=== PATIENT | female | born 1980 | race Caucasian/White ===

== ENCOUNTER 2018-05-22 13:13 | Emergency (ER) | payer SELFPAY ==
[~2018-05-22] VITALS: Ht 152.4 cm; Wt 142.9 kg
[~2018-05-22 13:13] MED LIST: ALBU8.5H2 IH; BENZ200C25 PO; CIPR-225 PO; DOXY100C42 PO; METH4TAB PO; METR500T PO; NAPR550T PO; ONDA4TAB8 PO; PRCD5U PO; PRED10TA PO; TRAM-42 PO; [UNRECOGNIZED DRUG - OTHER]
--- OUTSIDE RECORDS SUMMARY | 2018-05-22 13:21 | XMS REPORT | Continuity of Care Document ---
Author Author [facility] Address Unknown Phone Unavailable Allergies Active Description Code Type Severity Reaction Onset Reported/Identified Relationship to Patient Clinical Status Yes NKANo Known Allergies NKA Miscellaneous Allergy Unknown N/A 04/14/2007 Yes Bactrim Drug Allergy 06/05/2011 Yes Bactrim Drug Allergy N/A N/A 06/05/2011 Medications There is no data. Problems Date Dx Coded Attending Type Code Diagnosis Diagnosed By 04/07/2008 COREY VUONG APRN R 110.5 TINEA CORPORIS 04/07/2008 COREY VUONG APRN R 477.9 RHINITIS ALLERGIC 04/07/2008 110.5 TINEA CORPORIS 04/07/2008 477.9 RHINITIS ALLERGIC 04/07/2008 110.5 TINEA CORPORIS 04/07/2008 477.9 RHINITIS ALLERGIC 04/07/2008 HENNESSY DO, REG K 110.5 TINEA CORPORIS 04/07/2008 HENNESSY DO REG K 477.9 RHINITIS ALLERGIC 04/07/2008 FARSHAD TIRADO SARA R 110.5 TINEA CORPORIS 04/07/2008 FARSHAD TIRADO SARA R 477.9 RHINITIS ALLERGIC 04/07/2008 HENNESSY DO REG K 110.5 TINEA CORPORIS 04/07/2008 HENNESSY DO REG K 477.9 RHINITIS ALLERGIC 04/07/2008 JORGE SAAB PSYD L 110.5 TINEA CORPORIS 04/07/2008 JORGE SAAB PSYD L 477.9 RHINITIS ALLERGIC 04/07/2008 RODRI HINDS APRN L 110.5 TINEA CORPORIS 04/07/2008 RODRI HINDS APRN L 477.9 RHINITIS ALLERGIC 06/20/2008 COREY VUONG APRN 041.19 STAPHYLOCOCCUS INFECTION IN CONDITIONS CLASSIFIED ELSEWHERE AND OF UNSPECIFIED SITE OTHER STAPHYLOCOCCUS 06/20/2008 COREY VUONG APRN 696.1 PSORIASIS 06/20/2008 COREY VUONG APRN R 724.3 SCIATICA 06/20/2008 041.19 STAPHYLOCOCCUS INFECTION IN CONDITIONS CLASSIFIED ELSEWHERE AND OF UNSPECIFIED SITE OTHER STAPHYLOCOCCUS 06/20/2008 696.1 PSORIASIS 06/20/2008 724.3 SCIATICA 06/20/2008 041.19 STAPHYLOCOCCUS INFECTION IN CONDITIONS CLASSIFIED ELSEWHERE AND OF UNSPECIFIED SITE OTHER STAPHYLOCOCCUS 06/20/2008 696.1 PSORIASIS 06/20/2008 724.3 SCIATICA 06/20/2008 HENNESSY DO REG K 041.19 STAPHYLOCOCCUS INFECTION IN CONDITIONS CLASSIFIED ELSEWHERE AND OF UNSPECIFIED SITE OTHER STAPHYLOCOCCUS 06/20/2008 HENNESSY DO REG K 696.1 PSORIASIS 06/20/2008 HENNESSY DO, REG K 724.3 SCIATICA 06/20/2008 FARSHAD TIRADO SARA R 041.19 STAPHYLOCOCCUS INFECTION IN CONDITIONS CLASSIFIED ELSEWHERE AND OF UNSPECIFIED SITE OTHER STAPHYLOCOCCUS 06/20/2008 FARSHAD TIRADO SARA R 696.1 PSORIASIS 06/20/2008 FARSHAD TIRADO SARA R 724.3 SCIATICA 06/20/2008 GERHARD STERLING REG K 041.19 STAPHYLOCOCCUS INFECTION IN CONDITIONS CLASSIFIED ELSEWHERE AND OF UNSPECIFIED SITE OTHER STAPHYLOCOCCUS 06/20/2008 HENNESSY DO REG K 696.1 PSORIASIS 06/20/2008 HENNESSY TRINITY STERLINGA K 724.3 SCIATICA 06/20/2008 JORGE SAAB PSYD ANN L 041.19 STAPHYLOCOCCUS INFECTION IN CONDITIONS CLASSIFIED ELSEWHERE AND OF UNSPECIFIED SITE OTHER STAPHYLOCOCCUS 06/20/2008 JORGE SAAB PSYD ANN L 696.1 PSORIASIS 06/20/2008 JORGE SAAB PSYD ANN L 724.3 SCIATICA 06/20/2008 GUZMAN TIRADO RODRI L 041.19 STAPHYLOCOCCUS INFECTION IN CONDITIONS CLASSIFIED ELSEWHERE AND OF UNSPECIFIED SITE OTHER STAPHYLOCOCCUS 06/20/2008 MADL INDUSTRIAL TECHNOLOGY TEACHER, RODRI L 696.1 PSORIASIS 06/20/2008 MADL CELESTINO, RODRI L 724.3 SCIATICA 01/24/2009 COREY VUONG APRN R 626.6 nonmenstrual bleeding 01/24/2009 626.6 nonmenstrual bleeding 01/24/2009 626.6 nonmenstrual bleeding 01/24/2009 TRINITY HENNESSY DOA K 626.6 nonmenstrual bleeding 01/24/2009 RANDOLPH YEN APRNINA R 626.6 nonmenstrual bleeding 01/24/2009 HENNESSY DO, REG K 626.6 nonmenstrual bleeding 01/24/2009 JORGE SAAB PSYD L 626.6 nonmenstrual bleeding 01/24/2009 RODRI HINDS APRN L 626.6 nonmenstrual bleeding 03/08/2010 COREY VUONG APRN R 599.0 URINARY TRACT INFECTION, SITE NOT SPECIFIED 03/08/2010 599.0 URINARY TRACT INFECTION, SITE NOT SPECIFIED 03/08/2010 599.0 URINARY TRACT INFECTION, SITE NOT SPECIFIED 03/08/2010 HENNESSY DO, REG K 599.0 URINARY TRACT INFECTION, SITE NOT SPECIFIED 03/08/2010 SARA YEN APRN R 599.0 URINARY TRACT INFECTION, SITE NOT SPECIFIED 03/08/2010 HENNESSY DO, REG K 599.0 URINARY TRACT INFECTION, SITE NOT SPECIFIED 03/08/2010 JORGE SAAB PSYD L 599.0 URINARY TRACT INFECTION, SITE NOT SPECIFIED 03/08/2010 RODRI HINDS APRN L 599.0 URINARY TRACT INFECTION, SITE NOT SPECIFIED 01/10/2011 Ot 599.0 URIN TRACT INFECTION NOS 01/10/2011 Ot 789.00 ABDOMINAL PAIN, UNSPECIFIED SITE 03/17/2011 Ot 285.9 ANEMIA NOS 03/17/2011 Ot 695.9 ERYTHEMATOUS COND NOS 03/17/2011 Ot 782.3 EDEMA 03/18/2011 ALDO VUONG APRNIA R 285.9 ANEMIA 03/18/2011 COREY VUONG APRN R 782.3 EDEMA 03/18/2011 285.9 ANEMIA 03/18/2011 782.3 EDEMA 03/18/2011 285.9 ANEMIA 03/18/2011 782.3 EDEMA 03/18/2011 HENNESSY DO, REG K 285.9 ANEMIA 03/18/2011 HENNESSY DO, REG K 782.3 EDEMA 03/18/2011 RANDOLPH YEN APRNINA R 285.9 ANEMIA 03/18/2011 FARSHAD TIRADO SARA R 782.3 EDEMA 03/18/2011 HENNESSY DO, REG K 285.9 ANEMIA 03/18/2011 HENNESSY DO, REG K 782.3 EDEMA 03/18/2011 JORGE SAAB PSYD ANN L 285.9 ANEMIA 03/18/2011 JORGE SAAB PSYD ANN L 782.3 EDEMA 03/18/2011 NATE HINDS APRNA L 285.9 ANEMIA 03/18/2011 GUZMAN TIRADO, RODRI L 782.3 EDEMA 03/22/2011 COREY VUONG APRN R 462 PHARYNGITIS ACUTE 03/22/2011 462 PHARYNGITIS ACUTE 03/22/2011 462 PHARYNGITIS ACUTE 03/22/2011 HENNESSY DO REG K 462 PHARYNGITIS ACUTE 03/22/2011 RANDOLPH YEN APRNINA R 462 PHARYNGITIS ACUTE 03/22/2011 HENNESSY DO, REG K 462 PHARYNGITIS ACUTE 03/22/2011 JORGE SAAB PSYD L 462 PHARYNGITIS ACUTE 03/22/2011 NATE HINDS APRNA L 462 PHARYNGITIS ACUTE 06/05/2011 COREY VUONG APRN R 041.86 H. PYLORI INFECTION 06/05/2011 COREY VUONG APRN R 724.2 BACK PAIN, LOWER 06/05/2011 COREY VUONG APRN R 787.03 VOMITING ALONE 06/05/2011 COREY VUONG APRN R V18.0 FAM HX DIABETES MELLITUS 06/05/2011 041.86 H. PYLORI INFECTION 06/05/2011 724.2 BACK PAIN, LOWER 06/05/2011 787.03 VOMITING ALONE 06/05/2011 V18.0 FAM HX DIABETES MELLITUS 06/05/2011 041.86 H. PYLORI INFECTION 06/05/2011 724.2 BACK PAIN, LOWER 06/05/2011 787.03 VOMITING ALONE 06/05/2011 V18.0 FAM HX DIABETES MELLITUS 06/05/2011 HENNESSY DO, REG K 041.86 H. PYLORI INFECTION 06/05/2011 HENNESSY DO, REG K 724.2 BACK PAIN, LOWER 06/05/2011 HENNESSY DO, REG K 787.03 VOMITING ALONE 06/05/2011 HENNESSY DO, REG K V18.0 FAM HX DIABETES MELLITUS 06/05/2011 SARA YEN APRN R 041.86 H. PYLORI INFECTION 06/05/2011 FARSHAD INDUSTRIAL TECHNOLOGY TEACHER, SARA R 724.2 BACK PAIN, LOWER 06/05/2011 FARSHAD LOYOLAN, SARA R 787.03 VOMITING ALONE 06/05/2011 FARSHAD INDUSTRIAL TECHNOLOGY TEACHER, SARA R V18.0 FAM HX DIABETES MELLITUS 06/05/2011 HENNESSY , REG K 041.86 H. PYLORI INFECTION 06/05/2011 HENNESSY DO, REG K 724.2 BACK PAIN, LOWER 06/05/2011 HENNESSY DO, REG K 787.03 VOMITING ALONE 06/05/2011 HENNESSY DO, REG K V18.0 FAM HX DIABETES MELLITUS 06/05/2011 JORGE SAAB PSYD ANN L 041.86 H. PYLORI INFECTION 06/05/2011 JORGE SAAB PSYD ANN L 724.2 BACK PAIN, LOWER 06/05/2011 JORGE SAAB PSYD ANN L 787.03 VOMITING ALONE 06/05/2011 JORGE SAAB PSYD ANN L V18.0 FAM HX DIABETES MELLITUS 06/05/2011 GUZMAN LOYOLACHUCKIE WeathersNYA L 041.86 H. PYLORI INFECTION 06/05/2011 GUZMAN LOYOLAN, RODRI L 724.2 BACK PAIN, LOWER 06/05/2011 GUZMAN LOYOLAN, RODRI L 787.03 VOMITING ALONE 06/05/2011 GUZMAN LOYOLAN, RODRI L V18.0 FAM HX DIABETES MELLITUS 03/26/2012 ALDO VUONG APRNIA R 271.3 GLUCOSE INTOLERANCE 03/26/2012 271.3 GLUCOSE INTOLERANCE 03/26/2012 271.3 GLUCOSE INTOLERANCE 03/26/2012 HENNESSY TRINITY STERLINGA K 271.3 GLUCOSE INTOLERANCE 03/26/2012 RANDOLPH YEN APRNINA R 271.3 GLUCOSE INTOLERANCE 03/26/2012 GERHARD STERLINGTRINITYA K 271.3 GLUCOSE INTOLERANCE 03/26/2012 JORGE SAAB PSYD ANN L 271.3 GLUCOSE INTOLERANCE 03/26/2012 NATE HINDS APRNA L 271.3 GLUCOSE INTOLERANCE 08/23/2012 COREY VUONG APRN R 487.1 INFLUENZA 08/23/2012 COREY VUONG APRN R 796.2 Blood Pressure Isolated Elevated 08/23/2012 487.1 INFLUENZA 08/23/2012 796.2 Blood Pressure Isolated Elevated 08/23/2012 487.1 INFLUENZA 08/23/2012 796.2 Blood Pressure Isolated Elevated 08/23/2012 HENNESSY DO, REG K 487.1 INFLUENZA 08/23/2012 HENNESSY DO, REG K 796.2 Blood Pressure Isolated Elevated 08/23/2012 FARSHAD TIRADO, SARA R 487.1 INFLUENZA 08/23/2012 FARSHAD INDUSTRIAL TECHNOLOGY TEACHER, SARA R 796.2 Blood Pressure Isolated Elevated 08/23/2012 HENNESSY DO, REG K 487.1 INFLUENZA 08/23/2012 HENNESSY DO, REG K 796.2 Blood Pressure Isolated Elevated 08/23/2012 JORGE SAAB PSYD L 487.1 INFLUENZA 08/23/2012 JORGE SAAB PSYD L 796.2 Blood Pressure Isolated Elevated 08/23/2012 MADL INDUSTRIAL TECHNOLOGY TEACHER, RODRI L 487.1 INFLUENZA 08/23/2012 MADL INDUSTRIAL TECHNOLOGY TEACHER, RODRI L 796.2 Blood Pressure Isolated Elevated 12/07/2012 787.91 DIARRHEA 12/07/2012 TRINITY HENNESSY DOA K 787.91 DIARRHEA 12/07/2012 FARSHAD TIRADO SARA R 787.91 DIARRHEA 12/07/2012 TRINITY HENNESSY DOA K 787.91 DIARRHEA 12/07/2012 JORGE SAAB PSYD L 787.91 DIARRHEA 12/07/2012 GUZMAN TIRADO, RODRI L 787.91 DIARRHEA 09/18/2013 RAIN KOO MD Ot 844.9 SPRAIN OF KNEE LEG NOS 09/18/2013 RAIN KOO MD Ot 959.7 LOWER LEG INJURY NOS 09/18/2013 RAIN KOO MD Ot E000.8 OTHER EXTERNAL CAUSE STATUS 09/18/2013 RAIN KOO MD Ot E029.9 OTHER ACTIVITY 09/18/2013 RAIN KOO MD Ot E849.[address] NEC 09/18/2013 RAIN KOO MD Ot E927.0 OVEREXERTION FROM SUDDEN STRENUOUS MOVEM 10/29/2013 TRINITY HENNESSY DOA K 276.51 DEHYDRATION 10/29/2013 FARSHAD TIRADO SARA R 276.51 DEHYDRATION 10/29/2013 TRINITY HENNESSY DOA K 276.51 DEHYDRATION 10/29/2013 JORGE SAAB PSYD L 276.51 DEHYDRATION 10/29/2013 GUZMAN TIRADO RODRI L 276.51 DEHYDRATION 02/01/2014 FARSHAD INDUSTRIAL TECHNOLOGY TEACHERRANDOLPHSARA R 787.01 NAUSEA WITH VOMITING 02/01/2014 GERHARD REG 787.01 NAUSEA WITH VOMITING 02/01/2014 JORGE SAAB PSYD L 787.01 NAUSEA WITH VOMITING 02/01/2014 GUZMAN LOYOLANNATEA L 787.01 NAUSEA WITH VOMITING 05/20/2014 REG HENNESSY DO K 466.0 BRONCHITIS, ACUTE 05/20/2014 JORGE SAAB PSYD L 466.0 BRONCHITIS, ACUTE 05/20/2014 GUZMAN INDUSTRIAL TECHNOLOGY TEACHER, RODRI L 466.0 BRONCHITIS, ACUTE 05/21/2014 HAYES PRADO, RAIN A Ot 466.0 ACUTE BRONCHITIS 05/21/2014 HAYES PRADO, RAIN A Ot 786.09 RESPIRATORY ABNORM NEC 05/21/2014 HAYES PRADO, RAIN A Ot V15.82 HISTORY OF TOBACCO USE 2014 JORGE SAAB PSYD L 296.32 MO DEPRESSIVE RECURRENT MODERATE 2014 GUZMAN TIRADO RODRI L 296.32 MO DEPRESSIVE RECURRENT MODERATE 08/14/2014 JORGE SAAB PSYD L 278.00 OBESITY 08/14/2014 JORGE SAAB PSYD L 373.11 STYE (HORDEOLUM EXTERNUM) 08/14/2014 JORGE SAAB PSYD L 401.1 HYPERTENSION, BENIGN ESSENTIAL 08/14/2014 NYMichael INDUSTRIAL TECHNOLOGY TEACHER, RODRI L 278.00 OBESITY 08/14/2014 GUZMAN INDUSTRIAL TECHNOLOGY TEACHER, RODRI L 373.11 STYE (HORDEOLUM EXTERNUM) 08/14/2014 GUZMAN INDUSTRIAL TECHNOLOGY TEACHER, RODRI L 401.1 HYPERTENSION, BENIGN ESSENTIAL 09/29/2014 GUZMAN LOYOLAN, RODRI L 692.9 CONTACT DERMATITIS AND OTHER ECZEMA UNSPECIFIED CAUSE 09/29/2014 GUZMAN INDUSTRIAL TECHNOLOGY TEACHER, RODRI L 790.29 OTHER ABNORMAL GLUCOSE 12/19/2015 JULIA FRANK DO Ot E27.8 OTHER SPECIFIED DISORDERS OF ADRENAL GLA 12/19/2015 JULIA FRANK DO Ot E66.01 MORBID (SEVERE) OBESITY DUE TO EXCESS CA 12/19/2015 JULIA FRANK DO Ot F17.210 NICOTINE DEPENDENCE, CIGARETTES, UNCOMPL 12/19/2015 JULIA FRANK DO Kamila Ot 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 OF INTEST, PART UNSP, W/O PERF O 12/19/2015 MONIKA STERLING JULIA Treviño Ot N39.0 URINARY TRACT INFECTION, SITE NOT SPECIF Procedures Code Description [place] [address] INFLUENZA A & B (IN-HOUSE) 08/23/2012 53569 UA LONG DIP 11/12/2012 14679 CULTURE URINE 10/29/2013 62163 UA LONG DIP 10/29/2013 06692 PSYTX PT&/FAMILY 45 MINUTES 09/13/2014 16263 ROUTINE VENIPUNCTURE 09/29/2014 07018 A1C (IN-HOUSE) 09/29/2014 81490 CBC 09/29/2014 8925088 GFR CALC (RESULT ONLY) 09/29/2014 31892 CMP 09/29/2014 15309 TSH 09/29/2014 Results There is no data. Encounters ACCT No. Visit Date/Time Discharge Status Pt. Type Provider Facility Loc./Unit Complaint [id number] 09/29/2014 08:32:00 09/29/2014 23:59:59 CLS Outpatient RODRI HINDS APRN [id number] 09/13/2014 15:59:00 09/13/2014 23:59:59 CLS Outpatient JORGE SAAB PSYD [id number] 05/20/2014 12:29:00 05/20/2014 23:59:59 CLS Outpatient REG HENNESSY DO [id number] 02/01/2014 13:25:00 02/01/2014 23:59:59 CLS Outpatient SARA YEN APRN [id number] 10/29/2013 13:44:00 10/29/2013 23:59:59 CLS Outpatient REG HENNESSY DO [id number] 08/23/2012 12:45:00 08/23/2012 23:59:59 CLS Outpatient COREY VUONG APRN [id number] 12/08/2012 15:39:00 Document Registration [id number] 11/12/2012 14:44:00 Document Registration [id number] 12/14/2015 21:36:00 12/15/2015 01:15:00 DIS Outpatient JULIA FRANK DO [facility] [id number] 05/21/2014 19:01:00 05/21/2014 19:47:00 DIS Emergency RAIN KOO MD [facility] ER [id number] 09/17/2013 23:28:00 09/18/2013 00:40:00 DIS Emergency RAIN KOO MD [facility] ER [id number] 03/17/2011 21:25:00 Document Registration [id number] 01/10/2011 16:04:00 Document Registration
--- NOTE | 2018-05-22 13:25 | ED Chest Pain ---
General Stated Complaint: FALL/CP/BILAT ARM PAIN Source: patient Exam Limitations: no limitations History of Present Illness Date Seen by Provider: May 22, 2018 Time Seen by Provider: 13:22 Initial Comments ER per private vehicle with reports of right sided chest pain and bilateral arm pain. This began yesterday. She states that she did fall Thursday evening but had no pain at the time of the fall. The pain began Thursday, constant in nature, much worse with deep breathing and any movement of the arms. Timing/Duration: 1-2 days Severity/Quality: sharp Location: central Radiation: no radiation ASA po NEWSPAPER SUBSCRIPTION SOLICITOR: No NTG SL NEWSPAPER SUBSCRIPTION SOLICITOR: No Associated Symptoms: No shortness of breath Allergies and Home Medications Allergies Coded Allergies: NKANo Known Allergies (Verified Allergy, Unknown, 04/14/07) Home Medications Albuterol 8.5 Gm Hfa.aer.ad, 2 PUFF IH Q6H 2 PUFFS Prescribed by: RAIN KOO on 05/21/141938 Benzonatate 200 Mg Capsule, 1 EACH PO TID PRN Prescribed by: RAIN KOO on 05/21/141938 Ciprofloxacin HCl 500 Mg Tablet, 500 MG PO BID Prescribed by: JULIA FRANK on 12/15/1556 Doxycycline Monohydrate 100 Mg Capsule, 100 MG PO BID Prescribed by: RAIN KOO on 05/21/141938 Methylprednisolone 4 Mg/Dose-Pack Tab.ds.pk, 1 PKT PO UD Prescribed by: RAIN KOO on 05/21/141938 Metronidazole 500 Mg Tablet, 500 MG PO QID Prescribed by: JULIA FRANK on 12/15/1556 Ondansetron 4 Mg Tab.rapdis, 4 MG PO Q4H Prescribed by: JULIA FRANK on 12/15/1556 Prednisone 10 Mg Tablet, 10 MG PO BID, (Reported) Promethazine/Codeine 5 Ml Syrp, 5 ML PO Q4H PRN for COUGH, (Reported) Tramadol HCl 50 Mg Tablet, 50 MG PO Q4H Prescribed by: JULIA FRANK on 12/15/1556 Patient Home Medication List Home Medication List Reviewed: Yes Review of Systems Review of Systems Constitutional: see HPI EENTM: No Symptoms Reported Respiratory: Denies Cough, Denies Shortness of Air; Other (pain with deep breathing) Cardiovascular: Chest Pain Gastrointestinal: No Symptoms Reported; Denies Abdominal Pain, Denies Diarrhea , Denies Nausea Genitourinary: No Symptoms Reported Musculoskeletal: no symptoms reported Skin: no symptoms reported Psychiatric/Neurological: No Symptoms Reported Endocrine: No Symptoms Reported Past Owlehgf-Snafko-Gdzyzk Hx Patient Social History Recent Foreign Travel: No Contact w/Someone Who Travel: No Immunizations Up To Date Tetanus Booster (TDap): More than 5yrs Past Medical History Section, Gallbladder Hypertension Reproductive Disorders: Yes (HX PID--USES IUD) Female Reproductive Disorders: Pelvic Inflammatory Dis SPRAY GUNNER History: IUD Adverse Reaction/Blood Tranf: No Physical Exam Vital Signs Vital Signs - First Documented 05/22/18 13:18 Temp 98.0 Pulse 86 Resp 16 B/P (MAP) 189/102 (131) Pulse Ox 100 Capillary Refill : Height, Weight, BMI Height: 5'0" Weight: 330lbs. oz. 149.307587nr; BMI Method:Stated General Appearance: No Apparent Distress, WD/WN, Obese, Other (the right upper chest at the right sternal border is tender to palpation. No respiratory distress. Good air movement and clear lungs bilaterally.) HEENT: PERRL/EOMI, TMs Normal Neck: Full Range of Motion, Normal Inspection Respiratory: Lungs Clear, Normal Breath Sounds, No Accessory Muscle Use, No Respiratory Distress Cardiovascular: Regular Rate, Rhythm, Normal Peripheral Pulses Gastrointestinal: Normal Bowel Sounds, Non Tender, Soft, Hepatomegaly; No Rebound, No Tenderness Extremity: Normal Capillary Refill, Normal Inspection Neurologic/Psychiatric: Alert, Oriented x3 Skin: Normal Color, Warm/Dry Progress/Results/Core Measures Results/Orders Lab Results Laboratory Tests Test 05/22/18 13:27 Range/Units White Blood Count 7.3 4.3-11.0 10^3/uL Red Blood Count 4.60 4.35-5.85 10^6/uL Hemoglobin 13.8 11.5-16.0 G/DL Hematocrit 42 35-52 % Mean Corpuscular Volume 91 80-99 FL Mean Corpuscular Hemoglobin 30 25-34 PG Mean Corpuscular Hemoglobin Concent 33 32-36 G/DL Red Cell Distribution Width 13.8 10.0-14.5 % Platelet Count 318 130-400 10^3/uL Mean Platelet Volume 9.7 7.4-10.4 FL Neutrophils (%) (Auto) 60 42-75 % Lymphocytes (%) (Auto) 27 12-44 % Monocytes (%) (Auto) 9 0-12 % Eosinophils (%) (Auto) 3 0-10 % Basophils (%) (Auto) 0 0-10 % Neutrophils # (Auto) 4.4 1.8-7.8 X 10^3 Lymphocytes # (Auto) 2.0 1.0-4.0 X 10^3 Monocytes # (Auto) 0.7 0.0-1.0 X 10^3 Eosinophils # (Auto) 0.2 0.0-0.3 10^3/uL Basophils # (Auto) 0.0 0.0-0.1 10^3/uL Prothrombin Time 13.1 12.2-14.7 SEC INR Comment 1.0 0.8-1.4 Activated Partial Thromboplast Time 28 24-35 SEC Sodium Level 141 135-145 MMOL/L Potassium Level 4.2 3.6-5.0 MMOL/L Chloride Level 105 98-107 MMOL/L Carbon Dioxide Level 24 21-32 MMOL/L Anion Gap 12 5-14 MMOL/L Blood Urea Nitrogen 12 7-18 MG/DL Creatinine 0.72 0.60-1.30 MG/DL Estimat Glomerular Filtration Rate > 60 BUN/Creatinine Ratio 17 Glucose Level 104 70-105 MG/DL Calcium Level 9.6 8.5-10.1 MG/DL Corrected Calcium 9.4 8.5-10.1 MG/DL Magnesium Level 2.3 1.8-2.4 MG/DL Total Bilirubin 0.3 0.1-1.0 MG/DL Aspartate Amino Transf (AST/SGOT) 34 5-34 U/L Alanine Aminotransferase (ALT/SGPT) 54 0-55 U/L Alkaline Phosphatase 120 40-136 U/L Myoglobin 26.1 10.0-92.0 NG/ML Troponin I < 0.30 <0.30 NG/ML B-Type Natriuretic Peptide 16.5 <100.0 PG/ML Total Protein 7.8 6.4-8.2 GM/DL Albumin 4.2 3.2-4.5 GM/DL Amylase Level 51 25-125 U/L Lipase 15 8-78 U/L My Orders Orders - BILL MONTENEGRO GRAINING PRESS OPERATOR Cbc With Automated Diff (05/22/18 13:16) Magnesium (05/22/18 13:16) Chest 1 View, Ap/Pa Only (05/22/18 13:16) Ekg Tracing (05/22/18 13:16) Cardiac Profile 1 (05/22/18 13:16) Comprehensive Metabolic Panel (05/22/18 13:16) Myoglobin Serum (05/22/18 13:16) Protime With Inr (05/22/18 13:16) Partial Thromboplastin Time (05/22/18 13:16) O2 (05/22/18 13:16) Monitor-Rhythm Ecg Trace Only (05/22/18 13:16) Lipid Panel (05/23/18 06:00) Aspirin Chewable Tablet (Baby Aspirin Ch (05/22/18 13:30) Saline Lock/Iv-Start (05/22/18 13:16) Lipase (05/22/18 13:16) Amylase (05/22/18 13:16) BNP (05/22/18 13:16) Iv Heplock-Insert (Order) (05/22/18 13:21) Ketorolac Injection (Toradol Injection) (05/22/18 13:30) Hydrocodone/Apap 5/325 Tablet (Lortab 5 (05/22/18 13:30) Medications Given in ED Current Medications Medications Dose Ordered Sig/Conner Route Start Time Stop Time Status Last Admin Dose Admin Acetaminophen/ Hydrocodone Bitart 1 tab ONCE ONCE PO 05/22/18 13:30 05/22/18 13:31 DC 05/22/18 13:33 1 TAB Aspirin 324 mg ONCE ONCE PO 05/22/18 13:30 05/22/18 13:31 DC 05/22/18 13:33 324 MG Ketorolac Tromethamine 30 mg ONCE ONCE IVP 05/22/18 13:30 05/22/18 13:31 DC 05/22/18 13:33 30 MG Vital Signs/I&O 05/22/18 13:18 Temp 98.0 Pulse 86 Resp 16 B/P (MAP) 189/102 (131) Pulse Ox 100 Departure Communication (Admissions) [id number] discussed with her the possibility of this representing a pleurisy. She was very concerned this was her heart but insists that she is just fine until she moves or takes a deep breath. This pain is not cardiac. We will discharged home with a course of pain medication to follow up with primary care.- Impression Primary Impression: Pleuritic chest pain Additional Impression: Chest wall pain Disposition: HOME, SELF-CARE Condition: Stable Departure-Patient Inst. Decision time for Depature: 14:24 Referrals: [facility] (PCP/Family) Primary Care Physician Patient Instructions: Pleuritic Chest Pain (DC) Add. Discharge Instructions: 1. Return to ER for any shortness of breath fevers sweating or other concerns as severe pain. Take pain medication as directed. Follow-up with your regular doctor on Thursday. Scripts Naproxen (Naproxen) 500 Mg Tablet 500 MG PO BID PRN for PAIN-MILD TO MODERATE, #30 TAB Prov: BILL MONTENEGRO APRN 05/22/18 Hydrocodone/Acetaminophen (Hydrocodone-Acetamin 5-325 mg) 1 Each Tablet 1 EACH PO Q4-6HR PRN for PAIN-MODERATE, #10 TAB Prov: BILL MONTENEGRO APRN 05/22/18 BILL MONTENEGRO APRN May 22, 2018 13:25
[2018-05-22] MEDS ORDERED: ASPIRIN 81 MG CHEW (CHILDREN'S ASA) PO ONE (13:30)
[2018-05-22] MEDS ORDERED: HYDROcodone/APAP 5 MG/325 MG (LORTAB) TAB PO ONE (13:30)
[2018-05-22] MEDS ORDERED: KETOROLAC 30 MG/ML VIAL IVP ONE (13:30)
[2018-05-22 13:41] LABS: BASOPHILS % (AUTO) 0 % (0-10); EOSINOPHILS # (AUTO) 0.2 10^3/uL (0.0-0.3); EOSINOPHILS % (AUTO) 3 % (0-10); HEMATOCRIT 42 % (35-52); HEMOGLOBIN 13.8 G/DL (11.5-16.0); LYMPHOCYTES % (AUTO) 27 % (12-44); MEAN CORPUSCULAR HEMOGLOBIN 30 PG (25-34); MEAN CORPUSCULAR HGB CONC 33 G/DL (32-36); MEAN CORPUSCULAR VOLUME 91 FL (80-99); MEAN PLATELET VOLUME 9.7 FL (7.4-10.4); MONOCYTES # (AUTO) 0.7 X 10^3 (0.0-1.0); MONOCYTES % (AUTO) 9 % (0-12); NEUTROPHILS # (AUTO) 4.4 X 10^3 (1.8-7.8); NEUTROPHILS % (AUTO) 60 % (42-75); PLATELET COUNT 318 10^3/uL (130-400); RED CELL DISTRIBUTION WIDTH 13.8 % (10.0-14.5); WHITE BLOOD COUNT 7.3 10^3/uL (4.3-11.0)
--- NOTE | 2018-05-22 13:49 | Diagnostic Imaging Report ---
PATIENT HISTORY: Anterior right chest pain. TECHNIQUE: Single frontal view of the chest. COMPARISON: 12/14/2015. FINDINGS: The lung volumes are normal. No focal consolidation is seen. No large pleural effusion or pneumothorax is seen. The cardiomediastinal silhouette appears large, but likely related to technique. No acute osseous abnormality is seen. IMPRESSION: No acute pulmonary abnormality seen. Dictated by: Dictated on workstation # [id number]
[2018-05-22 13:52] LABS: PROTHROMBIN TIME PATIENT 13.1 SEC (12.2-14.7)
[2018-05-22 14:00] LABS: ALANINE AMINOTRANSFERASE 54 U/L (0-55); ALBUMIN 4.2 GM/DL (3.2-4.5); ALKALINE PHOSPHATASE 120 U/L (40-136); AMYLASE 51 U/L (25-125); BILIRUBIN,TOTAL 0.3 MG/DL (0.1-1.0); BUN/CREATININE RATIO 17; CALCIUM 9.6 MG/DL (8.5-10.1); CARBON DIOXIDE 24 MMOL/L (21-32); CHLORIDE 105 MMOL/L (98-107); CREATININE SERUM 0.72 MG/DL (0.60-1.30); GFR ESTIMATED > 60; GLUCOSE 104 MG/DL (70-105); LIPASE 15 U/L (8-78); MAGNESIUM 2.3 MG/DL (1.8-2.4); POTASSIUM 4.2 MMOL/L (3.6-5.0); SODIUM 141 MMOL/L (135-145); TOTAL PROTEIN 7.8 GM/DL (6.4-8.2)
[2018-05-22 14:06] LABS: MYOGLOBIN SERUM 26.1 NG/ML (10.0-92.0)
[2018-05-22] MEDS ORDERED: NAPR-915 PO (14:25)
[2018-05-22] MEDS ORDERED: HYDR-3812 PO (14:25)
[2018-05-22 14:38] VITALS: BP 147/82
== END 2018-05-22 14:38 | disposition home or self-care (01) ==
LOC: EDUNIT# 13:13 → ER 13:15
DX: R07.81 Pleurodynia (principal); I10 Essential (primary) hypertension; Z97.5 Presence of (intrauterine) contraceptive device; Z87.448 Personal history of other diseases of urinary system; Z79.51 Long term (current) use of inhaled steroids; Z79.52 Long term (current) use of systemic steroids; Z98.890 Other specified postprocedural states; W19.XXXA Unspecified fall, initial encounter
CPT/HCPCS: 36415; 71045; 80053; 82150; 83690; 83735; 83874; 83880; 84484; 85025; 85610; 85730; 93005; 93041

== ENCOUNTER 2018-09-07 21:45 | Emergency (ER) | payer SELFPAY ==
[~2018-09-07] VITALS: Ht 154.9 cm; Wt 147.4 kg
[~2018-09-07 21:45] MED LIST changes: +HYDR-3812 PO; +NAPR-915 PO
[2018-09-07] MEDS ORDERED: predniSONE 20 MG TAB PO ONE (22:00)
[2018-09-07] MEDS ORDERED: CYCLOBENZAPRINE 10 MG (FLEXERIL) TAB PO SCH (22:00)
[2018-09-07] MEDS ORDERED: KETOROLAC 60 MG/2 ML VIAL IM ONE (22:00)
--- NOTE | 2018-09-07 22:05 | ED General ---
General Chief Complaint: General Problems/Pain Stated Complaint: SIATIC NERVE PAIN Source of Information: Patient Exam Limitations: No Limitations History of Present Illness Date Seen by Provider: Sep 07, 2018 Time Seen by Provider: 21:55 Initial Comments 38-year-old female who presents to emergency room with complaints of right sciatic nerve pain. She reports she's tried her home remedies without improvement. She denies any trauma that could've resulted in an injury. Allergies and Home Medications Allergies Coded Allergies: Mari Known Allergies (Verified Allergy, Unknown, 04/14/07) Home Medications Albuterol 8.5 Gm Hfa.aer.ad, 2 PUFF IH Q6H 2 PUFFS Prescribed by: RAIN KOO on 05/21/141938 Benzonatate 200 Mg Capsule, 1 EACH PO TID PRN Prescribed by: RAIN KOO on 05/21/141938 Ciprofloxacin HCl 500 Mg Tablet, 500 MG PO BID Prescribed by: JULIA FRANK on 12/15/1556 Doxycycline Monohydrate 100 Mg Capsule, 100 MG PO BID Prescribed by: RAIN KOO on 05/21/141938 Hydrocodone/Acetaminophen 1 Each Tablet, 1 EACH PO Q4-6HR PRN for PAIN-MODERATE Prescribed by: BILL MONTENEGRO on 05/22/18 142 Methylprednisolone 4 Mg/Dose-Pack Tab.ds.pk, 1 PKT PO UD Prescribed by: RAIN KOO on 05/21/141938 Metronidazole 500 Mg Tablet, 500 MG PO QID Prescribed by: JULIA FRANK on 12/15/1556 Naproxen 500 Mg Tablet, 500 MG PO BID PRN for PAIN-MILD TO MODERATE Prescribed by: BILL MONTENEGRO on 05/22/18 142 Ondansetron 4 Mg Tab.rapdis, 4 MG PO Q4H Prescribed by: JULIA FRANK on 12/15/1556 Prednisone 10 Mg Tablet, 10 MG PO BID, (Reported) Promethazine/Codeine 5 Ml Syrp, 5 ML PO Q4H PRN for COUGH, (Reported) Tramadol HCl 50 Mg Tablet, 50 MG PO Q4H Prescribed by: JULIA FRANK on 12/15/1556 Past Thzjywy-Gqidei-Lyewiw Hx Patient Social History Recent Foreign Travel: No Contact w/Someone Who Travel: No Recent Hopitalizations: Yes Immunizations Up To Date Tetanus Booster (TDap): More than 5yrs Past Medical History Surgeries: Yes Section, Gallbladder Respiratory: No Cardiac: Yes Hypertension Neurological: No Reproductive Disorders: Yes (HX PID--USES IUD) Female Reproductive Disorders: Pelvic Inflammatory Dis 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 oz. 142.500761lg; BMI Method:Stated Progress/Results/Core Measures Suspected Sepsis SIRS Temperature: Pulse: Respiratory Rate: Blood Pressure / Mean: Results/Orders My Orders Orders - KAUSHIK CAMPBELL Ketorolac Injection (Toradol Injection) (09/07/18 22:00) Prednisone Tablet (Deltasone Tablet) (09/07/18 22:00) Cyclobenzaprine Tablet (Flexeril Tablet) (09/07/18 22:00) Vital Signs/I&O Capillary Refill : Departure Impression Primary Impression: Sciatic nerve pain Disposition: 01 HOME, SELF-CARE Condition: Stable/Unchanged Departure-Patient Inst. Decision time for Depature: 22:11 Referrals: [facility] (PCP/Family) Primary Care Physician Patient Instructions: Sciatica (DC) Add. Discharge Instructions: Take medications as directed. You may use Tylenol and ibuprofen as directed by the bottle for pain relief. Follow-up with her primary care provider as needed. Return back to the emergency room for worsening symptoms or concerns as needed. All discharge instructions reviewed with patient and/or family. Voiced understanding. Scripts Cyclobenzaprine HCl (Cyclobenzaprine HCl) 10 Mg Tablet 10 MG PO Q8H PRN for SPASMS, #10 TAB Prov: KASUHIK CAMPBELL 09/07/18 Prednisone (Prednisone) 20 Mg Tab 40 MG PO DAILY for 4 Days, #8 TAB Prov: KAUSHIK CAMPBELL 09/07/18 KAUSHIK CAMPBELL Sep 07, 2018 22:05
[2018-09-07] MEDS ORDERED: PRD20T PO (22:14)
[2018-09-07] MEDS ORDERED: CYCL10TA9 PO (22:14)
[2018-09-07 22:55] VITALS: BP 146/101
== END 2018-09-07 22:55 | disposition home or self-care (01) ==
LOC: EDUNIT# 21:45 → ER 21:48
DX: M54.31 Sciatica, right side (principal); I10 Essential (primary) hypertension; E66.01 Morbid (severe) obesity due to excess calories; Z87.448 Personal history of other diseases of urinary system; Z97.5 Presence of (intrauterine) contraceptive device; Z79.51 Long term (current) use of inhaled steroids; Z79.52 Long term (current) use of systemic steroids; Z98.890 Other specified postprocedural states; Z68.44 Body mass index [BMI] 60.0-69.9, adult
CPT/HCPCS: 99284

== ENCOUNTER 2018-10-30 23:37 | Emergency (ER) | payer SELFPAY ==
[~2018-10-30] VITALS: Ht 152.4 cm; Wt 145.1 kg
[~2018-10-30 23:37] MED LIST changes: +CYCL10TA9 PO; +PRD20T PO
--- NOTE | 2018-10-31 01:36 | ED General ---
General Chief Complaint: Chest Wall Stated Complaint: BACK PAIN Nursing Triage Note: PT HAD A PULLING INJURY TO LEFT ARM YESTERDAY. PT STATES PAIN WORSENS WITH COUGHING AND DEEP BREATHING. PT STATES CHEST DISCOMFORT RADIATES TO THE BACK. Nursing Sepsis Screen: No Definite Risk Source of Information: Patient Exam Limitations: No Limitations History of Present Illness Date Seen by Provider: October 30, 2018 Time Seen by Provider: 23:42 Initial Comments This 38-year-old woman presents to the emergency room with complaints of pain in the right upper chest since having a pulling and twisting injury getting into a car yesterday. She has taken some ibuprofen which did not resolve the pain. She had a similar injury after a fall in May. She was seen in the ER and diagnosed with pleuritic chest pain and treated accordingly. She states pain is worse when taking a deep breath, laughing, or exerting herself. It also hurts w orse with palpation and with raising the right arm toward her head. She also has a complaint about spreading ecchymosis over her right lower leg after bumping her knee a couple days ago. She has no pain, tenderness, or swelling of the right lower extremity. Allergies and Home Medications Allergies Coded Allergies: NKANo Known Allergies (Verified Allergy, Unknown, 04/14/07) Home Medications Albuterol 8.5 Gm Hfa.aer.ad, 2 PUFF IH Q6H 2 PUFFS Prescribed by: RAIN KOO on 05/21/141938 Benzonatate 200 Mg Capsule, 1 EACH PO TID PRN Prescribed by: RAIN KOO on 05/21/141938 Ciprofloxacin HCl 500 Mg Tablet, 500 MG PO BID Prescribed by: JULIA FRANK on 12/15/15 0057 Cyclobenzaprine HCl 10 Mg Tablet, 10 MG PO Q8H PRN for SPASMS Prescribed by: KAUSHIK CAMPBELL on 09/07/18 2214 Doxycycline Monohydrate 100 Mg Capsule, 100 MG PO BID Prescribed by: RAIN KOO on 05/21/141938 Hydrocodone/Acetaminophen 1 Each Tablet, 1 EACH PO Q4-6HR PRN for PAIN-MODERATE Prescribed by: BILL MONTENEGRO on 05/22/18 1425 Methylprednisolone 4 Mg/Dose-Pack Tab.ds.pk, 1 PKT PO UD Prescribed by: RAIN KOO on 05/21/141938 Metronidazole 500 Mg Tablet, 500 MG PO QID Prescribed by: JULIA FRANK on 12/15/1556 Naproxen 500 Mg Tablet, 500 MG PO BID PRN for PAIN-MILD TO MODERATE Prescribed by: BILL MONTENEGRO on 05/22/18 1425 Ondansetron 4 Mg Tab.rapdis, 4 MG PO Q4H Prescribed by: JULIA FRANK on 12/15/1556 Prednisone 10 Mg Tablet, 10 MG PO BID, (Reported) Prednisone 20 Mg Tab, 40 MG PO DAILY Prescribed by: KAUSHIK CAMPBELL on 09/07/18 221 Promethazine/Codeine 5 Ml Syrp, 5 ML PO Q4H PRN for COUGH, (Reported) Tramadol HCl 50 Mg Tablet, 50 MG PO Q4H Prescribed by: JULIA FRANK on 12/15/1556 Patient Home Medication List Home Medication List Reviewed: Yes Review of Systems Review of Systems Constitutional: no symptoms reported EENTM: no symptoms reported Respiratory: see HPI Cardiovascular: no symptoms reported Gastrointestinal: no symptoms reported Genitourinary: no symptoms reported : No Musculoskeletal: see HPI Skin: see HPI Psychiatric/Neurological: No Symptoms Reported Hematologic/Lymphatic: No Symptoms Reported Past Roghbwm-Nuewwh-Vuwhtr Hx Past Med/Social Hx: Reviewed Nursing Past Med/Soc Hx Patient Social History Alcohol Use: Occasionally Uses Recreational Drug Use: No Smoking Status: Former Smoker Type Used: Cigarettes 2nd Hand Smoke Exposure: Yes Recent Foreign Travel: No Contact w/Someone Who Travel: No Recent Infectious Disease Expo: No Recent Hopitalizations: Yes Physical Abuse: No Sexual Abuse: No Mistreated: No Fear: No Immunizations Up To Date Tetanus Booster (TDap): More than 5yrs Past Medical History Surgeries: Yes Section, Gallbladder Respiratory: No Cardiac: Yes Hypertension Neurological: No Reproductive Disorders: Yes (HX PID--USES IUD) Female Reproductive Disorders: Pelvic Inflammatory Dis 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 oz. 145.231111zo; BMI Method:Stated General Appearance: No Apparent Distress, WD/WN, Obese HEENT: PERRL/EOMI, Normal ENT Inspection Neck: Normal Inspection Respiratory: Lungs Clear, Normal Breath Sounds, No Accessory Muscle Use, No Respiratory Distress, Other (There is tenderness over the right chest lateral to the sternum) Cardiovascular: Regular Rate, Rhythm, No Edema, No Murmur Extremity: Normal Range of Motion, Non Tender, No Calf Tenderness, No Pedal Edema, Other (There is scattered ecchymosis over the right lower extremity between the knee and ankle. The calf is nontender and not swollen. Homans sign negative) Neurologic/Psychiatric: Alert, Oriented x3, No Motor/Sensory Deficits, Normal Mood/Affect, soap tender II-XII Norm as Tested Skin: Normal Color, Warm/Dry Progress/Results/Core Measures Suspected Sepsis Recent Fever Within 48 Hours: No Infection Criteria Present: None New/Unexplained Altered Menta: No Sepsis Screen: No Definite Risk SIRS Temperature:97.6 Pulse: 82 Respiratory Rate: 18 Blood Pressure / Mean: Results/Orders My Orders Orders - DILLON VICTOR MD Chest Pa/Lat (2 View) (10/31/18 00:44) Vital Signs/I&O Capillary Refill : Less Than 3 Seconds Progress Note : Progress Note Although patient's symptoms are similar to the pleuritic chest pain she had in t he past, this appears to be musculoskeletal in nature. It is reproducible with palpation and with abduction of the right arm in addition to the pain associated with deep breathing, coughing, etc. This suggests a musculoskeletal etiology. Chest x-ray was obtained and was unremarkable. Patient was provided reassurance and was given return precautions. Return precautions were discussed. I believe patient's right lower extremity ecchymosis must have been related to a small vessel rupture when she bumped her knee. There was no swelling or tenderness in the calf and Homans sign was negative. Departure Impression Primary Impression: Chest wall pain Disposition: HOME, SELF-CARE Condition: Improved Departure-Patient Inst. Decision time for Depature: 01:30 Referrals: [facility] (PCP/Family) Primary Care Physician Patient Instructions: Chest Pain That Is Not Caused by the Heart (DC) Add. Discharge Instructions: You may take ibuprofen up to 600 mg every 6 hours as needed and Tylenol (acetaminophen) up to 1000 mg every 6 hours as needed for pain. Return to care if you have worsening symptoms including shortness of breath, leg pain or swelling, worsening chest pain, etc. All discharge instructions reviewed with patient and/or family. Voiced understanding. Copy Copies To 1: REG HENNESSY JOSHUA T MD October 31, 2018 01:36
[2018-10-31 01:45] VITALS: BP 132/77
--- NOTE | 2018-10-31 06:51 | Diagnostic Imaging Report ---
INDICATION: Chest pain. Comparison made with prior examination from 05/22/18. FINDINGS: The heart size, mediastinal configuration, and pulmonary vascularity are within normal limits. There is no pleural effusion, pneumothorax, or pneumonia. The osseous structures are unremarkable. IMPRESSION: No acute cardiopulmonary abnormality. Dictated by: Dictated on workstation # [id number]
== END 2018-10-31 01:45 | disposition home or self-care (01) ==
LOC: EDUNIT# 23:37 → ER 23:38
DX: R07.89 Other chest pain (principal); I10 Essential (primary) hypertension; E66.01 Morbid (severe) obesity due to excess calories; Z87.891 Personal history of nicotine dependence
CPT/HCPCS: 71046

== ENCOUNTER 2019-12-15 05:52 | Outpatient (RCR) | payer OTHER ==
[~2019-12-15] VITALS: Ht 152.4 cm; Wt 156.8 kg
[~2019-12-15 05:52] MED LIST changes: +ACHD5005 PO; -HYDR-3812 PO; +LISI-552 PO; +PANT20TA3 PO
== END 2019-12-15 15:10 | disposition home or self-care (01) ==
LOC: PREOP 05:52
PROVIDERS: ATTEND Surgery
DX: Z01.812 Encounter for preprocedural laboratory examination (principal); K92.1 Melena; K21.9 Gastro-esophageal reflux disease without esophagitis; Z20.828 Contact with and (suspected) exposure to other viral communicable diseases
CPT/HCPCS: 87635

== ENCOUNTER 2019-12-20 09:24 | Day surgery (SDC) | payer OTHER ==
[2019-12-20] VITALS (8 sets, daily range): BP systolic 115–141; BP diastolic 63–87
[~2019-12-20] VITALS: Ht 152.4 cm; Wt 156.8 kg
[2019-12-20] MEDS ORDERED: LACTATED RINGERS 1,000 ML IV STA (09:27)
[2019-12-20] MEDS ORDERED: MIDAZOLAM 2 MG/2 ML (VERSED) VIAL ONE (09:29)
[2019-12-20] MEDS ORDERED: PROPOFOL INJECTION 50 ML IV ONE ×2 (09:29→10:10)
[2019-12-20] MEDS ORDERED: HURRICAINE EXT TUBE (BENZOCAINE) XX PRN (09:30)
[2019-12-20] MEDS ORDERED: LACTATED RINGERS 1,000 ML IV ONE (09:32)
--- NOTE | 2019-12-20 09:33 | Progress Note-Pre Operative ---
Pre-Operative Progress Note H&P Reviewed The H&P was reviewed, patient examined and no changes noted. Date Seen by Provider: Dec 20, 2019 Time Seen by Provider: :33 Date H&P Reviewed: Dec 20, 2019 Time H&P Reviewed: 09:33 Pre-Operative Diagnosis: blood in stool, gerd MILI CHOUDHURY DO Dec 20, 2019 09:33
--- NOTE | 2019-12-20 10:41 | Progress Note-Post Operative ---
Post-Operative Progess Note Surgeon (s)/Manager Wound (s) Surgeon MILI CHOUDHURY DO Manager Wound: na Pre-Operative Diagnosis blood in stool, gerd Post-Operative Diagnosis hiatal hernia, diverticulosis Procedure & Operative Findings Date of Procedure 12/20/19 Procedure Performed/Findings egd c biopsies, colonoscopy Anesthesia Type per dress draper Estimated Blood Loss Estimated blood loss (mL): none Specimens/Packing Specimens Removed antrum, ge MILI CHOUDHURY DO Dec 20, 2019 10:40
--- NOTE | 2019-12-20 10:42 | Anesthesia-General Post-Op ---
MAC Patient Condition Mental Status/LOC: Same as Preop Cardiovascular: Satisfactory Nausea/Vomiting: Absent Respiratory: Satisfactory Pain: Controlled Complications: Absent Post Op Complications Complications None Follow Up Care/Instructions Patient Instructions None needed. Anesthesiology Discharge Order Discharge Order Patient is doing well, no complaints, stable vital signs, no apparent adverse anesthesia problems. No complications reported per nursing. FELIPA MCMAHON CRNA Dec 20, 2019 10:41
--- NOTE | 2019-12-20 10:42 | Discharge Inst-Simple/Standard ---
Discharge Inst-Standard Patient Instructions/Follow Up Plan of Care/Instructions/FU: 2 weeks Mukesh Activity as Tolerated: Yes Discharge Diet: Regular Diet (high fiber) MILI CHOUDHURY DO Dec 20, 2019 10:42
--- OUTSIDE RECORDS SUMMARY | 2019-12-20 10:49 | XMS REPORT ---
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 Name Role Phone DELIO SPICER Unavailable Unavailable [facility] Unavailable [facility] Unavailable JESUS MENCHACA Unavailable DARYL TAYLOR Unavailable JORGE CURTIS Unavailable [facility] SARMIENTO Unavailable COCO CHAU Unavailable [facility] SARMIENTO Unavailable MARGUERITE DOWLING Unavailable JULIA CALDERON Unavailable [facility] Unavailable DELIO SPICER Unavailable [facility], Doctor Unavailable Unavailable [facility] PCP [facility], Doctor Unavailable Unavailable [facility], Doctor Unavailable Unavailable DELIO SPICER S Unavailable Unavailable [facility], Doctor Unavailable Unavailable [facility], Doctor Unavailable Unavailable VALENTE PRADO, DILLON Nix Unavailable Unavailable YARA Negrete Unavailable JORGE SAAB Unavailable [facility], Doctor Unavailable Unavailable DELIO SPICER Unavailable JORGE A DAVIES Unavailable Unavailable Unavailable Unavailable Unavailable Unavailable Unavailable Allergies Normalized Allergy Reported Date of Reaction(s) Care Provider Facility Allergy Type classification allergen Allergy Onset MA (9 Unclassified NKANo Known 04-14-2007 - no information TR BRAULIO KOO , Not Available sources.) Allergies (43133) Food Allergy Shellfish Shrimp product 09-04-2018 - Unknown KASSANDRA [facility] (1 source.) [id number] (Other Health Center Phone: of [facility] ) [place] ([address]) Medications Current Medications Medication Ingredient Drug Dose Dates Status Sig Sig Care Class(es) (Normalized) (Original) Provid er acetaminoph acetaminoph no 500 mg Active take 1 Acetaminophe no en 500 mg en information capsule by n 500 MG name oral tablet mouth every Orally every (4 six hours as 6 hrs 1 sources.) needed capsule as needed 6h Active 500 mg Active no Acetamin no name inform ophen ation 500 MG Orally every 6 hrs 1 capsule as needed 6h Active amoxicillin amoxicillin Penicillin- 875 mg 05-11-20 Active no Amoxicillin no 875 mg oral Translation class 18 information 875 MG name tablet (3 s: [ Antibacteri Orally every sources.) Amoxicillin al 12 hrs 1 875 MG] tablet 12h Apr, 10 day(s) Active 875 mg 04-12-2018 Active no Amoxicil no name inform jessica 875 ation MG Orally every 12 hrs 1 tablet 12h Mar, 10 day(s) Active hydroCHLORO hydroCHLORO Thiazide 25 mg 10-30-19 Active take 1 Hydrochlorot no thiazide 25 thiazide Diuretic 14 tablet by hiazide 25 na me mg oral Translation mouth once mg 1 tablet tablet (1 s: [ daily by Oral source.) Hydrochloro route 1 time thiazide 25 per day 17 mg] Oct, 2013 Active hydrocortis hydrocortis Corticoster 25 04-12-20 Active no Hydrocortiso no one 25 one oid mg/mL 18 information ne 2.5 % name mg/ml Translation Externally topical s: [ Twice a day cream (3 Hydrocortis 1 sources.) one 2.5 %] application to affected area 12h Mar, 10 days Active ibuprofen ibuprofen Nonsteroida 200 mg Active take 1 Ibuprofen no 200 mg oral Translation l tablet by 200 MG name tablet (4 s: [ Anti-inflam mouth three Orally Thre e sources.) Ibuprofen matory Drug times daily times a day 200 MG] at mealtime 1 tablet as needed with food or milk as needed 8h Active nitrofurant Nitrofurant Nitrofuran 100 mg 11-13-19 Active take 1 Nitrofuranto no oin, oin Antibacteri 13 capsule by in nam e macrocrysta Translation al mouth twice Macrocrystal ls 100 mg s: [ daily 100 mg 1 oral Nitrofurant capsule by capsule (1 oin Oral route 2 source.) Macrocrysta times per l 100 mg] day for 7 day(s) October, Active no Tobramycin Aminoglycos 2 08-15-19 Active take 2 Tobr amycin no information harris drop(s 15 drop(s) into 0.3 % n chaka (1 source.) Antibacteri ) the eye(s) instill 2 al every four drops into hours affected eye(s) by ophthalmic route every 4 hours Aug, Active Completed/Discontinued Medications Medication Ingredient Drug Dose Dates Status Sig Sig Care Class(es) (Normalized) (Original) Provid er acetaminoph Acetaminoph Opioid 05-22-20 Complete take 1 Hydrocod one/ Peter en 325 mg / en / Agonist 18 d tablet by Demarcus Flynn Wheat Shi[employer] HYDROcodone HYDROcodone mouth every n [place] bitartrate four to six (Hydrocodone (no 5 mg oral hours as -Acetamin phone) tablet (3 needed for 5-325 Mg) 1 sources.) pain, then Each Tablet take 5-325 1 Each ORAL mg by mouth Q4-6HR as as needed needed for for pain Pain-Moderat e 10 Tab 05/22/18 no Albuterol no 1 05-21-20 Complete take 1 Albutero l Rain information (Proair information puff(s 14 d puff(s) by (Proair Hfa) A (3 Hfa) 8.5 Gm ) inhalation 8.5 Gm Neelam sources.) Hfa.aer.ad every six Hfa.aer.ad 2 (no hours Puff phone) RESPIRATORY (INHALATION) Every 6 Hours 1 Gram 2 PUFFS 05/21/14 no Calcium no 05-21-20 Complete no Calcium (no information Bioflex , information 14 d information Biof marlene , phone) (3 Not Not sources.) Applicable Applicable Discontinued cyclobenzap cyclobenzap Muscle 10 mg 09-08-19 Complete take 1 Cyclobenzapr Kaushik rine rine Relaxant 19 d tablet by ine Hcl 10 Berno t hydrochlori mouth every Mg Tablet 10 (no de 10 mg eight hours Mg ORAL phone) oral tablet as needed Every 8HRS (2 for muscle as needed sources.) spasms for Spasms 10 Tab 09/07/18 Problems Active Problems Problem Normalized Date Last Normalized Normalized Provider Fa cility Classification Problem(s) Recorded Problem Problem Sta tus Duration Osteoarthritis Arthritis Chronic Active DELIO SPICER Co mmunity (4 sources.) Translations: 36301 (Other Health Center [ Arthritis, - Phone: of [facility] Arthritis ) [place] ([address]) M19.90] Other Body mass Chronic Active NATALEEOn license of [facility] nutritional; index (BMI) SARMIENTO [address] Health Center endocrine; and 60.0-69.9, of [facility] metabolic adult [place] ([address]) disorders (20 Translations: sources.) [ - BMI 60.0-69.9, adult Z68.44] Nonspecific Chest wall Episodic Active BILL MONTENEGRO Not Marlen ilable chest pain (8 pain (86517) sources.) Translations: [ OTHER CHEST PAIN] Other injuries Knee, leg, Episodic Active RAIN KOO N ot Available and conditions ankle, and MD (38901) due to foot injury external causes (1 source.) 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 Active BILL MONTENEGRO Not Availa ble aftercare (3 (current) use (71890) sources.) of inhaled steroids Other [facility] Episodic Active BILL MONTENEGRO Not Availa ble aftercare (3 (current) use (18493) sources.) of systemic steroids Gastrointestin Melena Episodic Active DELIO SPICER Com munity al hemorrhage Translations: 93588 ([facility] (2 sources.) [ - Bloody Phone: of [facility] stools K92.1] ) [place] ([address]) Other injuries Other injury Episodic Active Doctor Comm unity and conditions of unspecified [facility] due to body region, of [facility] external initial [place] ([address]) causes (3 encounter sources.) Translations: [ - Hematoma T14.8XXA] Genitourinary Personal Episodic Active BILL MONTENEGRO Not Marlen ilable symptoms and history of (48287) ill-defined other diseases conditions (3 of urinary sources.) system Screening and Personal Episodic Active RAIN KOO , Not Available history of history of MD (16600) mental health tobacco use and substance Translations: abuse codes (2 [ PERSONAL sources.) HISTORY OF NICOTINE DEPENDENCE] Other lower Pleurodynia Episodic Active BILL MONTENEGRO Not Av ailable respiratory (39977) disease (2 sources.) Contraceptive Presence of Episodic Active BILL MONTENEGRO Not Available and (intrauterine) (34518) procreative contraceptive management (3 device sources.) Sprains and Sprains and Episodic Active Doctor Communit y strains (7 strains of [facility] sources.) unspecified of [facility] site of knee [place] ([address]) and leg Translations: [ - Acute thoracic myofascial strain, initial encounter S29.019A] Past or Other Problems Problem Normalized Date Last Normalized Normalized Provider Fa cility Classification Problem(s) Recorded Problem Problem Sta tus Duration External cause Accidents no information no information RAIN VILLEGAS , Not Available codes: Place occurring in (70757) of occurrence other (1 source.) specified places External cause Other activity no information no information Dinah KOO Not Available codes: Translations: (30161) Unspecified (1 [ OTHER source.) EXTERNAL CAUSE STATUS] Other injuries Other injury no information no information Docto r Community and conditions of unspecified [facility] due to body region, of [facility] external initial [place] ([address]) causes (3 encounter sources.) Translations: [ - Hematoma T14.8XXA] Other lower Other Episodic Completed RAIN KOO , Not Rafy ailable respiratory respiratory (47232) disease (1 abnormalities source.) Residual Other no information no information BILL MONTENEGRO N ot Available codes; specified (34198) unclassified postprocedural (3 sources.) states External cause Overexertion no information no information RAIN KOO Not Available codes: from sudden (85725) Overexertion strenuous (1 source.) movement External cause Unspecified no information no information BILL MONTENEGRO Not Available codes: Fall (2 fall, initial (41836) sources.) encounter Procedures Procedure Normalized Procedure Procedure Result Performer Facility Date 05-11-2018 Billing Notes on claim no information no name [facility] ([id number]) 10-29-2013 Culture bacterial no information no name [facility] (00804) 10-31-2018 Diagnostic radiography no information DILLON KENNEDYEMANN [facility] of chest, [facility] (19956) and lateral 05-22-2018 Electrocardiographic no information BILL GOMEZ [facility] (79348) 09-04-2018 Iaadiadoo no information no name [facility] ealth streptococcus group a [facility] (68724) 05-22-2018 Plain chest X-ray no information BILL MONTENEGRO [facility] (12213) 2014 Psychiatric diagnostic no information no name [facility] evaluation [facility] (95935) 05-11-2018 Screening of a patient no information no name [facility] (68936) 10-29-2013 Urnls dip stick/tablet no information no name [facility] rgnt auto w/o [facility] (95300) Immunizations Normalized Immunization Date Notes Care Provider Facili ty Immunization influenza, 03-26-2017 no information no name Not Availab le injectable, (96094) quadrivalent, preservative free influenza, seasonal, 03-25-2018 no information no name Co [facility] injectable [facility] (97081) vaccine no information [facility] Translations: [ 13794 [facility] vaccine] (89178) Results Test Name Value Interpretation Reference Range Date Time Fa cility (Normalized) (Normalized) (Medline Reference) strep a (in house) on null STREP A (IN (no code) [facility]) [facility] (08153) STREP A (IN 2019-01-12 (no code) [facility]) [facility] (05325) not yet categorized on null Control Negative (no code) [facility] (56056) Exp date 2021-03-02 (no code) [facility] (48869) Lot # [id number] (no code) [facility] (09693) other on 2018-09-04 Exp date Negative (no code) [facility] (17574) venous blood hemoglobin measurement (mass/volume) on 2018-05-22 Hemoglobin mass 13.8 g/dL (no code) 12.1 - 17.2 g/dL [facility] conc (Bld) [facility] (54533) serum or plasma urea nitrogen/creatin ine mass ratio on 2018-05-22 Urea 17 mg/mg (no code) 6 - 22 mg/mg [facility] a nitrogen/Creatin [facility] ine mass ratio (78434) serum or plasma urea nitrogen measurement (mass/volume) on 2018-05-22 Urea nitrogen 12 mg/dL (no code) 7 - 20 mg/dL [facility] mass [facility] (47122) serum or plasma troponin i.cardiac measurement (mass/volume) on 2018-05-22 Troponin no information (no code) [facility] I.cardiac mass [facility] (12220) serum or plasma total bilirubin measurement (mass/volume) on 2018-05-22 Bilirubin mass 0.3 mg/dL (no code) 0.1 - 1.2 mg/dL [facility] (51888) serum or plasma sodium measurement (moles/volume) on 2018-05-22 Sodium molar 141 mmol/L (no code) 135 - 145 mmol/L [facility] (85310) serum or plasma protein measurement (mass/volume) on 2018-05-22 Protein mass 7.8 g/dL (no code) 6.4 - 8.3 g/dL [facility] (08893) serum or plasma potassium measurement (moles/volume) on 2018-05-22 Potassium molar 4.2 mmol/L (no code) 3.7 - 5.2 mmol/L [facility] (61311) serum or plasma glucose measurement (mass/volume) on 2018-05-22 Glucose mass 104 mg/dL (no code) 60 - 125 mg/dL [facility] (27218) serum or plasma creatinine measurement with calculation of estimated glomerular filtration rate on 2018-05-22 GFR/1.73 sq M no information (no code) [facility] predicted among [facility] non-blacks MDRD (80788) vol rate/area (S/P/Bld) serum or plasma creatinine measurement (mass/volume) on 2018-05-22 Creatinine mass 0.72 mg/dL (no code) [facility] (42358) serum or plasma chloride measurement (moles/volume) on 2018-05-22 Chloride molar 105 mmol/L (no code) 95 - 106 mmol/L [facility] (69180) serum or plasma calcium measurement (mass/volume) on 2018-05-22 Calcium mass 9.6 mg/dL (no code) 8.5 - 10.2 mg/dL [facility] (11023) serum or plasma aspartate aminotransferase measurement (enzymatic activity/volume) on 2018-05-22 AST enzyme 34 U/L (no code) 10 - 34 U/L [facility] (41038) serum or plasma anion gap determination (moles/volume) on 2018-05-22 Anion gap 3 12 mmol/L (no code) 3 - 11 mmol/L [facility] molar [facility] (03934) serum or plasma amylase measurement (enzymatic activity/volume) on 2018-05-22 Amylase enzyme 51 U/L (no code) 40 - 140 U/L [facility] (39825) serum or plasma alkaline phosphatase measurement (enzymatic activity/volume) on 2018-05-22 ALP enzyme 120 U/L (no code) 44 - 147 U/L [facility] (36469) serum or plasma albumin measurement (mass/volume) on 2018-05-22 Albumin mass 4.2 g/dL (no code) 3.4 - 5.4 g/dL [facility] (12044) serum or plasma alanine aminotransferase measurement (enzymatic activity/volume) on 2018-05-22 ALT enzyme 54 U/L (no code) 4 - 40 U/L [facility] (07639) prothrombin time (pt) in platelet poor plasma by coagulation assay on 2018-05-22 Prothrombin time 13.1 s (no code) 9.4 - 12.5 s [facility] (PT) Coag time [facility] (PPP) (76274) myoglobin, serum on 2018-05-22 Myoglobin mass 26.1 ng/mL (no code) [facility] (73447) magnesium on 2018-05-22 Magnesium mass 2.3 mg/dL (no code) 1.7 - 2.2 mg/dL [facility] (15595) lipase on 2018-05-22 Lipase enzyme 15 U/L (no code) 10 - 73 U/L [facility] act/vol [facility] (36290) inr in platelet poor plasma or blood by coagulation assay on 2018-05-22 INR Coag RelTime 1.0 (no code) [facility] (Platelet poor [facility] plasma or blood) (53653) carbon dioxide on 2018-05-22 CO2 molar conc 24 mmol/L (no code) 23 - 29 mmol/L [facility] (35455) calcium measurement corrected for albumin on 2018-05-22 Albumin mass 9.4 g/dL (no code) 3.4 - 5.4 g/dL [facility] conc [facility] (69960) bnp level on 2018-05-22 Natriuretic 16.5 pg/mL (no code) 0 - 100 pg/mL [facility] peptide B mass [facility] conc (Bld) (41711) blood neutrophils automated count (number/volume) on 2018-05-22 Neutrophils Auto 4.4 10*3/uL (no code) 1.7 - 7 10*3/uL [facility] Via #/vol (Bld) [facility] (96746) blood monocytes/100 leukocytes on 2018-05-22 Monocytes/100 9 % (no code) 2 - 8 % [facility] a WBC Auto (Bld) [facility] (34048) blood monocytes automated count (number/volume) on 2018-05-22 Monocytes Auto 0.7 10*3/uL (no code) 0.3 - 0.9 [facility] #/vol (Bld) 10*3/uL [facility] (46851) blood lymphocytes automated count (number/volume) on 2018-05-22 Lymphocytes Auto 2.0 10*3/uL (no code) 0.9 - 2.9 [facility] #/vol (Bld) 10*3/uL [facility] (33497) blood leukocytes automated count (number/volume) on 2018-05-22 WBC Auto #/vol 7.3 10*3/uL (no code) 3.5 - 10.5 [facility] (Bld) 10*3/uL [facility] (80245) blood hematocrit (volume fraction) on 2018-05-22 Hematocrit Auto 42 % (no code) 36.1 - 50.3 % [facility] Volume Fraction [facility] (Bld) (81902) blood erythrocytes automated count (number/volume) on 2018-05-22 RBC Auto #/vol 4.60 10*6/uL (no code) 4.2 - 6.1 [facility] (Bld) 10*6/uL [facility] (73488) automated erythrocyte mean corpuscular volume on 2018-05-22 MCV Auto Entitic 91 fL (no code) 80 - 100 fL [facility] volume (RBC) [facility] (03684) automated erythrocyte mean corpuscular hemoglobin concentration measurement (mass/volume) on 2018-05-22 MCHC Auto mass 33 g/dL (no code) 32 - 36 g/dL [facility] conc (RBC) [facility] (89209) automated erythrocyte mean corpuscular hemoglobin (mass per erythrocyte) on 2018-05-22 MCH Auto Entitic 30 pg (no code) 27 - 31 pg [facility] mass (RBC) [facility] (32611) automated erythrocyte distribution width ratio on 2018-05-22 Erythrocyte 13.8 % (no code) 11.6 - 14.6 % [facility] distribution [facility] width Auto Ratio (77521) (RBC) automated eosinophil count on 2018-05-22 Eosinophils Auto 0.2 10*3/uL (no code) 0.05 - 0.5 [facility] #/vol (Bld) 10*3/uL [facility] (00092) automated blood platelet mean volume measurement on 2018-05-22 Platelet mean 9.7 fL (no code) 7.2 - 11.7 fL [facility] volume Auto [facility] Entitic volume (53663) (Bld) automated blood platelet count (count/volume) on 2018-05-22 Platelets Auto 318 10*3/uL (no code) 150 - 450 [facility] #/vol (Bld) 10*3/uL [facility] (75899) automated blood neutrophils/100 leukocytes on 2018-05-22 Neutrophils/100 60 % (no code) 40 - 60 % [facility] WBC Auto (Bld) [facility] (50693) automated blood lymphocytes/100 leukocytes on 2018-05-22 Lymphocytes/100 27 % (no code) 20 - 40 % [facility] WBC Auto (Bld) [facility] (18162) automated blood eosinophils/100 leukocytes on 2018-05-22 Eosinophils/100 3 % (no code) 1 - 4 % [facility] WBC Auto (Bld) [facility] (32556) automated blood basophils/100 leukocytes on 2018-05-22 Basophils/100 0 % (no code) 0.5 - 1 % [facility] WBC Auto (d) [facility] (79362) automated blood basophil count (count/volume) on 2018-05-22 Basophils Auto 0.0 10*3/uL (no code) 0 - 0.3 10*3/uL [facility] #/vol (d) [facility] (37133) activated partial thromboplastin time (aptt) in platelet poor plasma bycoagulation assay on 2018-05-22 aPTT Coag time 28 s (no code) 25 - 35 s [facility] (d) [facility] (12560) Vital Signs Vital Sign Value Interpretation Reference Date Time Care Prov ider Facility (Normalized) (Normalized) Range BMI (Body Mass 64.26 kg/m2 (no code) 15 - 25 kg/m2 05-12-2018 Miguel SPICER Community Index) 17:00-0500 9[address]54 [facility] (34871) BMI (Body Mass 63.9 kg/m2 (no code) 15 - 25 kg/m2 05-11-2018 MATT DOWLING Community Index) 09:30-0500 62332 [facility] (32767) BMI (Body Mass 64.34 kg/m2 (no code) 15 - 25 kg/m2 04-12-2018 MERA PATEL Community Index) 11:50-0400 TORSTEN [address]3708 [facility] (50042) Body height 149.86 cm (no code) cm 09-04-2018 [facility] 10:20-0400 36318 (Other Health Center Phone: of [facility] (48027) Body height 149.86 cm (no code) cm 10-29-2013 Doctor Co mmunity 15:44-0400 Migration [facility] (27567) Body height 149.86 cm (no code) cm 12-07-2012 DELIO JAFFE Community 19:31-0400 78009 (Other Health Center Phone: of [facility] ) [place] (58676) Body mass 66.32 kg/m2 (no code) 15 - 25 kg/m2 09-04-2018 [facility] Community index (BMI) 10:20-0400 28544 (Other Health Center [Ratio] Phone: of [facility] ) [place] (41820) Body 97.8 [degF] (no code) 97.8 - 99.0 09-04-2018 [facility] Community temperature [degF] 10:200400 41421 (Other Health Cent er Phone: of [facility] ) [place] (36083) Body 98.3 [degF] (no code) 97.8 - 99.0 05-12-2018 DELIO MAZARIEGOS [facility] Community Temperature [degF] 17:00-0500 10155 Health Cent[facility] of [facility] (26718) Body 97.5 [degF] (no code) 97.8 - 99.0 05-11-2018 [facility] Community Temperature [degF] 09:30-0500 74485 Health Cente r [facility] (29728) Body 98.2 [degF] (no code) 97.8 - 99.0 04-12-2018 [facility] Community Temperature [degF] 11:50-0400 OSAGE 32[address] [facility]ter of [facility] (39721) Body 98 [degF] (no code) 97.8 - 99.0 08-14-2014 YARA Co mmunity Temperature [degF] 11:13-0500 [facility] Cent[facility] r [address] [facility] (22616) Body 97.9 [degF] (no code) 97.8 - 99.0 10-29-2013 Doctor Community temperature [degF] 15:44-0400 [facility] [place] [facility] of [facility] (97399) Body 99.8 [degF] (no code) 97.8 - 99.0 12-07-2012 DELIO TRENT Community temperature [degF] 19:31-0400 00947 (Other Health Cent er Phone: of [facility] ) [place] (72284) Body weight 148.96 kg (no code) kg 09-04-2018 [facility] 10:79-5620 10388 (Other Health Center Phone: of [facility] ) [place] (07110) Body weight 141.07 kg (no code) kg 08-14-2014 YARA Co mmunity 11:130500 [address] ([address]363) Body weight 135.94 kg (no code) kg 10-29-2013 Doctor Co mmunity 15:440400 [facility] (76852) Body weight 128.54 kg (no code) kg 12-07-2012 DELIO LD [facility] 19:27-7079 80160 (Other Health Center Phone: of [facility] ) [place] (14591) Height 149.86 cm (no code) cm 05-12-2018 DELIO SPICER [facility] 17:000500 [address] [place] [address] (99302) Height 149.86 cm (no code) cm 05-11-2018 JAIMA DOWLING C ommunity 09:300500 [address] [place] [address] (61464) Height 149.86 cm (no code) cm 04-12-2018 NATALEE Comm unity 11:50-[address] (79215) Height 149.86 cm (no code) cm 08-14-2014 YARA Commu nity 11:130500 [address] (50889) Weight 144.34 kg (no code) kg 05-12-2018 DELIO [facility] 17:00-[address] [place] [address] (90245) Weight 143.52 kg (no code) kg 05-11-2018 JAIMA DOWLING C ommunity 09:30-[address] [place] [address] (42889) Weight 144.52 kg (no code) kg 04-12-2018 NATALEE Comm unity 11:50-0400 SARMIENTO [address] [facility] (88919) Interventions No Information Plan of Treatment Normalized Care Care Detail Care Activity Date Care Provider F acility Activity (CHM) Chronic Health [facility] [facility] 05-12-2018 [place] [facility] [id number] [facility] ([id number]) (D-PAIN/JESU) [facility] 05-19-2018 [place] D[place] [id number] [facility] ([id number]) Goals No Information Social History No Information Functional Status The data below is from unstructured sourcesNo functional status results.No functional status results.No functional status results.No functional status information available.No functional status information available.No functional status information available.No functional status inf ormation available.No functional status information available.No functional stat us information available. Mental Status No Information Encounters Encounter Normalized Encounter Encounter Diagnosis Care Provi mayte Organization Date Type 11-02-2018 (ACUTE) Acute Visit Strain of muscle and TEO MARIAM DEGROOT (no [facility] - tendon of unspecified phone) (no phon e) 11-02-2018 wall of thorax, - initial encounter 11-02-2018 10-20-2018 (D-PAIN/JESU) Pain/JESU Encounter for dental SHALONDA GAYLE (no [facility] - examination and phone) DENTAL (no azra ne) 10-20-2018 cleaning without - abnormal findings 10-20-2018 03-26-2019 [facility] Sciatica, unspecified KAUSHIK ANTONIO RNOT (no [facility]ARE side phone) CARE (no phone) 08-25-2019 [facility] Eden CHAU (no [facility] phone) (no phone) 10-31-2018 Emergency department no information DILLON HOANG no organization name - patient visit Work Phone: 10-31-2018 09-07-2018 Emergency department no information KAUSHIK CAMPBELL ( no no organization name - patient visit phone) 09-07-2018 05-22-2018 Emergency department no information BILL Flynn APRN BA JASON no organization name - patient visit Work Phone: 05-22-2018 05-21-2014 Emergency department no information no name no organization name - patient visit 05-21-2014 09-18-2013 Emergency department no information no name no organization name - patient visit 09-18-2013 09-17-2017 Patient encounter no information no name no or ganization name 08-31-2017 Patient encounter no information no name no or ganization name NEGATED Patient encounter no information no name no or ganization name 08-25-2019 Patient encounter no information DELIO SPICER ( no [facility] procedure phone) [facility] (no phone) 03-26-2019 Patient encounter no information no name no or ganization name procedure 03-26-2019 Patient encounter no information no name no or ganization name procedure 11-02-2018 Patient encounter no information no name no or ganization name procedure 10-31-2018 Patient encounter no information no name no or ganization name procedure 10-20-2018 Patient encounter no information no name no or ganization name procedure 09-07-2018 Patient encounter no information no name no or ganization name procedure 09-04-2018 Patient encounter no information no name no or ganization name procedure 08-17-2018 Patient encounter no information no name no or ganization name procedure 05-22-2018 Patient encounter no information no name no or ganization name procedure 05-19-2018 Patient encounter no information no name no or ganization name procedure 05-11-2018 Patient encounter no information no name no or ganization name procedure Medical Equipment No Information Payers No Information History general Narrative - Reported Note Type Note Facility History general Narrative - Reported Type Medical hypertension History Surgical cholecystectomy 2000 History Surgical section 2003 History Hospitaliz Surgery only ation History Hospitaliz MRSA ation History [facility] ([id number]) Summary Purpose eClinicalWorks Submission Advance Directives Directive Response Recor ded Date/Time Advance Directives No 9:40pm Resuscitation Status Full Code 12/14/15 9:40pm Directive Response Recor ded Date/Time Advance Directives No 7:04pm Resuscitation Status Full Code 05/21/14 7:04pm Directive Response Recor ded Date/Time Advance Directives No 9:40pm Directive Response Recor ded Date/Time Advance Directives No 9:53pm Resuscitation Status Full Code 09/07/18 9:53pm Directive Response Recor ded Date/Time Advance Directives Yes 0 10/30/18 11:47pm Resuscitation Status Full Code 10/30/18 11:47pm Discharge Instructions No hospital discharge instructions.No hospital discharge instructions.No hospital discharge instruction information available.No hospital discharge instruction information available.No hospital discharge instruction information available. Chief Complaint and Reason for Visit Chief Complaint Chest Pain Reason for Visit [id number] Chest wall pain Chief Complaint General Problems/Zenaida n Reason for Visit Sciatic nerve pain Chief Complaint Chest Wall Reason for Visit Chest wall pain Additional Source Comments This clinical document has been generated using [employer] software that has been certified by the Office of the National Coordinator for Health Information Technology (ONC 15.99.04.3023.Diam.31.00.0.124692) and the National Committee for Animal Cruelty Investigation Supervisor (NCQA, as an eMeasure certified technology). FOR RECORDS PERTAINING TO PATIENTS WHO ARE OR HAVE BEEN ENROLLED IN A CHEMICAL D EPENDENCY/SUBSTANCE ABUSE PROGRAM, SOME INFORMATION MAY BE OMITTED. This clinica l summary was aggregated from multiple sources. Caution should be exercised in using it in the provision of clinical care. This summary normalizes information from multiple sources, and as a consequence, information in this document may ma terially change the coding, format and clinical context of patient data. In joe tion, data may be omitted in some cases. CLINICAL DECISIONS SHOULD BE BASED ON T HE PRIMARY CLINICAL RECORDS. [employer] provides no warranty or guara ntee of the accuracy or completeness of information in this document.The followi ng information is based on time limited clinical information UNRECOGNIZED CONTENT PROVIDED BELOW FOR UNRECOGNIZED SECTION MEDICAL (GENERAL) HISTORY Type Description Date Surgical History cholecystectomy 1999 Surgical History section 2002 Hospitalization History Surgery only Hospitalization History MRSA Type Description Date Medical History hypertension Surgical History cholecystectomy 1999 Surgical History section 2002 Hospitalization History Surgery only Hospitalization History MRSA UNRECOGNIZED CONTENT PROVIDED BELOW FOR UNRECOGNIZED SECTION REASON FOR VISIT dental pain all over for the past 3 weeks. ezra, reports she [facility]no one will give her an appt. just keep telling her to call back tomorrow for a possible cancellation. this is all according to the pt.tooth pain right upper started Wed JStrasserRNDental AssessmentHigh blood pre ssure check up CK HsiehRCEVW-DuyCLI-[id number]-[id number]-UzlDzjm throat started Yuval Phamore throat started Yuval Arrieta
--- OUTSIDE RECORDS SUMMARY | 2019-12-20 10:50 | XMS REPORT | Continuity of Care Document ---
Author Organization Unknown Address Unknown Phone Unavailable Allergies Active Description Code Type Severity Reaction Onset Reported/Identified Relationship to Patient Clinical Status Yes NKANo Known Allergies NKA Miscellaneous Allergy Unknown N/A 04/14/2007 Yes Bactrim Drug Allergy 06/05/2011 Yes Bactrim Drug Allergy N/A N/A 06/05/2011 Medications There is no data. Problems Date Dx Coded Attending Type Code Diagnosis Diagnosed By 05/14/1509 MILI CHOUDHURY DO Ot K21. 9 GASTRO-ESOPHAGEAL REFLUX DISEASE WITHOUT 05/14/1509 MILI CHOUDHURY DO Ot K92. 1 MELENA 05/14/1509 MILI CHOUDHURY DO Ot Z01.812 ENCOUNTER FOR PREPROCEDURAL LABORATORY E 05/14/1509 MILI CHOUDHURY DO Ot Z20.828 CONTACT W AND EXPOSURE TO OTH VIRAL COMM 04/07/2008 COREY VUONG APRN R 110.5 TINEA CORPORIS 04/07/2008 COREY VUONG APRN R 477.9 RHINITIS ALLERGIC 04/07/2008 110.5 MARILYN A CORPORIS 04/07/2008 477.9 RHIN ITIS ALLERGIC 04/07/2008 110.5 MARILYN A CORPORIS 04/07/2008 477.9 RHIN ITIS ALLERGIC 04/07/2008 TRINITY HENNESSY DOA K 110.5 TINEA CORPORIS 04/07/2008 TRINITY HENNESSY DOA K 477.9 RHINITIS ALLERGIC 04/07/2008 SARA YEN APRN R 110.5 TINEA CORPORIS 04/07/2008 SARA YEN APRN R 477.9 RHINITIS ALLERGIC 04/07/2008 TRINITY HENNESSY DOA K 110.5 TINEA CORPORIS 04/07/2008 GERHARD STERLING REG K 477.9 RHINITIS ALLERGIC 04/07/2008 JORGE SAAB PSYD 110.5 TINEA CORPORIS 04/07/2008 JORGE SAAB PSYD 477.9 RHINITIS ALLERGIC 04/07/2008 MADL DESIGN PRINTING MACHINE SET UP OPERATOR, RODRI L 110 .5 TINEA CORPORIS 04/07/2008 MADL DESIGN PRINTING MACHINE SET UP OPERATOR, RODRI L 477 .9 RHINITIS ALLERGIC 06/20/2008 ARPAN VUONG APRNRICIA R 041.19 STAPHYLOCOCCUS INFECTION IN CONDITIONS C LASSIFIED ELSEWHERE AND OF UNSPECIFIED SITE OTHER STAPHYLOCOCCUS 06/20/2008 YEVGENIY TIRADO COREY R 696.1 PSORIASIS 06/20/2008 YEVGENIY DESIGN PRINTING MACHINE SET UP OPERATOR, COREY R 724.3 SCIATICA 06/20/2008 041.19 STA PHYLOCOCCUS INFECTION IN CONDITIONS CLASSIFIED ELSEWHERE AND OF UNSPECIFIED SITE OTHER STAPHYLOCOCCUS 06/20/2008 696.1 PSOR IASIS 06/20/2008 724.3 SCIATICA 06/20/2008 041.19 STA PHYLOCOCCUS INFECTION IN CONDITIONS CLASSIFIED ELSEWHERE AND OF UNSPECIFIED SITE OTHER STAPHYLOCOCCUS 06/20/2008 696.1 PSOR IASIS 06/20/2008 724.3 SCIATICA 06/20/2008 HENNESSY DO REG K 041.19 STAPHYLOCOCCUS INFECTION IN CONDITIONS CLASSIFIED ELSEWHERE AND OF UNSPECIFIED SITE OTHER STAPHYLOCOCCUS 06/20/2008 GERHARD STERLING, REG K 696.1 PSORIASIS 06/20/2008 HENNESSY DO, REG K 724.3 SCIATICA 06/20/2008 FARSHAD DESIGN PRINTING MACHINE SET UP OPERATOR, SARA R 041.19 STAPHYLOCOCCUS INFECTION IN CONDITIONS C LASSIFIED ELSEWHERE AND OF UNSPECIFIED SITE OTHER STAPHYLOCOCCUS 06/20/2008 FARSHAD DESIGN PRINTING MACHINE SET UP OPERATOR, SARA R 696.1 PSORIASIS 06/20/2008 FARSHAD DESIGN PRINTING MACHINE SET UP OPERATOR, SARA R 724.3 SCIATICA 06/20/2008 HENNESSY , REG K 041.19 STAPHYLOCOCCUS INFECTION IN CONDITIONS CLASSIFIED ELSEWHERE AND OF UNSPECIFIED SITE OTHER STAPHYLOCOCCUS 06/20/2008 HENNESSY DO REG K 696.1 PSORIASIS 06/20/2008 HENNESSY DO, REG K 724.3 SCIATICA 06/20/2008 JORGE SAAB PSYD ANN L 041.19 STAPHYLOCOCCUS INFECTION IN CONDITIONS C LASSIFIED ELSEWHERE AND OF UNSPECIFIED SITE OTHER STAPHYLOCOCCUS 06/20/2008 JORGE SAAB PSYD ANN L 696.1 PSORIASIS 06/20/2008 JORGE SAAB PSYD ANN L 724.3 SCIATICA 06/20/2008 NATE HINDS APRNA L 041 .19 STAPHYLOCOCCUS INFECTION IN CONDITIONS CLASSIFIED ELSEWHERE AND OF UNSPECIFIED SITE OTHER STAPHYLOCOCCUS 06/20/2008 DAHLIA HINDS APRNWNYA L 696 .1 PSORIASIS 06/20/2008 GUZMAN TIRADO, RODRI L 724 .3 SCIATICA 01/24/2009 ALDO VUONG APRNIA R 626.6 nonmenstrual bleeding 01/24/2009 626.6 nonm enstrual bleeding 01/24/2009 626.6 nonm enstrual bleeding 01/24/2009 HENNESSY DO REG K 626.6 nonmenstrual bleeding 01/24/2009 FARSHAD TIRADO, SARA R 626.6 nonmenstrual bleeding 01/24/2009 HENNESSY DO, REG K 626.6 nonmenstrual bleeding 01/24/2009 JORGE SAAB PSYD L 626.6 nonmenstrual bleeding 01/24/2009 NYMichael DESIGN PRINTING MACHINE SET UP OPERATOR, RODRI L 626 .6 nonmenstrual bleeding 03/08/2010 ALDO VUONG APRNIA R 599.0 URINARY TRACT INFECTION, SITE NOT SPECIFIED 03/08/2010 599.0 URIN TABBY TRACT INFECTION, SITE NOT SPECIFIED 03/08/2010 599.0 URIN TABBY TRACT INFECTION, SITE NOT SPECIFIED 03/08/2010 HENNESSY DO, REG K 599.0 URINARY TRACT INFECTION, SITE NOT SPECIFIED 03/08/2010 FARSHAD TIRADO, SARA R 599.0 URINARY TRACT INFECTION, SITE NOT SPECIFIED 03/08/2010 HENNESSY DO, REG K 599.0 URINARY TRACT INFECTION, SITE NOT SPECIFIED 03/08/2010 JORGE SAAB PSYD L 599.0 URINARY TRACT INFECTION, SITE NOT SPECIFIED 03/08/2010 GUZMAN LOYOLANDAHLIARODRI L 599 .0 URINARY TRACT INFECTION, SITE NOT SPECIFIED 01/10/2011 Ot 599.0 URIN TRACT INFECTION NOS 01/10/2011 Ot 789.00 ABD OMINAL PAIN, UNSPECIFIED SITE 03/17/2011 Ot 285.9 ANEM IA NOS 03/17/2011 Ot 695.9 ERYT HEMATOUS COND NOS 03/17/2011 Ot 782.3 EDEMA 03/18/2011 ALDO VUONG APRNIA R 285.9 ANEMIA 03/18/2011 ALDO VUONG APRNIA R 782.3 EDEMA 03/18/2011 285.9 ANEMIA 03/18/2011 782.3 EDEMA 03/18/2011 285.9 ANEMIA 03/18/2011 782.3 EDEMA 03/18/2011 HENNESSY DO, REG K 285.9 ANEMIA 03/18/2011 HENNESSY DO, REG K 782.3 EDEMA 03/18/2011 FARSHAD DESIGN PRINTING MACHINE SET UP OPERATOR, SARA R 285.9 ANEMIA 03/18/2011 FARSHAD DESIGN PRINTING MACHINE SET UP OPERATOR, SARA R 782.3 EDEMA 03/18/2011 HENNESSY DO, REG K 285.9 ANEMIA 03/18/2011 HENNESSY DO, REG K 782.3 EDEMA 03/18/2011 JORGE SAAB PSYD ANN L 285.9 ANEMIA 03/18/2011 JORGE SAAB PSYD L 782.3 EDEMA 03/18/2011 MADL DESIGN PRINTING MACHINE SET UP OPERATOR, RODRI L 285 .9 ANEMIA 03/18/2011 MADL DESIGN PRINTING MACHINE SET UP OPERATOR, RODRI L 782 .3 EDEMA 03/22/2011 COREY VUONG APRN R 462 PHARYNGITIS ACUTE 03/22/2011 462 PHARYN GITIS ACUTE 03/22/2011 462 PHARYN GITIS ACUTE 03/22/2011 HENNESSY DO, REG K 462 PHARYNGITIS ACUTE 03/22/2011 FARSHAD DESIGN PRINTING MACHINE SET UP OPERATOR, SARA R 4 62 PHARYNGITIS ACUTE 03/22/2011 HENNESSY DO, REG K 462 PHARYNGITIS ACUTE 03/22/2011 JORGE SAAB PSYD L 462 PHARYNGITIS ACUTE 03/22/2011 MADL DESIGN PRINTING MACHINE SET UP OPERATOR, RODRI L 462 PHARYNGITIS ACUTE 06/05/2011 ALDO VUONG APRNIA R 041.86 H. PYLORI INFECTION 06/05/2011 ALDO VUONG APRNIA R 724.2 BACK PAIN, LOWER 06/05/2011 ALDO VUONG APRNIA R 787.03 VOMITING ALONE 06/05/2011 ALDO VUONG APRNIA R V18.0 FAM HX DIABETES MELLITUS 06/05/2011 041.86 H. PYLORI INFECTION 06/05/2011 724.2 BACK PAIN, LOWER 06/05/2011 787.03 VOM ITING ALONE 06/05/2011 V18.0 FAM HX DIABETES MELLITUS 06/05/2011 041.86 H. PYLORI INFECTION 06/05/2011 724.2 BACK PAIN, LOWER 06/05/2011 787.03 VOM ITING ALONE 06/05/2011 V18.0 FAM HX DIABETES MELLITUS 06/05/2011 GERHARD STERLING REG K 041.86 H. PYLORI INFECTION 06/05/2011 GERHARD STERLING, REG K 724.2 BACK PAIN, LOWER 06/05/2011 GERHARD STERLING, REG K 787.03 VOMITING ALONE 06/05/2011 GERHARD STERLING, REG K V18.0 FAM HX DIABETES MELLITUS 06/05/2011 FARSHAD TIRADO SARA R 041.86 H. PYLORI INFECTION 06/05/2011 FARSHAD DESIGN PRINTING MACHINE SET UP OPERATOR, SARA R 724.2 BACK PAIN, LOWER 06/05/2011 RANDOLPH YEN APRNINA R 787.03 VOMITING ALONE 06/05/2011 RANDOLPH YEN APRNINA R V18.0 FAM HX DIABETES MELLITUS 06/05/2011 GERHARD STERLING REG K 041.86 H. PYLORI INFECTION 06/05/2011 GERHARD STERLING, REG K 724.2 BACK PAIN, LOWER 06/05/2011 GERHARD STERLING, REG K 787.03 VOMITING ALONE 06/05/2011 GERHARD STERLING REG K V18.0 FAM HX DIABETES MELLITUS 06/05/2011 JORGE SAAB PSYD ANN L 041.86 H. PYLORI INFECTION 06/05/2011 JORGE SAAB PSYD ANN L 724.2 BACK PAIN, LOWER 06/05/2011 JORGE SAAB PSYD ANN L 787.03 VOMITING ALONE 06/05/2011 JORGE SAAB PSYD ANN L V18.0 FAM HX DIABETES MELLITUS 06/05/2011 NATE HINDS APRNA L 041 .86 H. PYLORI INFECTION 06/05/2011 CHUCKIE HINDS APRNNYA L 724 .2 BACK PAIN, LOWER 06/05/2011 GUZMAN TIRADO RODRI L 787 .03 VOMITING ALONE 06/05/2011 NATE HINDS APRNA L V18 .0 FAM HX DIABETES MELLITUS 03/26/2012 COREY VUONG APRN 271.3 GLUCOSE INTOLERANCE 03/26/2012 271.3 GLUC OSE INTOLERANCE 03/26/2012 271.3 GLUC OSE INTOLERANCE 03/26/2012 REG HENNESSY DO K 271.3 GLUCOSE INTOLERANCE 03/26/2012 SARA YEN APRN 271.3 GLUCOSE INTOLERANCE 03/26/2012 REG HENNESSY DO K 271.3 GLUCOSE INTOLERANCE 03/26/2012 JORGE SAAB PSYD L 271.3 GLUCOSE INTOLERANCE 03/26/2012 NYMichael LOYOLARODRI Weathers L 271 .3 GLUCOSE INTOLERANCE 08/23/2012 ARPAN VUONG APRNRICIA R 487.1 INFLUENZA 08/23/2012 VUONG DESIGN PRINTING MACHINE SET UP OPERATOR, COREY R 796.2 Blood Pressure Isolated Elevated 08/23/2012 487.1 INFL UENZA 08/23/2012 796.2 Bloo d Pressure Isolated Elevated 08/23/2012 487.1 INFL UENZA 08/23/2012 796.2 Bloo d Pressure Isolated Elevated 08/23/2012 REG HENNESSY DO K 487.1 INFLUENZA 08/23/2012 REG HENNESSY DO K 796.2 Blood Pressure Isolated Elevated 08/23/2012 FARSHAD TIRADO SARA R 487.1 INFLUENZA 08/23/2012 FARSHAD TIRADO SARA R 796.2 Blood Pressure Isolated Elevated 08/23/2012 REG HENNESSY DO K 487.1 INFLUENZA 08/23/2012 REG HENNESSY DO K 796.2 Blood Pressure Isolated Elevated 08/23/2012 JORGE SAAB PSYD L 487.1 INFLUENZA 08/23/2012 JORGE SAAB PSYD L 796.2 Blood Pressure Isolated Elevated 08/23/2012 GUZMAN DESIGN PRINTING MACHINE SET UP OPERATORRODRI Weathers L 487 .1 INFLUENZA 08/23/2012 RODRI HINDS APRN L 796 .2 Blood Pressure Isolated Elevated 12/07/2012 787.91 LINNEA RRHEA 12/07/2012 REG HENNESSY DO K 787.91 DIARRHEA 12/07/2012 FARSHAD TIRADO, SARA R 787.91 DIARRHEA 12/07/2012 TRINITY HENNESSY DOA K 787.91 DIARRHEA 12/07/2012 JORGE SAAB PSYD L 787.91 DIARRHEA 12/07/2012 RODRI HINDS APRN L 787 .91 DIARRHEA 09/18/2013 RAIN KOO MD Ot 844. 9 SPRAIN OF KNEE LEG NOS 09/18/2013 RAIN KOO MD Ot 959. 7 LOWER LEG INJURY NOS 09/18/2013 HAYES MD, RAIN A Ot E000 .8 OTHER EXTERNAL CAUSE STATUS 09/18/2013 RAIN KOO MD Ot E029 .9 OTHER ACTIVITY 09/18/2013 RAIN KOO MD Ot E849 .[address] NEC 09/18/2013 RAIN KOO MD Ot E927 .0 OVEREXERTION FROM SUDDEN STRENUOUS MOVEM 10/29/2013 HENNESSY DO, REG K 276.51 DEHYDRATION 10/29/2013 FARSHAD TIRADO, SARA R 276.51 DEHYDRATION 10/29/2013 HENNESSY DO, REG K 276.51 DEHYDRATION 10/29/2013 JORGE SAAB PSYD L 276.51 DEHYDRATION 10/29/2013 NATE HINDS APRNA L 276 .51 DEHYDRATION 02/01/2014 FARSHAD TIRADO SARA R 787.01 NAUSEA WITH VOMITING 02/01/2014 HENNESSY DO, REG K 787.01 NAUSEA WITH VOMITING 02/01/2014 JORGE SAAB PSYD L 787.01 NAUSEA WITH VOMITING 02/01/2014 RODRI HINDS APRN L 787 .01 NAUSEA WITH VOMITING 05/20/2014 HENNESSY DO, REG K 466.0 BRONCHITIS, ACUTE 05/20/2014 JORGE SAAB PSYD L 466.0 BRONCHITIS, ACUTE 05/20/2014 RODRI HINDS APRN L 466 .0 BRONCHITIS, ACUTE 05/21/2014 HAYES PRADO, RAIN Stout Ot 466. 0 ACUTE BRONCHITIS 05/21/2014 HAYES PRADO, RAIN Stout Ot 786. 09 RESPIRATORY ABNORM NEC 05/21/2014 RAIN KOO MD Ot V15. 82 HISTORY OF TOBACCO USE 2014 JORGE SAAB PSYD L 296.32 MO DEPRESSIVE RECURRENT MODERATE 2014 RODRI HINDS APRN L 296 .32 MO DEPRESSIVE RECURRENT MODERATE 08/14/2014 JORGE SAAB PSYD L 278.00 OBESITY 08/14/2014 JORGE SAAB PSYD L 373.11 STYE (HORDEOLUM EXTERNUM) 08/14/2014 JORGE SAAB PSYD L 401.1 HYPERTENSION, BENIGN ESSENTIAL 08/14/2014 NATE HINDS APRNA L 278 .00 OBESITY 08/14/2014 NATE HINDS APRNA L 373 .11 STYE (HORDEOLUM EXTERNUM) 08/14/2014 RODRI HINDS APRN L 401 .1 HYPERTENSION, BENIGN ESSENTIAL 09/29/2014 RODRI HINDS APRN L 692 .9 CONTACT DERMATITIS AND OTHER ECZEMA UNSPECIFIED CAUSE 09/29/2014 RODRI HINDS APRN L 790 .29 OTHER ABNORMAL GLUCOSE 12/15/2015 MONIKA DO JULIA K Ot E27.8 OTHER SPECIFIED DISORDERS OF ADRENAL GLA 12/15/2015 MONIKA DO, JULIA K Ot E66.01 MORBID (SEVERE) OBESITY DUE TO EXCESS CA 12/15/2015 MONIKA DO, JULIA K Ot F17.210 NICOTINE DEPENDENCE, CIGARETTES, UNCOMPL 12/15/2015 MONIKA DO, JULIA K Ot 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 OF INTEST, PART UNSP, W/O PERF O 12/15/2015 MONIKA DO, JULIA K Ot N39.0 URINARY TRACT INFECTION, SITE NOT SPECIF 12/19/2015 MONIKA DO, JULIA K Ot E27.8 OTHER SPECIFIED DISORDERS OF ADRENAL GLA 12/19/2015 MONIKA DO, JULIA K Ot E66.01 MORBID (SEVERE) OBESITY DUE TO EXCESS CA 12/19/2015 MONIKA DO, JULIA K Ot F17.210 NICOTINE DEPENDENCE, CIGARETTES, UNCOMPL 12/19/2015 MONIKA DO, JULIA K Ot 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 OF INTEST, PART UNSP, W/O PERF O 12/19/2015 MONIKA DO, JULIA K Ot N39.0 URINARY TRACT INFECTION, SITE NOT SPECIF 05/22/2018 BILL MONTENEGRO APRN Ot I10 ESSENTIAL (PRIMARY) HYPERTENSION 05/22/2018 BILL MONTENEGRO APRN Ot R07.81 PLEURODYNIA 05/22/2018 BILL MONTENEGRO APRN Ot R07.89 OTHER CHEST PAIN 05/22/2018 BILL MONTENEGRO APRN Ot W19.XXXA UNSPECIFIED FALL, INITIAL ENCOUNTER 05/22/2018 BILL MONTENEGRO APRN Ot Z79.51 ACCREDITATION COORDINATOR (CURRENT) USE OF INHALED STERO 05/22/2018 BILL MONTENEGRO APRN Ot Z79.52 SKILLED NURSING (CURRENT) USE OF SYSTEMIC STER 05/22/2018 BILL MONTENEGRO APRN Ot Z87.448 PERSONAL HISTORY OF OTHER DISEASES OF UR 05/22/2018 BILL MONTENEGRO APRN Ot Z97 .5 PRESENCE OF (INTRAUTERINE) CONTRACEPTIVE 05/22/2018 BILL MONTENEGRO APRN Ot Z98.890 OTHER SPECIFIED POSTPROCEDURAL STATES 05/25/2018 BILL MOTNENEGRO APRN Ot I10 ESSENTIAL (PRIMARY) HYPERTENSION 05/25/2018 BILL MONTENEGRO APRN Ot R07.81 PLEURODYNIA 05/25/2018 BILL MONTENEGRO APRN Ot R07.89 OTHER CHEST PAIN 05/25/2018 BILL MONTENEGRO APRN Ot W19.XXXA UNSPECIFIED FALL, INITIAL ENCOUNTER 05/25/2018 BILL MONTENEGRO APRN Ot Z79.51 SKILLED NURSING (CURRENT) USE OF INHALED STERO 05/25/2018 BILL MONTENEGRO APRN Ot Z79.52 ACCREDITATION COORDINATOR (CURRENT) USE OF SYSTEMIC STER 05/25/2018 BILL MONTENEGRO APRN Ot Z87.448 PERSONAL HISTORY OF OTHER DISEASES OF UR 05/25/2018 BILL MONTENEGRO APRN Ot Z97 .5 PRESENCE OF (INTRAUTERINE) CONTRACEPTIVE 05/25/2018 BILL MONTENEGRO APRN Ot Z98.890 OTHER SPECIFIED POSTPROCEDURAL STATES 09/09/2018 KAUSHIK CAMPBELL Ot E66.01 MORBID (SEVERE) OBESITY DUE TO EXCESS CA 09/09/2018 KAUSHIK CAMPBELL Ot I10 ESSENTIAL (PRIMARY) HYPERTENSION 09/09/2018 KAUSHIK CAMPBELL Ot M54.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, RIGHT SIDE 09/09/2018 KAUSHIK CAMPBELL Ot Z68.44 BODY MASS INDEX (BMI) 60.0-69.9, ADULT 09/09/2018 KAUSHIK CAMPBELL Ot Z79.51 SKILLED NURSING (CURRENT) USE OF INHALED STERO 09/09/2018 KAUSHIK CAMPBELL Ot Z79.52 SKILLED NURSING (CURRENT) USE OF SYSTEMIC STER 09/09/2018 KAUSHIK CAMPBELL Ot Z87.448 PERSONAL HISTORY OF OTHER DISEASES OF UR 09/09/2018 KAUSHIK CAMPBELL Ot Z97.5 PRESENCE OF (INTRAUTERINE) CONTRACEPTIVE 09/09/2018 KAUSHIK CAMPBELL Ot Z98.890 OTHER SPECIFIED POSTPROCEDURAL STATES 10/31/2018 VALENTE PRADO, DILLON Nix Ot E66.01 MORBID (SEVERE) OBESITY DUE TO EXCESS CA 10/31/2018 DILLON VICTOR MD, Ot I10 ESSENTIAL (PRIMARY) HYPERTENSION 10/31/2018 DILLON VICTOR MD Ot R07.89 OTHER CHEST PAIN 10/31/2018 DILLON VICTOR MD, Ot Z87.891 PERSONAL HISTORY OF NICOTINE DEPENDENCE 11/01/2018 DILLON VICTOR MD, Ot E66.01 MORBID (SEVERE) OBESITY DUE TO EXCESS CA 11/01/2018 DILLON VICTOR MD, Ot I10 ESSENTIAL (PRIMARY) HYPERTENSION 11/01/2018 DILLON VICTOR MD, Ot R07.89 OTHER CHEST PAIN 11/01/2018 DILLON VICTOR MD, Ot Z87.891 PERSONAL HISTORY OF NICOTINE DEPENDENCE Procedures Code Description [place] [address] INFL UENZA A & B (IN-HOUSE) 08/23/2012 19383 UA L SEBASTIAN DIP 11/12/2012 31601 CULT URE URINE 10/29/2013 45358 UA L SEBASTIAN DIP 10/29/2013 51598 PSYT X PT&/FAMILY 45 MINUTES 09/13/2014 09785 ROUT INE VENIPUNCTURE 09/29/2014 18093 A1C (IN-HOUSE) 09/29/2014 93397 CBC 09/29/2014 7074409 GF R CALC (RESULT ONLY) 09/29/2014 32812 CMP 09/29/2014 90340 TSH 09/29/2014 Results Test Result Range Complete blood count (CBC) with automate d white blood cell (WBC) differential - 05/22/18 13:27 Blood leukocytes automated count (number/volume) 7.3 10*3/uL 4.3-11.0 Blood erythrocytes automated count (number/volume) 4.60 10*6/uL 4.35-5.85 Venous blood hemoglobin measurement (mass/volume) 13.8 g/dL 11.5-16.0 Blood hematocrit (volume fraction) 42 % 35-52 Automated erythrocyte mean corpuscular volume 91 [ foz_us] 80-99 Automated erythrocyte mean corpuscular h emoglobin (mass per erythrocyte) 30 pg 25-34 Automated erythrocyte mean corpuscular h emoglobin concentration measurement (mass/volume) 33 g/dL 32-36 Automated erythrocyte distribution width ratio 13. 8 % 10.0- 14.5 Automated blood platelet count (count/volume) 318 10*3/uL 130-400 Automated blood platelet mean volume measurement 9.7 [foz_us] 7.4-10.4 Automated blood neutrophils/100 leukocytes 60 % 42-75 Automated blood lymphocytes/100 leukocytes 27 % 12-44 Blood monocytes/100 leukocytes 9 % 0-12 Automated blood eosinophils/100 leukocytes 3 % 0-10 Automated blood basophils/100 leukocytes 0 % 0-10 Blood neutrophils automated count (number/volume) 4.4 10*3 1.8-7.8 Blood lymphocytes automated count (number/volume) 2.0 10*3 1.0-4.0 Blood monocytes automated count (number/volume) 0. 7 10*3 0.0-1.0 Automated eosinophil count 0.2 10*3/uL 0 .0-0.3 Automated blood basophil count (count/volume) 0.0 10*3/uL 0.0-0.1 PT panel in platelet poor plasma by coag ulation assay - 05/22/18 13:27 Prothrombin time (PT) in platelet poor plasma by coagu lation assay 13.1 s 12.2-14.7 INR in platelet poor plasma or blood by coagulation as say 1.0 0.8-1.4 Activated partial thromboplastin time (a PTT) in platelet poor plasma bycoagulation assay - 05/22/18 13:27 Activated partial thromboplastin time (a PTT) in platelet poor plasma bycoagulation assay 28 s 24-35 Comprehensive metabolic panel - 05/22/18 13:27 Serum or plasma sodium measurement (moles/volume) 141 mmol/L 135-145 Serum or plasma potassium measurement (moles/volume) 4.2 mmol/L 3.6-5.0 Serum or plasma chloride measurement (moles/volume) 105 mmol/L 98-107 Carbon dioxide 24 mmol/L 21-32 Serum or plasma anion gap determination (moles/volume) 12 mmol/L 5-14 Serum or plasma urea nitrogen measurement (mass/volume ) 12 mg/dL 7-18 Serum or plasma creatinine measurement (mass/volume) 0.72 mg/dL 0.60-1.30 Serum or plasma urea nitrogen/creatinine mass ratio 17 NRG Serum or plasma creatinine measurement w ith calculation of estimated glomerular filtration rate > NRG Serum or plasma glucose measurement (mass/volume) 104 mg/dL 70-105 Serum or plasma calcium measurement (mass/volume) 9.6 mg/dL 8.5-10.1 Serum or plasma total bilirubin measurement (mass/volu me) 0.3 mg/dL 0.1-1.0 Serum or plasma alkaline phosphatase favian surement (enzymatic activity/volume) 120 U/L 40-136 Serum or plasma aspartate aminotransfera se measurement (enzymatic activity/volume) 34 U/L 5-34 Serum or plasma alanine aminotransferase measurement (enzymatic activity/volume) 54 U/L 0-55 Serum or plasma protein measurement (mass/volume) 7.8 g/dL 6.4-8.2 Serum or plasma albumin measurement (mass/volume) 4.2 g/dL 3.2-4.5 CALCIUM CORRECTED 9.4 mg/dL 8.5-10.1 Magnesium - 05/22/18 13:27 Magnesium 2.3 mg/dL 1.8-2.4 Serum or plasma troponin i.cardiac measu rement (mass/volume) - 05/22/18 13:27 Serum or plasma troponin i.cardiac measurement (mass/v olume) < ng/mL <0.30 Myoglobin, serum - 05/22/18 13:27 Myoglobin, serum 26.1 ng/mL 10.0-92.0 Serum or plasma amylase measurement (enz ymatic activity/volume) - 05/22/18 13:27 Serum or plasma amylase measurement (enzymatic activit y/volume) 51 U/L 25-125 Serum or plasma lithium measurement (mol es/volume) - 05/22/18 13:27 BNP level 16.5 pg/mL <100.0 Lipase - 05/22/18 13:27 Lipase 15 U/L 8-78 Coronavirus SARS-CoV-2 SO 2018 - 0 08:00 Coronavirus Ab [Units/volume] in Serum Negative Negative Encounters ACCT No. Visit Date/Time Discharge Status Pt. Type Provider Facility Loc./Unit Complaint [id number] 09/29/2014 08:32:00 09/29/2014 23:59: 59 CLS Outpatient RODRI HINDS APRN [id number] 09/13/2014 15:59:00 09/13/2014 23:59: 59 CLS Outpatient JORGE SAAB PSYD [id number] 05/20/2014 12:29:00 05/20/2014 23:59: 59 CLS Outpatient GERHARD STERLING REG [place] [id number] 02/01/2014 13:25:00 02/01/2014 23:59: 59 CLS Outpatient FARSHAD TIRADOSARA [id number] 10/29/2013 13:44:00 10/29/2013 23:59: 59 CLS Outpatient GERHARD STERLING REG [place] [id number] 08/23/2012 12:45:00 08/23/2012 23:59: 59 CLS Outpatient YEVGENIY TIRADOCOREY Darling [id number] 12/08/2012 15:39:00 Document Registration [id number] 11/12/2012 14:44:00 Document Registration [id number] 12/15/2019 05:52:00 020 15:10:00 DIS Outpatient MILI CHOUDHURY DO Via [facility] PREOP COLONOSCOPY/EGD [id number] 10/30/2018 23:38:00 019 01:45:00 DIS Emergency DILLON VICTOR MD [facility] ER BACK PAIN [id number] 09/07/2018 21:48:00 019 22:55:00 DIS Outpatient KAUSHIK CAMPBELL [facility] ER SIATIC NERVE PAIN [id number] 05/22/2018 13:15:00 018 14:38:00 DIS Emergency BILL MONTENEGRO APRN [facility] ER FALL/CP/BILAT ARM PAIN [id number] 12/14/2015 21:36:00 016 01:15:00 DIS Emergency JULIA FRANK DO [facility] ER ABDOMINAL PAIN;VOMITING [id number] 05/21/2014 19:01:00 014 19:47:00 DIS Emergency RAIN KOO MD [facility] ER DIFFICULTY BREATHING [id number] 09/17/2013 23:28:00 014 00:40:00 DIS Emergency RAIN KOO MD [facility] ER R KNEE INJ [id number] 12/20/2019 13:00:00 P CELIA Wileymit MILI CHOUDHURY DO [facility] ENDO BLOOD IN STOOL/GERD [id number] 03/17/2011 21:25:00 Document Registration [id number] 01/10/2011 16:04:00 Document Registration
--- NOTE | 2019-12-20 14:45 | OPERATIVE REPORT ---
DATE OF SERVICE: 12/20/2019 PREOPERATIVE DIAGNOSIS: Blood in stool and gastroesophageal reflux disease. POSTOPERATIVE DIAGNOSES: Hiatal hernia and diverticulosis. PROCEDURES PERFORMED: EGD with biopsies and colonoscopy. 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 ESTIMATED BLOOD LOSS: None. COMPLICATIONS: None. INDICATIONS FOR PROCEDURE: The patient is a 39-year-old female with blood in stool and GERD symptoms. She understands the risks and benefits of procedure and wished to proceed with the procedure. Consent was signed in the chart. DESCRIPTION OF PROCEDURE: The patient was taken to the endoscopy suite and placed in the left lateral recumbent position. Timeout was performed. Scope was inserted in the mouth, down the esophagus, stomach and into the duodenum without difficulty. There were no polyps, masses or ulcerations within the duodenum. Scope was then slowly retracted back into the stomach where it was further insufflated. No polyps, masses or ulcerations or erythematous changes. Biopsy of the antrum was obtained. Scope was retroflexed noting the hiatal hernia and no other pathology. Scope was returned to its normal position, slowly withdrawn to the distal esophagus, which biopsy was obtained. There were no polyps, masses or ulcerations or erythematous changes. Scope was then slowly retracted back until completely remove noting no other pathology. Digital rectal exam was performed noting some internal hemorrhoids. No palpable polyps, masses or ulcerations. Scope was inserted in the rectum and advanced all the way to cecum with minimal difficulty. Prep was adequate. Scope was then slowly retracted back. There were no polyps, masses or ulcerations within the cecum, ascending, transverse, descending colon. In the sigmoid colon, a moderate amount of diverticulosis was present. No polyps, masses or ulcerations. Scope was continuously retracted back to the rectum, where it was also retroflexed noting internal hemorrhoids. No other pathology. Scope was returned to its normal position, slowly withdrawn until completely removed. The patient tolerated the procedure well without any complications. She was taken to the recovery room in a stable condition. RECOMMENDATIONS: The patient will need repeat colonoscopy in 10 years unless family history of colon cancer, which would then be 5 years. Any issues before that be seen at that time. The patient will be recommended high fiber diet due to diverticulosis. The patient with hiatal hernia. She is currently on Protonix. Continue on current medications. We will consider adding Carafate if symptoms worsen and await biopsy results. Job ID: [id number] DocumentID: [id number] Dictated Date: 12/20/2019 10:45:30 Graphics Production Specialist Date: 12/20/2019 14:43:56 Dictated By: MILI MAYORGA DO
== END 2019-12-20 11:25 | disposition home or self-care (01) ==
LOC: ENDO 09:24
PROVIDERS: ATTEND Surgery
DX: K29.50 Unspecified chronic gastritis without bleeding (principal); K21.0 Gastro-esophageal reflux disease with esophagitis; K44.9 Diaphragmatic hernia without obstruction or gangrene; K57.30 Diverticulosis of large intestine without perforation or abscess without bleeding; G47.30 Sleep apnea, unspecified; I10 Essential (primary) hypertension; F17.210 Nicotine dependence, cigarettes, uncomplicated; G62.9 Polyneuropathy, unspecified; M54.9 Dorsalgia, unspecified; E66.01 Morbid (severe) obesity due to excess calories; Z68.44 Body mass index [BMI] 60.0-69.9, adult; Z91.013 Allergy to seafood; Z79.899 Other long term (current) drug therapy
CPT/HCPCS: 84703

== ENCOUNTER 2020-02-02 17:42 | Emergency (ER) | payer OTHER ==
[~2020-02-02] VITALS: Ht 152.4 cm; Wt 157.7 kg
[2020-02-02] MEDS ORDERED: HYDROcodone/APAP 7.5 MG/325 MG (LORTAB, LORCET PLUS) TABLET PO ONE (18:15)
--- NOTE | 2020-02-02 18:33 | Diagnostic Imaging Report ---
INDICATION: Dull left hip pain for three weeks. No known trauma. FINDINGS: Two views of the left hip demonstrate normal ossification. No fracture or dislocation is present. IMPRESSION: Normal left hip. Dictated by: Dictated on workstation # [id number]
[2020-02-02] MEDS ORDERED: PRD50T PO (18:50)
[2020-02-02] MEDS ORDERED: HYDR-3812 PO (18:50)
--- NOTE | 2020-02-02 18:50 | ED General ---
General Chief Complaint: General Problems/Pain Stated Complaint: L GROIN/HIP PAIN Nursing Triage Note: AMB TO ROOM WITH C/O BURNING IN L HIP ONSET 3 WEEKS AGO OTC PAIN MEDS HELPING ON THURSDAY WAS AT WORK PAIN INCREASED. DESCRIBES A BURNING PAIN. Nursing Sepsis Screen: No Definite Risk Source of Information: Patient Exam Limitations: No Limitations History of Present Illness Date Seen by Provider: Feb 02, 2020 Time Seen by Provider: 18:00 Initial Comments 39-year-old female who presents to emergency room with complaints of left hip pain for the past 3 weeks. She reports [id number] pain meds not helping. She reports history of lateral sciatica from time to time. She reports that 5 days ago she was at work when she twisted and had a worsening shooting pain from the left hip. Describes the pain as burning. Allergies and Home Medications Allergies Coded Allergies: NKANo Known Allergies (Verified Allergy, Unknown, 04/14/07) Home Medications Lisinopril 20 Mg Tablet, 20 MG PO DAILY, (Reported) Pantoprazole Sodium 20 Mg Tablet.dr, 20 MG PO DAILY, (Reported) Past Ahrjrjj-Zeywmj-Gnevix Hx Patient Social History Alcohol Use: Occasionally Uses Recreational Drug Use: No Smoking Status: Current Everyday Smoker Type Used: Cigarettes Former Smoker, Quit: Dec 13, 2016 2nd Hand Smoke Exposure: Yes Recent Foreign Travel: No Contact w/Someone Who Travel: No Recent Infectious Disease Expo: No Recent Hopitalizations: No Immunizations Up To Date Tetanus Booster (TDap): More than 5yrs Seasonal Allergies Seasonal Allergies: Yes Past Medical History Surgeries: Yes Section, Gallbladder Respiratory: No Cardiac: Yes Hypertension Neurological: No Reproductive Disorders: Yes (HX PID--USES IUD) Female Reproductive Disorders: Pelvic Inflammatory Dis STEP DOWN NURSE History: IUD Genitourinary: No Gastrointestinal: Yes (blood in stool) Gastroesophageal Reflux, Chronic Diarrhea Musculoskeletal: No Endocrine: Yes (MORBIDLY OBESE) HEENT: No Cancer: No Psychosocial: No Integumentary: No Blood Disorders: No Adverse Reaction/Blood Tranf: No Physical Exam Vital Signs Vital Signs - First Documented 02/02/20 17:46 Temp 37.0 Pulse 110 Resp 18 B/P (MAP) 137/95 (109) Pulse Ox 98 Capillary Refill : Less Than 3 Seconds Height, Weight, BMI Height: 5'0" Weight: 320lbs. oz. 145.239608qc; 67.00 BMI Method:Stated Progress/Results/Core Measures Suspected Sepsis Recent Fever Within 48 Hours: No Infection Criteria Present: None New/Unexplained Altered Menta: No Sepsis Screen: No Definite Risk SIRS Temperature: Pulse: 110 Respiratory Rate: 18 Blood Pressure 137 /95 Mean: 109 Results/Orders My Orders Orders - KAUSHIK CAMPBELL Hydrocodone/Apap 7.5/325 Tab (Lortab 7. (02/02/20 18:15) Hip, Left, 2 Views (02/02/20 18:08) Medications Given in ED Current Medications Medications Dose Ordered Sig/Conner Route Start Time Stop Time Status Last Admin Dose Admin Acetaminophen/ Hydrocodone Bitart 1 ea ONCE ONCE PO 02/02/20 18:15 02/02/20 18:16 DC 02/02/20 18:15 1 EA Vital Signs/I&O 02/02/20 17:46 Temp 37.0 Pulse 110 Resp 18 B/P (MAP) 137/95 (109) Pulse Ox 98 Capillary Refill : Less Than 3 Seconds Blood Pressure Mean: 109 Departure Impression Primary Impression: Sciatica of left side Disposition: 01 HOME, SELF-CARE Condition: Stable/Unchanged Departure-Patient Inst. Decision time for Depature: 18:48 Referrals: [facility] (PCP/Family) Primary Care Physician Patient Instructions: Sciatica (DC), Sciatica Exercises Add. Discharge Instructions: Take medications as directed. Follow-up with your primary care provider within 1 week for recheck. Return back to the emergency room for worsening symptoms or concerns as needed. All discharge instructions reviewed with patient and/or family. Voiced understanding. Scripts Hydrocodone/Acetaminophen (Hydrocodone-Acetamin 5-325 mg) 1 Each Tablet 1 EACH PO Q6H for 3 Days, #15 TAB Prov: KAUSHIK CAMPBELL 02/02/20 Prednisone (Prednisone) 50 Mg Tab 50 MG PO DAILY for 5 Days, #5 TAB Prov: KAUSHIK CAMPBELL 02/02/20 KAUSHIK CAMPBELL Feb 02, 2020 18:50
[2020-02-02 18:58] VITALS: BP 132/89
== END 2020-02-02 18:58 | disposition home or self-care (01) ==
LOC: EDUNIT# 17:42 → ER 17:45
DX: M54.32 Sciatica, left side (principal); K21.9 Gastro-esophageal reflux disease without esophagitis; I10 Essential (primary) hypertension; E66.01 Morbid (severe) obesity due to excess calories; F17.210 Nicotine dependence, cigarettes, uncomplicated; Z68.44 Body mass index [BMI] 60.0-69.9, adult
CPT/HCPCS: 73502

== ENCOUNTER 2021-04-12 01:00 | Inpatient (IN) | payer SELFPAY ==
[~2021-04-12] VITALS: Ht 152.4 cm; Wt 159.0 kg
[2021-04-12] VITALS (7 sets, daily range): BP systolic 116–146; BP diastolic 69–84
[~2021-04-12 01:00] MED LIST changes: -LISI-552 PO; +LISI20TA26 PO; +PANT20TA18 PO; -PANT20TA3 PO; +PRD50T PO
[2021-04-12] MEDS ORDERED: ACETAMINOPHEN 500 MG TAB (TYLENOL) PO STA (01:31)
[2021-04-12] MEDS ORDERED: LACTATED RINGERS 1,000 ML IV STA (01:31)
[2021-04-12 01:52] LABS: BASOPHILS % (AUTO) 0 % (0-10); EOSINOPHILS % (AUTO) 0 % (0-10); HEMATOCRIT 42 % (35-52); LYMPHOCYTES # (AUTO) 0.6 10^3/uL (1.0-4.0); LYMPHOCYTES % (AUTO) 4 % (12-44); MEAN CORPUSCULAR HEMOGLOBIN 31 pg (25-34); MEAN CORPUSCULAR HGB CONC 34 g/dL (32-36); MEAN CORPUSCULAR VOLUME 91 fL (80-99); MONOCYTES # (AUTO) 0.6 10^3/uL (0.0-1.0); MONOCYTES % (AUTO) 4 % (0-12); NEUTROPHILS # (AUTO) 12.6 10^3/uL (1.8-7.8); NEUTROPHILS % (AUTO) 91 % (42-75); PLATELET COUNT 228 10^3/uL (130-400); WHITE BLOOD COUNT 13.9 10^3/uL (4.3-11.0)
[2021-04-12 02:02] LABS: ALBUMIN 3.5 GM/DL (3.2-4.5)
[2021-04-12 02:03] LABS: CALCIUM 9.1 MG/DL (8.5-10.1)
[2021-04-12 02:04] LABS: TOTAL PROTEIN 7.6 GM/DL (6.4-8.2)
[2021-04-12 02:08] LABS: CREATININE SERUM 1.19 MG/DL (0.60-1.30)
[2021-04-12 02:09] LABS: FIBRIN DEGRADATION PRODUCTS 1.27 UG/ML (0.00-0.49); INR 1.1 (0.8-1.4)
[2021-04-12 02:10] LABS: BILIRUBIN,URINE NEGATIVE (NEGATIVE); CLARITY,URINE CLEAR; COLOR,URINE YELLOW; GLUCOSE, URINE (UA) 3+ (NEGATIVE); KETONES,URINE NEGATIVE (NEGATIVE); LEUKOCYTE ESTERASE ,URINE NEGATIVE (NEGATIVE); NITRITE,URINE NEGATIVE (NEGATIVE); PH,URINE 6.5 (5-9); PROTEIN,URINE 2+ (NEGATIVE)
[2021-04-12 02:21] LABS: BAND NEUTROPHILS 8 %; LYMPHOCYTES % (MANUAL) 1 %; MONOCYTES % (MANUAL) 4 %; NEUTROPHILS % (MANUAL) 87 %; RBC MORPH NORMAL
[2021-04-12 02:21] LABS: BACTERIA,URINE NEGATIVE /HPF
--- NOTE | 2021-04-12 03:49 | ED General ---
General Chief Complaint: COVID19 Suspect/Confirmed Stated Complaint: COUGH,SOB,FEVER, LOW O2 COVID+ Nursing Triage Note: CHILLS, BODYACHE, DIARRHEA STARTING 04/03/21, DX WITH COVID 04/07/21 C/O INCREASED SOA TONIGHT. Source of Information: Patient Exam Limitations: No Limitations History of Present Illness Date Seen by Provider: Apr 12, 2021 Time Seen by Provider: 01:31 Initial Comments Here with report of increasing shortness of breath and body aches with moderate diarrhea. Symptoms started on 04/03/2021 with Covid diagnosis on 04/07/2021. She was diagnosed at [facility]. She has not had monoclonal antibody therapy. She has been taking sebq-wpy-kclqunu vitamin therapy. She does admit to hypertension and diet-controlled diabetes. Does complain of runny nose as well. Oxygen saturations noted to be decreasing today with O2 sats in the upper 80s at home. She presented for further evaluation. Timing/Duration: Getting Worse, Other (10 days) Severity: Moderate Associated Systoms: Cough, Fever/Chills, Shortness of Air, Weakness Allergies and Home Medications Allergies Coded Allergies: RAMANAANo Known Allergies (Verified Allergy, Unknown, 04/14/07) Patient Home Medication List Home Medication List Reviewed: Yes Discontinued Medications Hydrocodone/Acetaminophen (Hydrocodone-Acetamin 5-325 mg) 1 Each Tablet, 1 EACH PO Q6H Discontinued Reason: No Longer Taking Prescribed by: KAUSHIK CAMPBELL on 02/02/201849 Last Action: Discontinued Lisinopril (Lisinopril) 20 Mg Tablet, 20 MG PO DAILY, (Reported) Discontinued Reason: No Longer Taking Entered as Reported by: MOISES NIX on 12/14/191438 Last Action: Discontinued Pantoprazole Sodium (Pantoprazole Sodium) 20 Mg Tablet.dr, 20 MG PO DAILY, (Reported) Discontinued Reason: No Longer Taking Entered as Reported by: MOISES NIX on 12/14/191438 Last Action: Discontinued Prednisone (Prednisone) 50 Mg Tab, 50 MG PO DAILY Discontinued Reason: No Longer Taking Prescribed by: KAUSHIK CAMPBELL on 02/02/201849 Last Action: Discontinued Review of Systems Review of Systems Constitutional: see HPI, fever, weakness EENTM: nose congestion, throat pain Respiratory: cough, short of breath Cardiovascular: no symptoms reported Gastrointestinal: No abdominal pain; diarrhea, nausea Genitourinary: no symptoms reported Musculoskeletal: joint pain, muscle pain Skin: no symptoms reported Psychiatric/Neurological: No Symptoms Reported All Other Systems Reviewed Negative Unless Noted: Yes Past Uyatckx-Hlaaqq-Iknshq Hx Patient Social History Tobacco Use?: No Substance use?: No Alcohol Use?: No Pt feels they are or have been: No Immunizations Up To Date Tetanus Booster (TDap): More than 5yrs Seasonal Allergies Seasonal Allergies: Yes Past Medical History Surgery/Hospitalization HX: NIDDM Surgeries: Yes Section, Gallbladder Respiratory: No Cardiac: Yes Hypertension Neurological: No Last Menstrual Period: Apr 09, 2021 Reproductive Disorders: Yes (HX PID--USES IUD) Female Reproductive Disorders: Pelvic Inflammatory Dis 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 oz. 145.834311nr; 68.00 BMI Method:Stated General Appearance: WD/WN, Mild Distress, Obese HEENT: PERRL/EOMI, Pharynx Normal Neck: Non Tender, Supple Respiratory: No Accessory Muscle Use, Crackles (Bilateral throughout), Respiratory Distress (Hypoxic and requiring 3 L via nasal cannula to keep sats greater than 92%) Cardiovascular: No Murmur, Tachycardia Gastrointestinal: Non Tender, Soft Back: Normal Inspection, No CVA Tenderness, No Vertebral Tenderness Extremity: Normal Range of Motion, Non Tender Neurologic/Psychiatric: Alert, Oriented x3 Skin: normal color, warm/dry Focused Exam Lactate Level 04/12/21 01:28: Lactic Acid Level 3.71*H Lactic Acid Level Laboratory Tests Test 04/12/21 01:28 Lactic Acid Level 3.71 MMOL/L (0.50-2.00) *H Progress/Results/Core Measures Suspected Sepsis SIRS Temperature: Pulse: 134 Respiratory Rate: 30 Laboratory Tests 04/12/21 01:28: White Blood Count 13.9H Blood Pressure 146 /84 Mean: 104 04/12/21 01:28: Lactic Acid Level 3.71*H Laboratory Tests 04/12/21 01:28: Creatinine 1.19, INR Comment 1.1, Platelet Count 228, Total Bilirubin 1.0 Results/Orders Lab Results Laboratory Tests Test 04/12/21 01:28 04/12/21 01:45 Range/Units White Blood Count 13.9 H 4.3-11.0 10^3/uL Red Blood Count 4.58 3.80-5.11 10^6/uL Hemoglobin 14.0 11.5-16.0 g/dL Hematocrit 42 35-52 % Mean Corpuscular Volume 91 80-99 fL Mean Corpuscular Hemoglobin 31 25-34 pg Mean Corpuscular Hemoglobin Concent 34 32-36 g/dL Red Cell Distribution Width 12.6 10.0-14.5 % Platelet Count 228 130-400 10^3/uL Mean Platelet Volume 10.0 9.0-12.2 fL Immature Granulocyte % (Auto) 1 % Neutrophils (%) (Auto) 91 H 42-75 % Lymphocytes (%) (Auto) 4 L 12-44 % Monocytes (%) (Auto) 4 0-12 % Eosinophils (%) (Auto) 0 0-10 % Basophils (%) (Auto) 0 0-10 % Neutrophils # (Auto) 12.6 H 1.8-7.8 10^3/uL Lymphocytes # (Auto) 0.6 L 1.0-4.0 10^3/uL Monocytes # (Auto) 0.6 0.0-1.0 10^3/uL Eosinophils # (Auto) 0.0 0.0-0.3 10^3/uL Basophils # (Auto) 0.0 0.0-0.1 10^3/uL Immature Granulocyte # (Auto) 0.1 0.0-0.1 10^3/uL Neutrophils % (Manual) 87 % Lymphocytes % (Manual) 1 % Monocytes % (Manual) 4 % Band Neutrophils 8 % Blood Morphology Comment NORMAL Prothrombin Time 15.0 H 12.2-14.7 SEC INR Comment 1.1 0.8-1.4 Activated Partial Thromboplast Time 33 24-35 SEC D-Dimer 1.27 H 0.00-0.49 UG/ML Sodium Level 129 L 135-145 MMOL/L Potassium Level 3.0 L 3.6-5.0 MMOL/L Chloride Level 94 L 98-107 MMOL/L Carbon Dioxide Level 18 L 21-32 MMOL/L Anion Gap 17 H 5-14 MMOL/L Blood Urea Nitrogen 8 7-18 MG/DL Creatinine 1.19 0.60-1.30 MG/DL Estimat Glomerular Filtration Rate 50 BUN/Creatinine Ratio 7 Glucose Level 494 *H 70-105 MG/DL Lactic Acid Level 3.71 *H 0.50-2.00 MMOL/L Calcium Level 9.1 8.5-10.1 MG/DL Corrected Calcium 9.5 8.5-10.1 MG/DL Total Bilirubin 1.0 0.1-1.0 MG/DL Aspartate Amino Transf (AST/SGOT) 74 H 5-34 U/L Alanine Aminotransferase (ALT/SGPT) 99 H 0-55 U/L Alkaline Phosphatase 100 40-136 U/L C-Reactive Protein High Sensitivity 31.84 H 0.00-0.50 MG/DL Total Protein 7.6 6.4-8.2 GM/DL Albumin 3.5 3.2-4.5 GM/DL Procalcitonin 1.54 H <0.10 NG/ML Urine Color YELLOW Urine Clarity CLEAR Urine pH 6.5 5-9 Urine Specific [place] 1.020 1.016-1.022 Urine Protein 2+ H NEGATIVE Urine Glucose (UA) 3+ H NEGATIVE Urine Ketones NEGATIVE NEGATIVE Urine Nitrite NEGATIVE NEGATIVE Urine Bilirubin NEGATIVE NEGATIVE Urine Urobilinogen 0.2 < = 1.0 MG/DL Urine Leukocyte Esterase NEGATIVE NEGATIVE Urine RBC (Auto) 3+ H NEGATIVE Urine RBC 2-5 H /HPF Urine WBC NONE /HPF Urine Squamous Epithelial Cells 2-5 /HPF Urine Crystals NONE /LPF Urine Bacteria NEGATIVE /HPF Urine Casts NONE /LPF Urine Mucus SMALL H /LPF Urine Culture Indicated CULTURE PENDING My Orders Orders - HOMERO HUGGINS MD Chest 1 View, Ap/Pa Only (04/12/21:31) Lactated Ringers (Lr 1000 Ml Iv Solution (04/12/21:31) Ed Iv/Invasive Line Start (04/12/21:31) Acetaminophen Tablet (Tylenol Tablet) (04/12/21:31) Cbc With Automated Diff (04/12/21:31) Comprehensive Metabolic Panel (04/12/21:31) Blood Culture (04/12/21:31) Sputum Culture (04/12/21:31) Urinalysis (04/12/21:) Urine Culture (04/12/21:31) Protime With Inr (04/12/21:) Partial Thromboplastin Time (04/12/21:31) Vital Signs Adult Sepsis Patie Q15M (04/12/21:31) O2 (04/12/21:31) Remove Rings In Anticipation O (04/12/21:) Lactic Acid Analyzer (04/12/21:) Hs C Reactive Protein (04/12/21:) Fibrin Degradation Products (04/12/21:) Procalcitonin (Pct) (04/12/21:) Manual Differential (04/12/21 01:28) Dexamethasone Injection (Decadron Inje (04/12/21 02:30) Medications Given in ED Current Medications Medications Dose Ordered Sig/Conner Route Start Time Stop Time Status Last Admin Dose Admin Dexamethasone Sodium Phosphate 6 mg ONCE ONCE IV 04/12/21 02:30 04/12/21 02:31 DC 04/12/21 03:28 6 MG Vital Signs/I&O 04/12/21 04/12/21 04/12/21 04/12/21 01:10 01:10 01:10 01:56 Temp 38.9 38.9 Pulse 134 Resp 30 B/P (MAP) 146/84 (104) Pulse Ox 91 93 O2 Delivery Nasal Cannula Nasal Cannula Room Air O2 Flow Rate 3.00 3.00 Capillary Refill : Blood Pressure Mean: 104 Progress Note : Progress Note Seen and evaluated. Sepsis protocol initiated. Patient has known positive Covid status from testing at [facility] on 04[facility]07[facility]. LR 1 L bolus. Tylenol 1 g p.o. ordered. Monitor patient. 0340: Patient has multilobar pneumonia and hypoxia. Decadron 10 mg IV ordered. Lactic acid is elevated and I believe this is related to Covid pneumonia and does not require antibiotics at this point. Lactic acid also likely elevated secondary to hypoxia which has improved with oxygen. We will continue IV fluid gently and admit for therapy related to COVID-19 pneumonia. She is also diabetic with uncontrolled blood sugars. Insulin protocol initiated. I did discuss the case with Dr. Blandon and she accepts patient for admission, inpatient status. Patient agrees to plan. Diagnostic Imaging Diagonstic Imaging: Xray Plain Films/CT/US/NM/MRI: chest Comments Multi lobar pneumonia bilateral Departure Communication (Admissions) Time/Spoke to Admitting Phy: 03:39 Impression Primary Impression: Pneumonia due to COVID-19 virus Additional Impression: Hypoxia Disposition: ADMITTED INPATIENT Condition: Stable Admissions Decision to Admit Reason: Admit from ER (General) Decision to Admit/Date: Apr 12, 2021 Time/Decision to Admit Time: 03:39 Departure-Patient Inst. Referrals: [facility] (PCP/Family) Primary Care Physician OHMERO HUGGINS MD Apr 12, 2021 03:49
[2021-04-12] MEDS ORDERED: ONDANSETRON 4 MG/2 ML (SDV) Z0FRAN IV PRN (04:30)
[2021-04-12] MEDS ORDERED: ACETAMINOPHEN 650 MG SUPP (TYLENOL) PR PRN (04:30)
[2021-04-12] MEDS ORDERED: ONDANSETRON 4 MG/5 ML ORAL SOLN (ZOFRAN) 5 ML PO PRN (04:30)
[2021-04-12] MEDS ORDERED: RT-ALBUTEROL HFA 8.5 GM INHALER IH PRN (04:30)
[2021-04-12] MEDS: LACTATED RINGERS 1,000 ML IV SCH ×2 (04:42→23:45)
[2021-04-12] MEDS: inSUlin ASPART (NovoLOG) 1 UNIT/0.01 ML (CHARGE PER UNIT) SC SCH ×4 (06:21→20:44)
--- NOTE | 2021-04-12 08:11 | Diagnostic Imaging Report ---
INDICATION: COVID positive, hypoxia. Frontal chest dated 0218 a.m. is compared to 10/31/2018. Heart is borderline in size. There is some central vascular congestion. There are extensive perihilar infiltrates compatible with pneumonia. The right perihilar infiltrate has a somewhat rounded appearance, follow-up is recommended to exclude underlying mass. There is no pneumothorax or pleural fluid collection. IMPRESSION: Extensive bilateral perihilar infiltrates compatible with pneumonia. The right perihilar infiltrate has a somewhat rounded appearance. While this is most likely secondary to "round" pneumonia, follow-up is recommended to exclude underlying mass. Report was faxed to [facility] by ramona at 8:10AM. Dictated by: Dictated on workstation # [id number]
[2021-04-12] MEDS: dexAMETHasone 6 MG TAB (DECADRON) PO SCH (10:06)
[2021-04-12] MEDS: ENOXAPARIN 60 MG/0.6 ML (LOVENOX) SYR SC SCH ×2 (10:06→20:45)
[2021-04-12] MEDS: ACETAMINOPHEN 325 MG TABLET PO PRN ×2 (10:14→20:45)
[2021-04-12] MEDS: guaiFENesin SYRUP 100 MG/5 ML 10 ML (ROBITUSSIN SF) PO PRN ×2 (10:19→20:44)
[2021-04-12] MEDS: RT-ALBUTEROL HFA 8.5 GM INHALER IH SCH ×3 (10:31→18:50)
[2021-04-12] MEDS: UMECLIDINIUM BROMIDE (INCRUSE ELLIPTA) 7'S IH SCH (10:31)
[2021-04-12] MEDS ORDERED: MULT-1136 PO (10:34)
[2021-04-12] MEDS ORDERED: ZINC50TA58 PO (10:34)
[2021-04-12] MEDS ORDERED: CHOL20002 PO (10:34)
[2021-04-12] MEDS ORDERED: ASCO-262 PO (10:34)
--- NOTE | 2021-04-12 12:34 | History & Physical ---
HPI History of Present Illness: 40 yo F that presented to ER with increasing shortness of breath after testing + for Covid on Thursday. She states that she started to feel bad last but then started to have fevers and went to get tested for COVID. Patient's son also has covid at this time. Denies any previous lung dz or oxygen requirement. Karlie alfaro states that she is a former smoker. She has not received her vaccine. Source: patient Date seen by provider: Apr 12, 2021 Time Seen by Provider: 11:45 Attending Physician Edward Blandon MD [place] [place] Consult Date of Admission Apr 12, 2021 at 03:40 Home Medications Home Medications Reviewed patient Home Medication Reconciliation performed by pharmacy medication reconciliations cable television technician and/or nursing. Patients Allergies have been reviewed. Allergies Coded Allergies: NKANo Known Allergies (Verified Allergy, Unknown, 04/14/07) IKC-Lyimgr-Azyqsl Hx Patient Social History Smoking Status: Former Smoker Former smoker/When Quit: Feb 13, 2014 2nd Hand Smoke Exposure: Yes Recent Hopitalizations: No Alcohol Use?: Yes Tobacco type used: Cigarettes Have you traveled recently?: No Immunizations Up To Date Tetanus Booster (TDap): More than 5yrs Past Medical History Former Smoker Obesity Family Medical History Significant Family History: No Pertinent Family Hx Review of Systems ([facility]) Constitutional: chills, fever, malaise EENTM: other (Decrease sense of taste) Respiratory: cough, dyspnea on exertion, short of breath Cardiovascular: no symptoms reported; No chest pain, No edema, No palpitations Gastrointestinal: No abdominal pain, No constipation; diarrhea, loss of appetite; No nausea, No vomiting Genitourinary: no symptoms reported; No dysuria, No frequency, No hematuria : No Musculoskeletal: no symptoms reported; No back pain, No joint pain, No muscle pain Skin: no symptoms reported; No lesions, No rash Psychiatric/Neurological: No Symptoms Reported Reviewed Test Results Reviewed Test Results Lab Laboratory Tests Test 04/12/21 01:28 04/12/21 01:45 04/12/21 03:56 04/12/21 06:18 Range/Units White Blood Count 13.9 H 4.3-11.0 10^3/uL Red Blood Count 4.58 3.80-5.11 10^6/uL Hemoglobin 14.0 11.5-16.0 g/dL Hematocrit 42 35-52 % Mean Corpuscular Volume 91 80-99 fL Mean Corpuscular Hemoglobin 31 25-34 pg Mean Corpuscular Hemoglobin Concent 34 32-36 g/dL Red Cell Distribution Width 12.6 10.0-14.5 % Platelet Count 228 130-400 10^3/uL Mean Platelet Volume 10.0 9.0-12.2 fL Immature Granulocyte % (Auto) 1 % Neutrophils (%) (Auto) 91 H 42-75 % Lymphocytes (%) (Auto) 4 L 12-44 % Monocytes (%) (Auto) 4 0-12 % Eosinophils (%) (Auto) 0 0-10 % Basophils (%) (Auto) 0 0-10 % Neutrophils # (Auto) 12.6 H 1.8-7.8 10^3/uL Lymphocytes # (Auto) 0.6 L 1.0-4.0 10^3/uL Monocytes # (Auto) 0.6 0.0-1.0 10^3/uL Eosinophils # (Auto) 0.0 0.0-0.3 10^3/uL Basophils # (Auto) 0.0 0.0-0.1 10^3/uL Immature Granulocyte # (Auto) 0.1 0.0-0.1 10^3/uL Neutrophils % (Manual) 87 % Lymphocytes % (Manual) 1 % Monocytes % (Manual) 4 % Band Neutrophils 8 % Blood Morphology Comment NORMAL Prothrombin Time 15.0 H 12.2-14.7 SEC INR Comment 1.1 0.8-1.4 Activated Partial Thromboplast Time 33 24-35 SEC D-Dimer 1.27 H 0.00-0.49 UG/ML Sodium Level 129 L 135-145 MMOL/L Potassium Level 3.0 L 3.6-5.0 MMOL/L Chloride Level 94 L 98-107 MMOL/L Carbon Dioxide Level 18 L 21-32 MMOL/L Anion Gap 17 H 5-14 MMOL/L Blood Urea Nitrogen 8 7-18 MG/DL Creatinine 1.19 0.60-1.30 MG/DL Estimat Glomerular Filtration Rate 50 BUN/Creatinine Ratio 7 Glucose Level 494 *H 70-105 MG/DL Lactic Acid Level 3.71 *H 1.71 0.50-2.00 MMOL/L Calcium Level 9.1 8.5-10.1 MG/DL Corrected Calcium 9.5 8.5-10.1 MG/DL Total Bilirubin 1.0 0.1-1.0 MG/DL Aspartate Amino Transf (AST/SGOT) 74 H 5-34 U/L Alanine Aminotransferase (ALT/SGPT) 99 H 0-55 U/L Alkaline Phosphatase 100 40-136 U/L C-Reactive Protein High Sensitivity 31.84 H 0.00-0.50 MG/DL Total Protein 7.6 6.4-8.2 GM/DL Albumin 3.5 3.2-4.5 GM/DL Procalcitonin 1.54 H <0.10 NG/ML Urine Color YELLOW Urine Clarity CLEAR Urine pH 6.5 5-9 Urine Specific [place] 1.020 1.016-1.022 Urine Protein 2+ H NEGATIVE Urine Glucose (UA) 3+ H NEGATIVE Urine Ketones NEGATIVE NEGATIVE Urine Nitrite NEGATIVE NEGATIVE Urine Bilirubin NEGATIVE NEGATIVE Urine Urobilinogen 0.2 < = 1.0 MG/DL Urine Leukocyte Esterase NEGATIVE NEGATIVE Urine RBC (Auto) 3+ H NEGATIVE Urine RBC 2-5 H /HPF Urine WBC NONE /HPF Urine Squamous Epithelial Cells 2-5 /HPF Urine Crystals NONE /LPF Urine Bacteria NEGATIVE /HPF Urine Casts NONE /LPF Urine Mucus SMALL H /LPF Urine Culture Indicated CULTURE PENDING Glucometer 396 H 70-110 MG/DL Physical Exam-(CHC) Physical Exam Vital Signs VS - Last 72 Hours, by Label 04/12/21 04/12/21 04/12/21 04/12/21 01:10 01:10 01:10 01:56 Temp 38.9 38.9 Pulse 134 Resp 30 B/P (MAP) 146/84 (104) Pulse Ox 91 93 O2 Delivery Nasal Cannula Nasal Cannula Room Air O2 Flow Rate 3.00 3.00 04/12/21 04/12/21 04/12/21 04/12/21 03:54 04:05 04:05 07:53 Temp 37.2 36.4 36.0 Pulse 113 119 115 Resp 20 24 22 B/P (MAP) 122/73 119/70 (86) 116/78 (91) Pulse Ox 94 92 92 91 O2 Delivery Nasal Cannula Nasal Cannula Nasal Cannula Nasal Cannula O2 Flow Rate 3.00 4.00 4.00 4.00 04/12/21 10:09 Temp 38.2 Pulse Ox 92 O2 Delivery Nasal Cannula O2 Flow Rate 4.00 Capillary Refill : General Appearance: WD/WN, obese Neck: non-tender, full range of motion, supple Respiratory: no respiratory distress, no accessory muscle use, crackles, wheezing Cardiovascular: normal peripheral pulses, regular rate, rhythm, no edema, no murmur Gastrointestinal: normal bowel sounds, non tender, soft Back: no CVA tenderness, no vertebral tenderness Extremities: normal range of motion, non-tender, no pedal edema, no calf tenderness, normal capillary refill Neurologic/Psychiatric: director of sports medicine II-XII nml as tested, no motor/sensory deficits, alert, normal mood/affect, oriented x 3 Skin: normal color, warm/dry Lymphatic: no adenopathy Assessment/Plan Assessment/Plan Admission Status: Inpatient Order (span 2 midnights) Reason for Inpatient Admission: Patient has risk factors for decompensation and needs close monitoring (1) Pneumonia due to COVID-19 virus Status: Acute Assessment & Plan: - 4L NC, MAT protocol, Steroids. discussed use of Actemera and patient would like to get medication under [facility] (2) Hypoxia Status: Acute (3) Hypercoagulable state associated with COVID-19 Status: Acute Assessment & Plan: - Lovenox (4) Elevated glucose Status: Acute Assessment & Plan: - A1c pending, likely has underlying DM (5) Elevated LFTs Status: Acute Assessment & Plan: - Continue to monitor, likely NIEVES (6) BMI 60.0-69.9, adult Status: Chronic EDWARD BLANDON MD Apr 12, 2021 12:34
[2021-04-12] MEDS ORDERED: NS IV NR (13:00)
[2021-04-12] MEDS ORDERED: TOCILIZUMAB IV NR (13:00)
[2021-04-12] MEDS: MICONAZOLE 2% POWDER (DESENEX AF) 90 GM TOP SCH (20:46)
[2021-04-13] VITALS (23 sets, daily range): BP systolic 73–169; BP diastolic 48–113
[2021-04-13] MEDS: guaiFENesin SYRUP 100 MG/5 ML 10 ML (ROBITUSSIN SF) PO PRN (04:20)
[2021-04-13] MEDS: inSUlin ASPART (NovoLOG) 1 UNIT/0.01 ML (CHARGE PER UNIT) SC SCH ×3 (06:25→16:44)
[2021-04-13] MEDS: RT-ALBUTEROL HFA 8.5 GM INHALER IH SCH ×5 (07:30→21:52)
[2021-04-13] MEDS: UMECLIDINIUM BROMIDE (INCRUSE ELLIPTA) 7'S IH SCH (07:30)
[2021-04-13] MEDS: MICONAZOLE 2% POWDER (DESENEX AF) 90 GM TOP SCH ×2 (08:46→20:36)
[2021-04-13] MEDS: dexAMETHasone 6 MG TAB (DECADRON) PO SCH (08:46)
[2021-04-13] MEDS: ENOXAPARIN 60 MG/0.6 ML (LOVENOX) SYR SC SCH ×2 (08:46→20:36)
[2021-04-13] MEDS ORDERED: ADENOSINE 6 MG/2 ML (ADENOCARD) VIAL IV ONE (09:04)
[2021-04-13] MEDS ORDERED: DIGOXIN 0.25 MG/ML (LANOXIN) 2 ML AMP ONE ×3 (09:08→09:36)
[2021-04-13] MEDS ORDERED: meTOprolol 5 MG/5 ML (LOPRESSOR) VIAL ONE (09:09)
[2021-04-13 09:26] LABS: ABG OXYGEN SATURATION 89 % (94-100); ABG PCO2 35 MMHG (35-45); ABG PH 7.43 (7.37-7.43); ABG PO2 58 MMHG (79-93); ABG TCO2 23.7 MMOL/L (21.0-31.0)
[2021-04-13 09:29] LABS: ALLENS TEST POSITIVE; INSPIRED O2 100% VAPOTERM; PATIENT TEMP 37.2; VENTILATOR NO
[2021-04-13] MEDS ORDERED: REMDESIVIR INJ 200 MG in NS (IVPB) 210 ML IV ONE (09:45)
--- NOTE | 2021-04-13 09:50 | Diagnostic Imaging Report ---
HISTORY: COVID positive, tachycardia, shortness of air. COMPARISON: 04/12/2021 TECHNIQUE: Frontal view of the chest. FINDINGS: There are multifocal airspace opacities throughout the lungs bilaterally, with dense consolidation in the right upper lobe. Overall aeration appears similar to the prior study. Defibrillator pads and multiple leads are noted over the chest. The cardiac silhouette is normal in size. There is no pleural effusion or pneumothorax. IMPRESSION: 1. Multifocal airspace opacities in the lungs bilaterally, consistent with infection, and stable since the prior exam. Dictated by: Dictated on workstation # [id number]
--- NOTE | 2021-04-13 09:51 | Tele-ICU Consult ---
History of Present Illness History of Present Illness Date Seen by Provider: Apr 13, 2021 Time Seen by Provider: 09:43 Date of Admission 04/12/21 History of Present Illness She is a 40-year-old female with past medical history of super morbid obesity with a BMI of 68.5 with a questionable diet controlled diabetes mellitus apparently diagnosed with positive Covid test on 04/07/2021 which she is getting treatment at home with [id number] medications. Yesterday she presented to the emergency room with a complaint of increasing shortness of breath body aches and diarrhea. She is found to be hypoxic and chest x-ray showed multilobar pneumonia suspicious for Covid pneumonia. She also has a mild lactic acidosis. She is admitted to medical floor and started on oxygen, IV dexamethasone and Actemra. This a.m. she has increasing shortness of breath and rapid pulse rate into the range of [id number] and transferred to the intensive care unit and I was asked to video visit the patient on a stat basis which I dated and found to have heart rate in the [id number] range. Immediately tried on IV adenosine 6 mg with which her heart rate transiently slowed down but went back to 180s after that we have given 12 mg of adenosine after which also she only transiently slowed down to 50s per minute and underlying rhythm suggestive of A. fib. She is given IV Lopressor 5 mg and digoxin x2 0.5 mg each time. Subsequently started on Cardizem drip with which are heart rate is in the 120s. At this time Cardizem is at 10 mg/h and will increase if needed to 20 mg/h. I have discussed the case with the PLASTER APPLICATOR. Available records chest x-ray reviewed. Physical examination per attending physician and PLASTER APPLICATOR. Allergies and Home Medications Allergies Coded Allergies: NKANo Known Allergies (Verified Allergy, Unknown, 04/14/07) Home Medications Ascorbate Calcium 500 Mg Tablet, 500 MG PO DAILY, (Reported) Cholecalciferol (Vitamin D3) 50 Mcg Capsule, 50 MCG PO DAILY, (Reported) Multivitamin 1 Each Tablet, 1 EACH PO DAILY, (Reported) Zinc 50 Mg Tablet, 50 MG PO DAILY, (Reported) Past Medical/Social/Family Hx Patient Social History Tobacco Use?: Yes Tobacco type used: Cigarettes Smoking Status: Former Smoker Smokeless Tobacco Frequency: Never a User E-Cig and/or Vaping Freq: Never a User Substance use?: No Alcohol Use?: Yes Alcohol Frequency: Rarely Pt stated abuse/neglect: Unable to obtain Immunizations Up To Date Influenza Vaccine Up-to-Date: No; Not Current Tetanus Booster (TDap): Unknown TB Skin Test: None Current Status status: No status: No Advance Directives: Unable to obtain Communicates: Verbally Primary Language: Armenian Preferred Spoken Language: Armenian Is interpretation needed?: No Sensory deficits: Vision impairment Implanted or Applied Medical D: None Past Medical History Former Smoker Obesity Review of Systems Constitutional: see HPI Other PER ATTENDING PHYSICIAN Sepsis Event Evaluation Height, Weight, BMI Height: 5'0" Weight: 320lbs. oz. 145.761586dj; 68.45 BMI Method:Stated Exam Exam Patient acknowledged, consented, and participated in this virtual visit which was conducted using real time audio/video Vital Signs Date Time Temp Pulse Resp B/P (MAP) Pulse Ox O2 Delivery O2 Flow Rate FiO2 04/13/21 09:33 88 Vapotherm 40.00 100 04/13/21 09:32 111 04/13/21 08:50 88 Vapotherm 40.00 100 04/13/21 08:29 36.8 92 20 121/62 (81) Nasal Cannula 8.00 04/13/21 07:42 Nasal Cannula 8.00 04/13/21 07:31 87 Nasal Cannula 6.00 04/13/21 03:40 36.4 110 18 128/72 (90) 93 Nasal Cannula 5.00 04/12/21 23:29 36.8 109 18 122/78 (93) 92 Nasal Cannula 5.00 04/12/21 20:05 Nasal Cannula 5.00 04/12/21 19:55 36.6 115 22 118/77 (91) 89 Nasal Cannula 4.00 04/12/21 19:15 38.9 134 91 32 04/12/21 18:50 91 Nasal Cannula 4.00 04/12/21 16:09 36.5 114 20 116/69 (85) 91 Nasal Cannula 4.00 04/12/21 15:10 90 Nasal Cannula 4.00 04/12/21 12:00 37.2 122 20 135/73 (93) 90 Nasal Cannula 4.00 04/12/21 10:09 38.2 92 Nasal Cannula 4.00 I & O 04/13/21 07:00 Intake Total 3939 ml Balance 3939 ml Height & Weight Height: 5'0" Weight: 320lbs. oz. 145.846575bo; 68.45 BMI Method:Stated General Appearance: WD/WN, Mild Distress, Obese HEENT: PERRL/EOMI, Pharynx Normal Neck: Non Tender, Supple Respiratory: No Accessory Muscle Use, Crackles (Bilateral throughout), Respiratory Distress (Hypoxic and requiring 3 L via nasal cannula to keep sats greater than 92%) Cardiovascular: No Murmur, Tachycardia Gastrointestinal: normal bowel sounds, non tender, soft Extremity: Normal Range of Motion, Non Tender Neurologic/Psychiatric: Alert, Oriented x3 Other comments VT PER ATTENDING PHYSICIAN Results Lab Laboratory Tests 04/12/21 01:28 Radiology CXR REVIEWED Assessment/Plan Assessment/Plan 1. Multilobar Covid19 pneumonia 2. Acute respiratory failure hypoxic due to pneumonia 3. Super morbid obesity 4. Uncontrolled diabetes mellitus 5. History of questionable hypertension 6. Patient developed atrial fibrillation with rapid ventricular rate this a.m. 7. High risk for DVT and PE Recommendations 1. Patient will be oxygenated with Vapotherm to keep saturation over 90%. 2. Aggressive DVT prophylaxis 3. IV dexamethasone 4. Aggressive control of diabetes mellitus 5. Patient is attended by me via video visit and assisted in the management of A. fib with RVR. We have given so for adenosine 6 mg and 12 mg initially followed by Lopressor 5 mg IV, digoxin 0.5 mg IV push x2 followed by Cardizem drip following a bolus. With which heart rate came down to 120s. Awaiting further improvement otherwise we will further uptitrate Cardizem drip and add digoxin on a daily basis. 6. Suggest cardiology consultation 7. Remdesivir if it is not already given along with Actemra. 8. Prognosis guarded. 9. Suggest echocardiogram today at bedside.. Time spent with patient (mins): 50 Diagnosis/Problems Problems/Diagonsis (1) covid pna with hypoxia (2) Pneumonia due to COVID-19 virus Status: Acute (3) Hypercoagulable state associated with COVID-19 Status: Acute (4) BMI 60.0-69.9, adult Status: Chronic (5) Elevated LFTs Status: Acute RAZA BELTRAN MD Apr 13, 2021 09:51
[2021-04-13 09:58] LABS: BILIRUBIN,URINE NEGATIVE (NEGATIVE); CLARITY,URINE CLEAR; COLOR,URINE YELLOW; GLUCOSE, URINE (UA) TRACE (NEGATIVE); KETONES,URINE NEGATIVE (NEGATIVE); LEUKOCYTE ESTERASE ,URINE NEGATIVE (NEGATIVE); NITRITE,URINE NEGATIVE (NEGATIVE); PH,URINE 6.5 (5-9); PROTEIN,URINE 2+ (NEGATIVE)
[2021-04-13 10:12] LABS: AMORPHOUS SEDIMENT,UR RARE AMOR URATES /LPF; BACTERIA,URINE NEGATIVE /HPF; WBC,URINE 0-2 /HPF
[2021-04-13] MEDS: dilTIAZem DRIP PRE-MIX 125 ML IV SCH (10:31)
[2021-04-13] MEDS ORDERED: DexMEDEtomidine 250 ML DRIP 250 ML IV ONE (10:36)
[2021-04-13 11:45] LABS: BASOPHILS % (AUTO) 1 % (0-10); EOSINOPHILS % (AUTO) 0 % (0-10); HEMATOCRIT 42 % (35-52); HEMOGLOBIN 14.3 g/dL (11.5-16.0); LYMPHOCYTES # (AUTO) 0.3 10^3/uL (1.0-4.0); LYMPHOCYTES % (AUTO) 4 % (12-44); MEAN CORPUSCULAR HEMOGLOBIN 31 pg (25-34); MEAN CORPUSCULAR HGB CONC 34 g/dL (32-36); MEAN CORPUSCULAR VOLUME 90 fL (80-99); MEAN PLATELET VOLUME 10.5 fL (9.0-12.2); MONOCYTES # (AUTO) 0.1 10^3/uL (0.0-1.0); MONOCYTES % (AUTO) 2 % (0-12); NEUTROPHILS # (AUTO) 6.6 10^3/uL (1.8-7.8); NEUTROPHILS % (AUTO) 93 % (42-75); PLATELET COUNT 271 10^3/uL (130-400); WHITE BLOOD COUNT 7.1 10^3/uL (4.3-11.0)
[2021-04-13] MEDS ORDERED: AMIODARONE FOR BOLUS 150 MG in D5W 100 ML IVPB 100 ML IV ONE (11:45)
[2021-04-13] MEDS: DexMEDEtomidine 250 ML DRIP 250 ML IV SCH (11:54)
[2021-04-13] MEDS ORDERED: RT-ALBUTEROL HFA 8.5 GM INHALER IH PRN (12:00)
[2021-04-13] MEDS: AMIODARONE INJECTION 450 MG in D5W IV SOLUTION (EXCEL) 250 ML IV SCH ×2 (12:03→18:06)
[2021-04-13 12:04] LABS: POTASSIUM 3.4 MMOL/L (3.6-5.0)
[2021-04-13 12:06] LABS: CALCIUM 9.4 MG/DL (8.5-10.1)
[2021-04-13 12:07] LABS: TOTAL PROTEIN 6.6 GM/DL (6.4-8.2)
[2021-04-13 12:09] LABS: BILIRUBIN,TOTAL 0.8 MG/DL (0.1-1.0)
[2021-04-13 12:10] LABS: CREATININE SERUM 0.83 MG/DL (0.60-1.30)
--- NOTE | 2021-04-13 12:17 | Progress Note - Hospitalist ---
Subjective HPI/CC On Admission Date Seen by Provider: Apr 13, 2021 Time Seen by Provider: 11:15 Subjective/Events-last exam Transferred to ICU urgently BiPAP maxed out High risk for intubation DM OOC BMI 68 is risk factor for decline Checked meds and labs BCx likely contaminate Review of Systems General: Fatigue, Malaise Focused Exam Lactate Level 04/12/21 01:28: Lactic Acid Level 3.71*H 04/12/21 03:56: Lactic Acid Level 1.71 Objective Exam Vital Signs Vital Signs Date Time Temp Pulse Resp B/P (MAP) Pulse Ox O2 Delivery O2 Flow Rate FiO2 04/14/21 06:00 39.4 114 28 119/64 (82) 89 Mechanical Ventilator 100.00 04/14/21 02:19 100 Capillary Refill : General Appearance: No Apparent Distress, WD/WN, Chronically ill, Obese Respiratory: Crackles, Decreased Breath Sounds, Wheezing Cardiovascular: Regular Rate, Rhythm Results/Procedures Lab Laboratory Tests 04/13/21 11:30 04/14/21 04:00 Patient resulted labs reviewed. Assessment/Plan Assessment and Plan Assess & Plan/Chief Complaint Assessment: Acute respiratory failure hypoxic type due to COVID-19 pneumonia Super morbid obesity BMI 68 Diabetes [id number] Acute kidney injury Plan: ICU care BiPAP and Vapotherm High risk for intubation High risk for ROQUE CHAMBERS DO Apr 13, 2021 12:17
--- NOTE | 2021-04-13 13:28 | Progress Note-Post Operative ---
Post-Operative Progess Note Surgeon (s)/Creche Attendant (s) Surgeon SOUMYA MARLEY DO Creche Attendant: none Pre-Operative Diagnosis Covid + Respiratory failure, Venous insufficiency, Hypotension Post-Operative Diagnosis same Procedure & Operative Findings Date of Procedure 04/13/21 Procedure Performed/Findings Central line placement with US guidance The patient was in their bed in the ICU, was prepped and draped in the sterile fashion. A surgical pause was performed. Ultrasound was used to locate the internal jugular vein. Once located anesthetic was infiltrated above it. Using an 18 gauge finder needle and watching with the US; the right internal jugular vein was accessed. Dark nonpulsatile blood was withdrawn. The wire was inserted. Fluoroscopy assured proper placement. The needle was removed. A [#11] blade scalpel was used to make a stab incision along the guidewire. Dilator sheath was then advanced over the wire using Seldinger technique and the dilator was removed. The Groshong catheter was inserted over the guide wire using the Seldinger technique. The Groshong wire was removed. The catheter was then accessed in all three ports without difficulty. Good flash of blood was seen and it was then flushed with saline. The catheter was sutured in place with 3-0 silk on a nanette needle. The areas were then washed and dried. Sterile dressing was placed over incision. The patient tolerated the procedure well without complication. Anesthesia Type local lidocaine Estimated Blood Loss Estimated blood loss (mL): scant Specimens/Packing Specimens Removed none SOUMYA MARLEY DO Apr 13, 2021 13:28
--- NOTE | 2021-04-13 13:34 | Consultation - Surgery ---
History of Present Illness History of Present Illness Patient Consulted On(osvaldo/time) 04/13/21 13:28 Time Seen by Provider: 13:01 History of Present Illness Surgery asked to consult regarding Venous Insufficiency and Hypotension HPI per IM: 40 yo F that presented to ER with increasing shortness of breath after testing + for Covid on Thursday. She states that she started to feel bad last but then started to have fevers and went to get tested for COVID. Patient's son also has covid at this time. Denies any previous lung dz or oxygen requirement. Patient states that she is a former smoker. She has not received her vaccine. When I saw pt she was on Bipap and not really answering questions. Hx obtained from chart and nursing. Allergies and Home Medications Allergies Coded Allergies: Mari Known Allergies (Verified Allergy, Unknown, 04/14/07) Patient Home Medication List Home Medication List Reviewed: Yes Ascorbate Calcium (Vitamin C) 500 Mg Tablet, 500 MG PO DAILY, (Reported) Entered as Reported by: YANELY SANTOS on 04/12/21 1034 Last Action: Reviewed Cholecalciferol (Vitamin D3) (Vitamin D3) 50 Mcg Capsule, 50 MCG PO DAILY, (Reported) Entered as Reported by: YANELY SANTOS on 04/12/21 103 Last Action: Reviewed Multivitamin (Multivitamin) 1 Each Tablet, 1 EACH PO DAILY, (Reported) Entered as Reported by: YANELY SANTOS on 04/12/21 103 Last Action: Reviewed Zinc (Zinc) 50 Mg Tablet, 50 MG PO DAILY, (Reported) Entered as Reported by: YANELY SANTOS on 04/12/21 103 Last Action: Reviewed Discontinued Medications Hydrocodone/Acetaminophen (Hydrocodone-Acetamin 5-325 mg) 1 Each Tablet, 1 EACH PO Q6H Discontinued Reason: No Longer Taking Prescribed by: KAUSHIK CAMPBELL on 02/02/20 1850 Last Action: Discontinued Lisinopril (Lisinopril) 20 Mg Tablet, 20 MG PO DAILY, (Reported) Discontinued Reason: No Longer Taking Entered as Reported by: MOISES NIX on 12/14/19 1439 Last Action: Discontinued Pantoprazole Sodium (Pantoprazole Sodium) 20 Mg Tablet.dr, 20 MG PO DAILY, (Reported) Discontinued Reason: No Longer Taking Entered as Reported by: MOISES NIX on 12/14/19 1439 Last Action: Discontinued Prednisone (Prednisone) 50 Mg Tab, 50 MG PO DAILY Discontinued Reason: No Longer Taking Prescribed by: KAUSHIK CAMPBELL on 02/02/20 1850 Last Action: Discontinued Past Prxxczl-Oxbtwq-Bgslsu Hx Patient Social History Smoking Status: Former Smoker Former Smoker, Quit: Dec 13, 2016 Type Used: Cigarettes 2nd Hand Smoke Exposure: Yes Recent Hopitalizations: No Alcohol Use?: Yes Have you traveled recently?: No Immunizations Up To Date Tetanus Booster (TDap): More than 5yrs Seasonal Allergies Seasonal Allergies: Yes Surgeries History of Surgeries: Yes Surgeries: Section, Gallbladder Respiratory History of Respiratory Disorde: No Cardiovascular History of Cardiac Disorders: Yes Cardiac Disorders: Hypertension Neurological History of Neurological Disord: No Reproductive System Hx Reproductive Disorders: Yes (HX PID--USES IUD) Female Reproductive Disorders: 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 Genitourinary History of Genitourinary Disor: No Gastrointestinal History of Gastrointestinal Di: Yes (blood in stool) Gastrointestinal Disorders: Gastroesophageal Reflux, Chronic Diarrhea Musculoskeletal History of Musculoskeletal Dis: No Endocrine History of Endocrine Disorders: Yes (MORBIDLY OBESE) HEENT History of HEENT Disorders: No Cancer History of Cancer: No Psychosocial History of Psychiatric Problem: No Integumentary History of Skin or Integumenta: No Blood Transfusions History of Blood Disorders: No Adverse Reaction to a Blood Tr: No Family Medical History Significant Family History: No Pertinent Family Hx Review of Systems-General ROS-Unable to Obtain: pt on BiPap and not really answering Physical Exam-General Problems Physical Exam Vital Signs Vital Signs - First Documented 04/12/21 19:15 FiO2 32 Capillary Refill : General Appearance: moderate distress, obese Eyes: Bilateral Eye PERRL, Bilateral Eye EOMI HEENT: No scleral icterus (R), No scleral icterus (L) Respiratory: decreased breath sounds, accessory muscle use, crackles, rhonchi, wheezing, other (tachypnea) Cardiovascular: no murmur, tachycardia Gastrointestinal: non tender, soft, no organomegaly Extremities: no pedal edema, no calf tenderness Skin: normal color, warm/dry Data Review Labs Laboratory Tests 04/12/21 16:16: Glucometer 386H 04/12/21 20:01: Glucometer 411*H 04/13/21 05:35: Glucometer 401*H 04/13/21 09:16: Blood Gas Puncture Site R RADIAL, Blood Gas Patient Temperature 37.2, Arterial Blood pH 7.43, Arterial Blood Partial Pressure CO2 35, Arterial Blood Partial Pressure O2 58L, Arterial Blood HCO3 23, Arterial Blood Total CO2 23.7, Arterial Blood Oxygen Saturation 89L, Arterial Blood Base Excess -1.0, Alvin Test POSITIV E, Blood Gas Ventilator Setting NO, Blood Gas Inspired Oxygen 100% VAPOTERM 04/13/21 09:44: Urine Color YELLOW, Urine Clarity CLEAR, Urine pH 6.5, Urine Specific [place] 1.015L, Urine Protein 2+H, Urine Glucose (UA) TRACEH, Urine Ketones NEGATIVE, Urine Nitrite NEGATIVE, Urine Bilirubin NEGATIVE, Urine Urobilinogen 1.0, Urine Leukocyte Esterase NEGATIVE, Urine RBC (Auto) 3+H, Urine RBC 5-10H, Urine WBC 0- 2, Urine Crystals PRESENTH, Urine Amorphous Sediment RARE LADI URATESH, Urine Bacteria NEGATIVE, Urine Casts NONE, Urine Mucus NEGATIVE, Urine Culture Indicated NO 04/13/21 10:10: Glucometer 351H 04/13/21 11:30: White Blood Count 7.1, Red Blood Count 4.63, Hemoglobin 14.3, Hematocrit 42, Mean Corpuscular Volume 90, Mean Corpuscular Hemoglobin 31, Mean Corpuscular Hemoglobin Concent 34, Red Cell Distribution Width 12.6, Platelet Count 271, Mean Platelet Volume 10.5, Immature Granulocyte % (Auto) 1, Neutrophils (%) (Auto) 93H, Lymphocytes (%) (Auto) 4L, Monocytes (%) (Auto) 2, Eosinophils (%) (Auto) 0, Basophils (%) (Auto) 1, Neutrophils # (Auto) 6.6, Lymphocytes # (Auto) 0.3L, Monocytes # (Auto) 0.1, Eosinophils # (Auto) 0.0, Basophils # (Auto) 0.0, Immature Granulocyte # (Auto) 0.1, Sodium Level 133L, Potassium Level 3.4L, Chloride Level 99, Carbon Dioxide Level 19L, Anion Gap 15H, Blood Urea Nitrogen 15, Creatinine 0.83, Estimat Glomerular Filtration Rate 75, BUN/Creatinine Ratio 18, Glucose Level 384H, Calcium Level 9.4, Corrected Calcium 10.2H, Magnesium Level 1.8, Total Bilirubin 0.8, Aspartate Amino Transf (AST/SGOT) 45H, Alanine Aminotransferase (ALT/SGPT) 63H, Alkaline Phosphatase 79, Total Protein 6.6, Albumin 3.0L Microbiology 04/12/21 Urine Culture - Final, Complete Mixed Bacterial Radha Radiology Date of Exam:04/13/21 CHEST 1 VIEW, AP/PA ONLY HISTORY: COVID positive, tachycardia, shortness of air. COMPARISON: 04/12/2021 TECHNIQUE: Frontal view of the chest. FINDINGS: There are multifocal airspace opacities throughout the lungs bilaterally, with dense consolidation in the right upper lobe. Overall aeration appears similar to the prior study. Defibrillator pads and multiple leads are noted over the chest. The cardiac silhouette is normal in size. There is no pleural effusion or pneumothorax. IMPRESSION: 1. Multifocal airspace opacities in the lungs bilaterally, consistent with infection, and stable since the prior exam. Dictated by: Dictated on workstation # [id number] Dict: 04/13/21 0943 Trans: 04/13/21 1011 [facility] [id number] Interpreted by: SPENCER GARCIA MD Electronically signed by: SPENCER GARCIA MD 04/13/21 1011 Assessment/Plan Assessment/Plan Assessment/Plan Covid + Respiratory Failure Venous insufficiency Morbid obesity Hypotension Pt is beginning to have worsening breathing problems and looks headed toward ventilation, she is septic and will probably need pressors later. Needs central venous access in case she needs pressors. Will place central line, consent on chart. [facility] management. SOUMYA MARLEY DO Apr 13, 2021 13:34
[2021-04-13 14:15] LABS: ABG BASE EXCESS -1.3 MMOL/L (-2.5-2.5); ABG OXYGEN SATURATION 93 % (94-100); ABG PCO2 35 MMHG (35-45); ABG PH 7.42 (7.37-7.43); ABG PO2 64 MMHG (79-93); ABG TCO2 23.8 MMOL/L (21.0-31.0)
[2021-04-13 14:18] LABS: ALLENS TEST POSITIVE; INSPIRED O2 100% BIPAP; PATIENT TEMP 36.4; VENTILATOR NO
[2021-04-13] MEDS ORDERED: proPOfol 200 MG/20 ML (DIPRIVAN) VIAL IV ONE (14:37)
[2021-04-13] MEDS ORDERED: PROPOFOL DRIP (ICU) 100 ML IV ONE (14:37)
[2021-04-13] MEDS ORDERED: NS IV 1000 ML 1,000 ML ONE (15:16)
[2021-04-13] MEDS ORDERED: fentaNYL DRIP PRE-MIX 250 ML IV SCH (15:30)
[2021-04-13] MEDS ORDERED: POTASSIUM CL 10MEQ/50ML IVPB 50 ML IV ONE ×2 (15:30→15:45)
[2021-04-13] MEDS ORDERED: fentaNYL DRIP PRE-MIX 250 ML IV ONE (15:30)
[2021-04-13] MEDS ORDERED: NOREPINEPHRINE 8 MG/250 ML 0 ML IV ONE (15:57)
[2021-04-13] MEDS: PHENYLEPHRINE INJECTION 20 MG in NS (IVPB) 250 ML IV SCH ×3 (16:05→19:13)
--- NOTE | 2021-04-13 16:06 | Tele-ICU Progress Note ---
Progress Note Patient this afternoon developed respiratory distress requiring intubation. I have made a video visit and watch of the procedure of intubation by the anesthesiologist which were not smoked. However after intubation her heart rate again increase it to 140-160/min range. Hence we have given him amiodarone bolus again. Meanwhile patient developed hypotension and started on Garth- Synephrine. Postintubation chest x-ray reviewed which showed ET tube just above the thoracic inlet hence I advised the RN to have the respiratory therapy push ET tube to 25 cm level at the lip. I did not see any gross evidence of pneumothorax even though the chest film is somewhat degraded by the morbid obesity. Awaiting official report from the radiologist. Bilateral extensive infiltrates again demonstrated. cc time 1 hr Focused Exam Lactate Level 04/12/21 01:28: Lactic Acid Level 3.71*H 04/12/21 03:56: Lactic Acid Level 1.71 Height, Weight, BMI Height: 5'0" Weight: 320lbs. oz. 145.513125it; 68.45 BMI Method:Stated RAZA BELTRAN MD Apr 13, 2021 16:06
--- NOTE | 2021-04-13 16:10 | Diagnostic Imaging Report ---
HISTORY: Intubation. COMPARISON: Chest x-ray from the same day. TECHNIQUE: Frontal view of the chest. FINDINGS: The endotracheal tube is mildly high, about 7.5 cm above the oliver. This could be advanced 2 cm. The right central line tip projects over the low SVC. There is a small left pleural effusion. There are bilateral airspace opacities, right greater than left, which appear mildly improved compared to the prior study. There is no pneumothorax. The cardiac silhouette is stable in size. An enteric tube projects over the stomach. IMPRESSION: 1. The endotracheal tube is mildly high, and could be advanced 2 cm. 2. The right central line projects over the low SVC. The OG tube projects over the stomach. 3. Marked bilateral airspace opacities, right greater than left, mildly improved since the prior study. 4. Small left pleural effusion. Report was called to nurse Medina in the [facility] at 4:06 p.m., by lizeth. She said they had just advanced the tube. Dictated by: Dictated on workstation # [id number]
[2021-04-13] MEDS ORDERED: ROCURONIUM 10 MG/ML 5 ML SYRINGE IV ONE (16:26)
[2021-04-13] MEDS ORDERED: ETOMIDATE IV SOLN 20 MG/10 ML VIAL IV ONE (16:26)
[2021-04-13] MEDS ORDERED: MIDAZOLAM DRIP PRE-MIX 100 ML IV SCH (16:30)
[2021-04-13] MEDS: MIDAZOLAM DRIP PRE-MIX 100 ML IV SCH (16:32)
[2021-04-13 16:46] LABS: ABG OXYGEN SATURATION 86 % (94-100); ABG PCO2 52 MMHG (35-45); ABG PO2 62 MMHG (79-93); ABG TCO2 24.9 MMOL/L (21.0-31.0)
[2021-04-13] MEDS: ACETAMINOPHEN 325 MG TABLET PO PRN ×2 (16:48→20:36)
[2021-04-13 16:49] LABS: ABG PH 7.29 (7.37-7.43); INSPIRED O2 100%; PATIENT TEMP 101; VENTILATOR YES
[2021-04-13] MEDS: PROPOFOL DRIP (ICU) 100 ML IV SCH ×3 (17:00→20:43)
--- NOTE | 2021-04-13 17:20 | Anesthesia-Procedure Note ---
Procedures/Interventions Procedure Start/Stop/Diagnosis Date of Procedure: Apr 13, 2021 Start Time: 16:45 Stop Time: 17:00 Arterial Line Arterial Line Catheter: 20G Type: Radial Location: Right Procedure: prepped, draped in sterile fashion, good wave-form was obtained, patient tolerated procedure well, no immediate complications, post procedure area cleaned, post procedure dressing applied FELIPA MCMAHON CRNA Apr 13, 2021 17:20
[2021-04-13] MEDS: fentaNYL DRIP PRE-MIX 250 ML IV SCH (19:33)
[2021-04-13] MEDS: PHENYLEPHRINE INJECTION 40 MG in NS (IVPB) 250 ML IV SCH (22:29)
[2021-04-13] MEDS ORDERED: NOREPINEPHRINE 8 MG/250 ML 250 ML IV ONE (22:31)
[2021-04-13] MEDS: NOREPINEPHRINE 8 MG/250 ML 250 ML IV SCH (22:35)
[2021-04-14] VITALS (27 sets, daily range): BP systolic 77–186; BP diastolic 50–95
[2021-04-14] MEDS ORDERED: inSUlin ASPART (NovoLOG) 1 UNIT/0.01 ML (CHARGE PER UNIT) SC SCH ×3
[2021-04-14] MEDS: dilTIAZem DRIP PRE-MIX 125 ML IV SCH ×2 (00:47→08:46)
[2021-04-14] MEDS ORDERED: inSUlin ASPART (NovoLOG) 1 UNIT/0.01 ML (CHARGE PER UNIT) ONE (00:49)
[2021-04-14] MEDS: inSUlin ASPART (NovoLOG) 1 UNIT/0.01 ML (CHARGE PER UNIT) SC SCH ×4 (00:50→17:30)
[2021-04-14] MEDS: PROPOFOL DRIP (ICU) 100 ML IV SCH ×11 (01:02→21:08)
[2021-04-14] MEDS: fentaNYL DRIP PRE-MIX 250 ML IV SCH ×5 (01:03→20:03)
[2021-04-14] MEDS: AMIODARONE INJECTION 450 MG in D5W IV SOLUTION (EXCEL) 250 ML IV SCH (01:03)
[2021-04-14] MEDS: PHENYLEPHRINE INJECTION 40 MG in NS (IVPB) 250 ML IV SCH ×8 (01:03→20:03)
[2021-04-14] MEDS: RT-ALBUTEROL HFA 8.5 GM INHALER IH SCH ×5 (02:19→18:58)
[2021-04-14] MEDS: DexMEDEtomidine 250 ML DRIP 250 ML IV SCH (03:31)
[2021-04-14] MEDS: ACETAMINOPHEN 325 MG TABLET PO PRN ×4 (03:33→19:41)
[2021-04-14] MEDS: NOREPINEPHRINE 8 MG/250 ML 250 ML IV SCH ×4 (04:05→14:19)
[2021-04-14 04:09] LABS: BASOPHILS # (AUTO) 0.1 10^3/uL (0.0-0.1); BASOPHILS % (AUTO) 1 % (0-10); EOSINOPHILS % (AUTO) 0 % (0-10); HEMATOCRIT 47 % (35-52); HEMOGLOBIN 15.4 g/dL (11.5-16.0); LYMPHOCYTES # (AUTO) 0.9 10^3/uL (1.0-4.0); LYMPHOCYTES % (AUTO) 12 % (12-44); MEAN CORPUSCULAR HEMOGLOBIN 31 pg (25-34); MEAN CORPUSCULAR HGB CONC 33 g/dL (32-36); MEAN CORPUSCULAR VOLUME 93 fL (80-99); MEAN PLATELET VOLUME 10.5 fL (9.0-12.2); MONOCYTES # (AUTO) 0.2 10^3/uL (0.0-1.0); MONOCYTES % (AUTO) 2 % (0-12); NEUTROPHILS # (AUTO) 6.6 10^3/uL (1.8-7.8); NEUTROPHILS % (AUTO) 85 % (42-75); PLATELET COUNT 405 10^3/uL (130-400); WHITE BLOOD COUNT 7.8 10^3/uL (4.3-11.0)
[2021-04-14] MEDS ORDERED: ROCURONIUM 10 MG/ML 5 ML SYRINGE IV ONE ×2 (04:18→04:30)
[2021-04-14 04:21] LABS: ABG BASE EXCESS -6.2 MMOL/L (-2.5-2.5); ABG OXYGEN SATURATION 83 % (94-100); ABG PCO2 50 MMHG (35-45); ABG PO2 54 MMHG (79-93); ABG TCO2 21.6 MMOL/L (21.0-31.0)
[2021-04-14 04:22] LABS: ALBUMIN 2.8 GM/DL (3.2-4.5); INSPIRED O2 NOT INDICATED; POTASSIUM 3.8 MMOL/L (3.6-5.0)
[2021-04-14 04:23] LABS: ABG PH 7.23 (7.37-7.43); CALCIUM 8.6 MG/DL (8.5-10.1); PATIENT TEMP NOT INDICATED; VENTILATOR NO
[2021-04-14 04:25] LABS: TOTAL PROTEIN 6.4 GM/DL (6.4-8.2)
[2021-04-14 04:28] LABS: CREATININE SERUM 1.69 MG/DL (0.60-1.30); PHOSPHORUS 3.1 MG/DL (2.3-4.7)
[2021-04-14 04:31] LABS: MAGNESIUM 1.9 MG/DL (1.6-2.4)
[2021-04-14] MEDS: CISATRACURIUM DRIP 250 ML IV SCH ×5 (05:29→21:18)
[2021-04-14] MEDS ORDERED: KCL 20 MEQ TAB (K-DUR) PO SCH (06:00)
[2021-04-14] MEDS ORDERED: MAGNESIUM 1 GM/100 ML IVPB 100 ML IV SCH (06:00)
[2021-04-14] MEDS ORDERED: POTASSIUM CL 10MEQ/50ML IVPB 50 ML IV SCH (06:00)
[2021-04-14] MEDS ORDERED: IBUPROFEN 600 MG (MOTRIN) TAB PO ONE (06:49)
[2021-04-14] MEDS: IBUPROFEN 600 MG (MOTRIN) TAB PO PRN ×3 (06:50→17:39)
[2021-04-14] MEDS: UMECLIDINIUM BROMIDE (INCRUSE ELLIPTA) 7'S IH SCH (06:59)
--- NOTE | 2021-04-14 07:16 | Progress Note - Hospitalist ---
Subjective HPI/CC On Admission Date Seen by Provider: Apr 14, 2021 Time Seen by Provider: 11:00 Subjective/Events-last exam Patient becoming more complicated Now on 2 pressors Now normal sinus rhythm O2 sat is 70 when moved Poor prognosis Focused Exam Lactate Level Objective Exam Vital Signs Vital Signs Date Time Temp Pulse Resp B/P (MAP) Pulse Ox O2 Delivery O2 Flow Rate FiO2 04/14/21 21:08 123 04/14/21 21:07 86/73 04/14/21 21:00 41.3 28 58 Mechanical Ventilator 100.00 04/14/21 20:00 100 Capillary Refill : General Appearance: Chronically ill, Obese, Other (Comatose due to sedation) Respiratory: Rales, Wheezing Results/Procedures Lab Patient resulted labs reviewed. Assessment/Plan Assessment and Plan Assess & Plan/Chief Complaint Assessment: Acute respiratory failure hypoxic type due to COVID-19 pneumonia Super morbid obesity BMI 68 Diabetes hik-[id number] Acute kidney injury Plan: ICU care BiPAP and Vapotherm High risk for intubation High risk for 04/14/2021: Prognosis poor ROQUE CHAMBERS DO Apr 14, 2021 07:16
[2021-04-14] MEDS: ENOXAPARIN 60 MG/0.6 ML (LOVENOX) SYR SC SCH ×2 (08:54→21:08)
[2021-04-14] MEDS: MICONAZOLE 2% POWDER (DESENEX AF) 90 GM TOP SCH ×2 (08:55→21:09)
[2021-04-14] MEDS ORDERED: PANTOPRAZOLE 40 MG (PROTONIX) VIAL IV SCH (09:00)
[2021-04-14] MEDS: AMIODARONE 200 MG (CORDARONE) TAB PO SCH ×2 (09:05→21:08)
--- NOTE | 2021-04-14 09:12 | Tele-ICU Progress Note ---
Subjective Date Seen by a Provider: Apr 14, 2021 Time Seen by a Provider: 09:03 Subjective/Events-last exam Patient remained on mechanical ventilation. Currently with a respiratory rate of 28 and a PEEP of 20 and FiO2 of 100%. She is on vasopressors and also she has been chemically paralyzed. ABGs revealed the both metabolic and respiratory acidosis. We will did not have much follow the room to optimize ventilatory settings. In view of all 4 super morbid obesity were unable to prone her as well. Her heart rate is now normal and converted to sinus rhythm. Video visit made and also discussed with RN. Review of Systems ROS PER ATTENDING Sepsis Event Evaluation Height, Weight, BMI Height: 5'0" Weight: 320lbs. oz. 145.119020zo; 68.45 BMI Method:Stated Focused Exam Lactate Level 04/12/21 01:28: Lactic Acid Level 3.71*H 04/12/21 03:56: Lactic Acid Level 1.71 Exam Exam Patient acknowledged, consented, and participated in this virtual visit which was conducted using real time audio/video Vital Signs Date Time Temp Pulse Resp B/P (MAP) Pulse Ox O2 Delivery O2 Flow Rate FiO2 04/14/21 08:50 39.9 04/14/21 08:01 101 118/57 04/14/21 08:00 39.8 101 28 116/57 (76) 87 Mechanical Ventilator 100.00 04/14/21 07:00 116 04/14/21 07:00 106 28 82 100 04/14/21 07:00 39.6 110 27 115/61 (79) 86 Mechanical Ventilator 100.00 04/14/21 06:48 117/63 04/14/21 06:00 39.4 114 28 119/64 (82) 89 Mechanical Ventilator 100.00 04/14/21 05:24 124 04/14/21 05:23 128/71 04/14/21 05:00 39.4 115 27 106/95 (99) 90 Mechanical Ventilator 100.00 04/14/21 04:05 116/59 04/14/21 04:05 109/61 04/14/21 04:00 39.4 126 24 114/85 (95) 83 Mechanical Ventilator 100.00 04/14/21 04:00 Mechanical Ventilator 100 04/14/21 03:31 126 04/14/21 03:00 39.1 134 24 94/64 (74) 92 Mechanical Ventilator 100.00 04/14/21 02:19 124 26 91 100 04/14/21 02:00 39.0 117 26 107/65 (79) 90 Mechanical Ventilator 100.00 04/14/21 01:04 92 107/62 04/14/21 01:03 107/62 04/14/21 01:02 94/63 04/14/21 01:00 116 04/14/21 01:00 116 35 120/83 (95) 93 Mechanical Ventilator 100.00 04/14/21 00:00 105 30 112/69 (83) 95 Mechanical Ventilator 100.00 04/14/21 00:00 95 Mechanical Ventilator 100 04/13/21 23:00 92 25 105/60 (75) 95 Mechanical Ventilator 100.00 04/13/21 22:35 68/45 04/13/21 22:29 65/41 04/13/21 22:05 Mechanical Ventilator 90.00 04/13/21 22:00 78 26 95/55 (68) 94 Mechanical Ventilator 100.00 04/13/21 21:58 95 90 04/13/21 21:52 75 23 96 100 04/13/21 21:00 81 22 104/60 (75) 95 Mechanical Ventilator 100.00 04/13/21 20:43 85 04/13/21 20:43 106/59 04/13/21 20:00 95 Mechanical Ventilator 100 04/13/21 20:00 98 22 129/66 (87) 95 Mechanical Ventilator 100.00 04/13/21 19:13 109/56 04/13/21 19:00 85 25 122/82 (95) 96 Mechanical Ventilator 100.00 04/13/21 19:00 101 04/13/21 18:34 79 27 96 100 04/13/21 18:06 90 129/74 04/13/21 18:00 94 Mechanical Ventilator 40.00 100 04/13/21 18:00 88 24 129/66 (87) 94 Mechanical Ventilator 100.00 04/13/21 17:48 108 102/67 04/13/21 17:05 87 24 90 100 04/13/21 17:00 90 102/67 04/13/21 17:00 104 25 133/89 (104) 90 Mechanical Ventilator 100.00 04/13/21 16:44 38.3 04/13/21 16:32 95 25 98/79 04/13/21 16:05 105 61/35 04/13/21 16:00 138 22 91/48 (62) 86 Mechanical Ventilator 100.00 04/13/21 15:26 163 19 90 100 04/13/21 15:00 122 21 160/113 (129) 91 Mechanical Ventilator 100.00 04/13/21 14:37 88 43 86 100.00 04/13/21 14:18 36.4 04/13/21 14:00 83 38 83/52 (62) 94 NIV Bilevel 100.00 04/13/21 13:12 84 04/13/21 13:00 97 39 96/62 (73) 92 NIV Bilevel 100.00 04/13/21 12:56 101 04/13/21 12:00 117 34 110/68 (82) 95 NIV Bilevel 100.00 04/13/21 11:54 130 110/68 04/13/21 11:48 146 110/68 04/13/21 11:44 NIV Bilevel 100.00 04/13/21 11:34 120 40 92 100.00 04/13/21 11:00 151 30 126/64 (84) 91 Vapotherm 40.00 100.00 04/13/21 10:58 36.8 154 92 100 04/13/21 10:00 151 31 91 Vapotherm 40.00 100.00 04/13/21 09:33 88 Vapotherm 40.00 100 04/13/21 09:32 111 04/13/21 09:00 154 28 113/90 (98) 90 Vapotherm 40.00 100.00 04/13/21 09:00 92 Vapotherm 40.00 100 I & O 04/14/21 07:00 Intake Total 1195 ml Output Total 875 ml Balance 320 ml Height & Weight Height: 5'0" Weight: 320lbs. oz. 145.730777hz; 68.45 BMI Method:Stated General Appearance: No Apparent Distress, WD/WN, Chronically ill, Obese HEENT: PERRL/EOMI, Pharynx Normal Neck: Non Tender, Supple Respiratory: Other (intubated,on vent and paralysed) Cardiovascular: Regular Rate, Rhythm Gastrointestinal: non tender, soft, no organomegaly Extremity: Normal Range of Motion, Non Tender Neurologic/Psychiatric: Alert, Oriented x3 Results Lab Laboratory Tests 04/13/21 11:30 04/14/21 04:00 Assessment/Plan Assessment/Plan 1. Multilobar Covid19 pneumonia 2. Acute respiratory failure hypoxic due to pneumonia getting worse 3. Super morbid obesity 4. Uncontrolled diabetes mellitus 5. History of questionable hypertension 6. Today afib converted to NSR 7. High risk for DVT and PE and Recommendations 1. Will continue current vent settings of 28/500/20/100%. 2. Aggressive DVT prophylaxis 3. IV dexamethasone 4. Aggressive control of diabetes mellitus 5. Continue amiodorone and wean cardiazem drip 6. Suggest cardiology consultation 7. Continue remdesvir 8. Prognosis very poor 9.will give 100 meq of NaHco3 10. She will not tolerate prone position due to super morbid obesity Critical Care: Ventilator Management Time spent with patient (mins): 40 Diagnosis/Problems Diagnosis/Problems (1) covid pna with hypoxia (2) Pneumonia due to COVID-19 virus Status: Acute (3) Hypercoagulable state associated with COVID-19 Status: Acute (4) BMI 60.0-69.9, adult Status: Chronic (5) Elevated LFTs Status: Acute RAZA BELTRAN MD Apr 14, 2021 09:11
[2021-04-14 09:36] LABS: ABG BASE EXCESS -8.8 MMOL/L (-2.5-2.5); ABG OXYGEN SATURATION 85 % (94-100); ABG PCO2 56 MMHG (35-45); ABG PO2 67 MMHG (79-93); ABG TCO2 19.6 MMOL/L (21.0-31.0)
[2021-04-14 09:38] LABS: ABG PH 7.15 (7.37-7.43); INSPIRED O2 100%; PATIENT TEMP 39.3; VENTILATOR YES
[2021-04-14] MEDS ORDERED: REMDESIVIR INJ 100 MG in NS (IVPB) 230 ML IV SCH (09:45)
--- NOTE | 2021-04-14 09:45 | Diagnostic Imaging Report ---
EXAM: CHEST 1 VIEW, AP/PA ONLY INDICATION: Respiratory failure. COVID. Intubated. COMPARISON: 04/13/2021. FINDINGS: ETT tip midway between the level clavicles and oliver. NG tube tip below the diaphragm. Right IJ CVC tip mid SVC. Multifocal airspace opacities throughout both lungs. No large pleural effusion or pneumothorax. Heart size is obscured. IMPRESSION: 1. Dense multifocal airspace opacities throughout both lungs are similar to the prior allowing for differences in technique. 2. Support lines in stable position. Dictated by: Dictated on workstation # [id number]
[2021-04-14] MEDS ORDERED: SODIUM BICARB 8.4% 50 MEQ/50 ML (ABBOTT) SYR IV ONE ×2 (10:00→16:00)
[2021-04-14] MEDS ORDERED: CISATRACURIUM DRIP 250 ML IV SCH (10:00)
--- NOTE | 2021-04-14 12:19 | Consultation-Cardiology ---
HPI-Cardiology Cardiology Consultation: Date of Consultation 04/14/2021 Date of Admission 04/12/2021 Attending Physician Isabel Blandon MD Admitting Physician [place] Consulting Physician TEO REILLY JR, MD HPI: Time Seen by a Provider: 12:17 Chief Complaint: Reason for consultation: Atrial fibrillation. I had the pleasure of consulting on Nurys in the intensive care unit at [facility] in [place], [place] today. I did not actually enter the patient's room due to her Covid status. She was admitted to the hospital 2 days ago with Covid infection and admitted to the medical floor. Yesterday she developed worsening respiratory status and was transferred to the intensive care unit. Around that time, she also developed tachycardia. Later in the day she was intubated and sedated and has remained on mechanical ventilation since that time. When the patient developed the tachycardia, the eICU physician started her on intravenous amiodarone. Overnight, she converted to sinus rhythm. She also developed shock and is currently on 2 vasopressors. I did not obtain any history from the patient since I did not enter her room because of Covid status. I did speak to her nurse of the day. Certain portions of this document may have been dictated utilizing voice recognition technology. Inherent to this technology, typographical and grammatical errors may exist. As much as I am diligent to identify and correct these mistakes, some errors may remain in the document. Review of Systems-Cardiology Review of Systems : No Other comments Not obtainable due to clinical status and sedation. All Other Systems Reviewed Negative Unless Noted: Yes RRP-[id number] Hx Patient Social History Smoking Status: Former Smoker Former smoker/When Quit: Feb 13, 2014 2nd Hand Smoke Exposure: Yes Have you traveled recently?: No Alcohol Use?: Yes Pt feels they are or have been: Unable to obtain Tobacco type used: Cigarettes Immunizations Up To Date Tetanus Booster (TDap): More than 5yrs Past Medical History PMH As described under Assessment. Family Medical History Family Medical History: Not obtainable due to clinical status. Allergies and Home Medications Allergies Coded Allergies: NKANo Known Allergies (Verified Allergy, Unknown, 04/14/07) Patient Home Medication List Home Medication List Reviewed: Yes Ascorbate Calcium (Vitamin C) 500 Mg Tablet, 500 MG PO DAILY, (Reported) Entered as Reported by: YANELY SANTOS on 04/12/211033 Last Action: Reviewed Cholecalciferol (Vitamin D3) (Vitamin D3) 50 Mcg Capsule, 50 MCG PO DAILY, (Reported) Entered as Reported by: YANELY SANTOS on 04/12/211033 Last Action: Reviewed Multivitamin (Multivitamin) 1 Each Tablet, 1 EACH PO DAILY, (Reported) Entered as Reported by: YANELY SANTOS on 04/12/211033 Last Action: Reviewed Zinc (Zinc) 50 Mg Tablet, 50 MG PO DAILY, (Reported) Entered as Reported by: YANELY SANTOS on 04/12/211033 Last Action: Reviewed Discontinued Medications Hydrocodone/Acetaminophen (Hydrocodone-Acetamin 5-325 mg) 1 Each Tablet, 1 EACH PO Q6H Discontinued Reason: No Longer Taking Prescribed by: KAUSHIK CAMPBELL on 02/02/201849 Last Action: Discontinued Lisinopril (Lisinopril) 20 Mg Tablet, 20 MG PO DAILY, (Reported) Discontinued Reason: No Longer Taking Entered as Reported by: MOISES NIX on 12/14/191438 Last Action: Discontinued Pantoprazole Sodium (Pantoprazole Sodium) 20 Mg Tablet.dr, 20 MG PO DAILY, (Reported) Discontinued Reason: No Longer Taking Entered as Reported by: MOISES NIX on 12/14/191438 Last Action: Discontinued Prednisone (Prednisone) 50 Mg Tab, 50 MG PO DAILY Discontinued Reason: No Longer Taking Prescribed by: KAUSHIK CAMPBELL on 02/02/201849 Last Action: Discontinued Exam Vital Signs Vital Signs Date Time Temp Pulse Resp B/P (MAP) Pulse Ox O2 Delivery O2 Flow Rate FiO2 04/14/21 13:51 123 97/55 04/14/21 13:00 40.0 28 81 Mechanical Ventilator 100.00 04/14/21 12:15 100 Physical Exam I reviewed the patient's vital signs. I did not examine the patient due to her Covid status. Labs Laboratory Tests Test 04/13/21 14:10 04/13/21 16:21 04/13/21 16:35 04/14/21 00:43 Range/Units Blood Gas Puncture Site L RADIAL UNK Blood Gas Patient Temperature 36.4 101 Arterial Blood pH 7.42 7.29 *L 7.37-7.43 Arterial Blood Partial Pressure CO2 35 52 H 35-45 MMHG Arterial Blood Partial Pressure O2 64 L 62 L 79-93 MMHG Arterial Blood HCO3 23 23 23-27 MMOL/L Arterial Blood Total CO2 23.8 24.9 21.0-31.0 MMOL/L Arterial Blood Oxygen Saturation 93 L 86 L 94-100 % Arterial Blood Base Excess -1.3 -2.0 -2.5-2.5 MMOL/L Alvin Test POSITIVE UNK Blood Gas Ventilator Setting NO YES Blood Gas Inspired Oxygen 100% BIPAP 100% Glucometer 389 H 302 H 70-110 MG/DL Test 04/14/21 04:00 04/14/21 09:30 04/14/21 11:57 Range/Units White Blood Count 7.8 4.3-11.0 10^3/uL Red Blood Count 5.00 3.80-5.11 10^6/uL Hemoglobin 15.4 11.5-16.0 g/dL Hematocrit 47 35-52 % Mean Corpuscular Volume 93 80-99 fL Mean Corpuscular Hemoglobin 31 25-34 pg Mean Corpuscular Hemoglobin Concent 33 32-36 g/dL Red Cell Distribution Width 13.0 10.0-14.5 % Platelet Count 405 H 130-400 10^3/uL Mean Platelet Volume 10.5 9.0-12.2 fL Immature Granulocyte % (Auto) 1 % Neutrophils (%) (Auto) 85 H 42-75 % Lymphocytes (%) (Auto) 12 12-44 % Monocytes (%) (Auto) 2 0-12 % Eosinophils (%) (Auto) 0 0-10 % Basophils (%) (Auto) 1 0-10 % Neutrophils # (Auto) 6.6 1.8-7.8 10^3/uL Lymphocytes # (Auto) 0.9 L 1.0-4.0 10^3/uL Monocytes # (Auto) 0.2 0.0-1.0 10^3/uL Eosinophils # (Auto) 0.0 0.0-0.3 10^3/uL Basophils # (Auto) 0.1 0.0-0.1 10^3/uL Immature Granulocyte # (Auto) 0.1 0.0-0.1 10^3/uL Blood Gas Puncture Site NOT INDICATED R ARTLINE Blood Gas Patient Temperature NOT INDICATED 39.3 Arterial Blood pH 7.23 *L 7.15 *L 7.37-7.43 Arterial Blood Partial Pressure CO2 50 H 56 H 35-45 MMHG Arterial Blood Partial Pressure O2 54 L 67 L 79-93 MMHG Arterial Blood HCO3 20 L 18 L 23-27 MMOL/L Arterial Blood Total CO2 21.6 19.6 L 21.0-31.0 MMOL/L Arterial Blood Oxygen Saturation 83 L 85 L 94-100 % Arterial Blood Base Excess -6.2 L -8.8 L -2.5-2.5 MMOL/L Alvin Test NA N/A Blood Gas Ventilator Setting NO YES Blood Gas Inspired Oxygen NOT INDICATED 100% Sodium Level 133 L 135-145 MMOL/L Potassium Level 3.8 3.6-5.0 MMOL/L Chloride Level 101 98-107 MMOL/L Carbon Dioxide Level 16 L 21-32 MMOL/L Anion Gap 16 H 5-14 MMOL/L Blood Urea Nitrogen 28 H 7-18 MG/DL Creatinine 1.69 H 0.60-1.30 MG/DL Estimat Glomerular Filtration Rate 33 BUN/Creatinine Ratio 17 Glucose Level 394 H 70-105 MG/DL Calcium Level 8.6 8.5-10.1 MG/DL Corrected Calcium 9.6 8.5-10.1 MG/DL Phosphorus Level 3.1 2.3-4.7 MG/DL Magnesium Level 1.9 1.6-2.4 MG/DL Total Bilirubin 2.0 H 0.1-1.0 MG/DL Aspartate Amino Transf (AST/SGOT) 158 H 5-34 U/L Alanine Aminotransferase (ALT/SGPT) 97 H 0-55 U/L Alkaline Phosphatase 139 H 40-136 U/L Total Protein 6.4 6.4-8.2 GM/DL Albumin 2.8 L 3.2-4.5 GM/DL Glucometer 321 H 70-110 MG/DL Radiology ECHOCARDIOGRAM (04/14/2021): 1. This is a technically difficult study due to poor image quality secondary to the patient's body habitus and ventilator status. 2. Left ventricle: The cavity size is normal. There is mild concentric hypertrophy. Systolic function is normal. The estimated ejection fraction is 65- 70%. There were no regional wall motion abnormalities identified. Left vent ricular diastolic function parameters are normal. 3. Right ventricle: The cavity size is normal. Systolic function is moderately reduced. TAPSE 1.2 cm. 4. Aortic valve: There is possible mild aortic stenosis with a mean gradient of 15 mmHg, a peak gradient of 30 mmHg, a peak velocity of 2.8 m/s and a calculated aortic valve area of 1.8 cm. However, due to poor image quality, the Doppler velocities and gradients may not be accurate. 5. Inferior vena cava: The vessel is dilated. The respirophasic diameter changes are blunted (less than 50%). 6. Pulmonary arteries: The pulmonary artery pressure cannot be estimated on this study due to inadequate tricuspid regurgitant envelope. 7. Pericardium, extracardiac: A small pericardial effusion is identified anterior to the heart. ECG Impression ECG Comment Electrocardiogram from earlier this morning shows atrial fibrillation with a controlled ventricular rate with nonspecific intraventricular conduction delay and nonspecific ST-T wave changes. Telemetry monitoring later in the morning shows sinus rhythm. Diagnosis/Problems Diagnosis/Problems (1) Paroxysmal atrial fibrillation Assessment & Plan: This was most likely brought on by her acute, noncardiac illness. She has converted to sinus rhythm on intravenous amiodarone. I will transition this over to oral amiodarone. She does not necessarily need treatment with anticoagulation for the atrial fibrillation at this time. (2) Acute respiratory failure due to COVID-19 Assessment & Plan: This condition most likely caused to the atrial fibrillation. Her ventilator is being managed by the hospitalist and eICU. (3) Septic shock Assessment & Plan: Given her shock in the setting of acute respiratory failure due to Covid, this is a poor prognostic sign. (4) Morbid obesity Assessment & Plan: This condition will make treating the Covid infection more difficult. TEO REILLY JR, MD Apr 14, 2021 12:19
[2021-04-14] MEDS: NS IV 1000 ML 1,000 ML IV SCH ×3 (13:50→18:20)
[2021-04-14] MEDS ORDERED: KETOROLAC 15 MG/ML VIAL IVP ONE (15:30)
[2021-04-14 15:45] LABS: ABG BASE EXCESS -12.4 MMOL/L (-2.5-2.5); ABG OXYGEN SATURATION 77 % (94-100); ABG PCO2 66 MMHG (35-45); ABG PO2 63 MMHG (79-93); ABG TCO2 17.6 MMOL/L (21.0-31.0)
[2021-04-14 15:47] LABS: ABG PH 7.04 (7.37-7.43); INSPIRED O2 100%; PATIENT TEMP 40.2; VENTILATOR YES
[2021-04-14] MEDS ORDERED: SODIUM BICARB 8.4% 50 MEQ/50 ML (ABBOTT) SYR ONE (15:54)
[2021-04-14] MEDS: NOREPINEPHRINE 16 MG in NS (IVPB) 234 ML IV SCH ×2 (17:08→20:19)
[2021-04-14] MEDS: MIDAZOLAM DRIP PRE-MIX 100 ML IV SCH (17:11)
[2021-04-14] MEDS ORDERED: FUROSEMIDE 40 MG/4 ML INJ (LASIX) ONE (17:53)
[2021-04-14] MEDS ORDERED: FUROSEMIDE 40 MG/4 ML INJ (LASIX) IVP ONE (18:00)
[2021-04-14] MEDS ORDERED: VASOPRESSIN INJECTION 20 UNIT/ML VIAL ONE (19:19)
[2021-04-14] MEDS ORDERED: NS (IVPB) 100 ML ONE (19:20)
[2021-04-14] MEDS ORDERED: NS (IVPB) 250 ML ONE (19:21)
[2021-04-14] MEDS ORDERED: EPINEPHrine (OMNICELL DRIP KIT ONLY) 1 MG/ML AMP ONE (19:21)
--- NOTE | 2021-04-14 19:29 | Tele-ICU Progress Note ---
Progress Note Pt with COVID PNA / ARDS and septic shock. Hypotensive. Vasopressin and Epi drip added to maintain MAP 65. d/w the bedside nurse. Cooling blanket or Arctic sun for cooling for temp 41 degrees. Interventions Major-Shock - evaluation and management Focused Exam Lactate Level 04/12/21 01:28: Lactic Acid Level 3.71*H 04/12/21 03:56: Lactic Acid Level 1.71 Height, Weight, BMI Height: 5'0" Weight: 320lbs. oz. 145.157178jk; 68.45 BMI Method:Stated CARINE MCCALL MD Apr 14, 2021 19:29
[2021-04-14] MEDS ORDERED: VASOPRESSIN INJECTION 20 UNIT in NS (IVPB) 100 ML IV SCH (19:30)
[2021-04-14] MEDS ORDERED: EPINEPHrine 1 MG INJECTION 4 MG in NS (IVPB) 246 ML IV SCH (19:30)
[2021-04-14] MEDS ORDERED: morphine INJ 4 MG/ML 1 ML (VIAL/SYRINGE) IV PRN (21:30)
[2021-04-14] MEDS ORDERED: LORazepam INJ 2 MG/ML (ATIVAN) VIAL IVP PRN (21:30)
[2021-04-14] MEDS ORDERED: morphine INJ 4 MG/ML 1 ML (VIAL/SYRINGE) ONE (21:31)
[2021-04-14] MEDS ORDERED: LORazepam INJ 2 MG/ML (ATIVAN) VIAL ONE (21:31)
--- NOTE | 2021-04-15 05:10 | Discharge Summary ---
Discharge Summary Hospital Course Was the Problem List Reviewed?: Yes Problems/Dx: (1) Acute respiratory failure due to COVID-19 (2) Paroxysmal atrial fibrillation (3) Septic shock (4) Morbid obesity Hospital Course Date of Admission: Apr 12, 2021 at 03:40 Admission Diagnosis : [facility]: 04/15/21 Discharge Diagnosis: Acute hypoxic respiratory failure, multisystem organ failure, morbid obesity, diabetes [id number] Hospital Course: Short hospital course after she was admitted for COVID-19 acute hypoxic respiratory failure. She rapidly progressed from Vapotherm to BiPAP to transfer to the ICU and intubation. Multisystem organ failure ensued requiring 2 pressor therapies and had an episode of A. fib with RVR requiring amiodarone initiation along with cardiology consultation. Diabetes continue to be out of control. Acute kidney injury noted. Patient progressed O2 sat was 40% on the ventilator maxed out with FiO2 and family decided DNR and terminal extubation and she was pronounced at 2150. Labs and Pending Lab Test: Laboratory Tests 04/14/21 09:30: Blood Gas Puncture Site R ARTLINE, Blood Gas Patient Temperature 39.3, Arterial Blood pH 7.15*L, Arterial Blood Partial Pressure CO2 56H, Arterial Blood Partial Pressure O2 67L, Arterial Blood HCO3 18L, Arterial Blood Total CO2 19.6L, Arterial Blood Oxygen Saturation 85L, Arterial Blood Base Excess -8.8L, Alvin Test N/A, Blood Gas Ventilator Setting YES, Blood Gas Inspired Oxygen 100% 04/14/21 11:57: Glucometer 321H 04/14/21 15:30: Blood Gas Puncture Site ARTLINE, Blood Gas Patient Temperature 40.2, Arterial Blood pH 7.04*L, Arterial Blood Partial Pressure CO2 66H, Arterial Blood Partial Pressure O2 63L, Arterial Blood HCO3 16*L, Arterial Blood Total CO2 17.6L, Arterial Blood Oxygen Saturation 77L, Arterial Blood Base Excess -12.4L, Alvin Test N/A, Blood Gas Ventilator Setting YES, Blood Gas Inspired Oxygen 100% 04/14/21 17:26: Glucometer 352H Microbiology 04/12/21 Blood Culture - Preliminary, Resulted Corynebacterium species 04/12/21 Urine Culture - Final, Complete Mixed Bacterial Radha Home Meds Active Reported Multivitamin 1 Each Tablet 1 Each PO DAILY Vitamin C (Ascorbate Calcium) 500 Mg Tablet 500 Mg PO DAILY Vitamin D3 (Cholecalciferol (Vitamin D3)) 50 Mcg Capsule 50 Mcg PO DAILY Zinc 50 Mg Tablet 50 Mg PO DAILY Assessment/Pt Instructions Discharge Planning: <30 minutes discharge planning Discharge Physical Examination Vital Signs Vital Signs Date Time Temp Pulse Resp B/P (MAP) Pulse Ox O2 Delivery O2 Flow Rate FiO2 04/14/21 21:08 123 04/14/21 21:07 86/73 04/14/21 21:00 41.3 28 58 Mechanical Ventilator 100.00 04/14/21 20:00 100 Allergies: Coded Allergies: NKANo Known Allergies (Verified Allergy, Unknown, 04/14/07) Discharge Summary Date of Admission Apr 12, 2021 at 03:40 Date of Discharge Apr 15, 2021 at 00:17 Discharge Diagnosis Assessment: Acute respiratory failure hypoxic type due to COVID-19 pneumonia Super morbid obesity BMI 68 Diabetes [id number] Acute kidney injury Plan: ICU care BiPAP and Vapotherm High risk for intubation High risk for (1) Paroxysmal atrial fibrillation Assessment & Plan: This was most likely brought on by her acute, noncardiac illness. She has converted to sinus rhythm on intravenous amiodarone. I will transition this over to oral amiodarone. She does not necessarily need treatment with anticoagulation for the atrial fibrillation at this time. (2) Acute respiratory failure due to COVID-19 Assessment & Plan: This condition most likely caused to the atrial fibrillation. Her ventilator is being managed by the hospitalist and eICU. (3) Septic shock Assessment & Plan: Given her shock in the setting of acute respiratory failure due to Covid, this is a poor prognostic sign. (4) Morbid obesity Assessment & Plan: This condition will make treating the Covid infection more difficult. ROQUE CHAMBERS DO Apr 15, 2021 05:10
--- NOTE | 2021-04-16 20:01 | Physician Query Clarification ---
PQ-Present on Admission Admission/Discharge Admission Date: Apr 12, 2021 at 03:40 Discharge Date: Apr 15, 2021 at 00:17 ROQUE De La Rosa DO The medical record reflects the following clinical scenario: History/Risk factors: 40 y/o female patient presented with COVID pneumonia, septic shock was documneted in medical record. Clinical findings: Temp-38.9, pulse-134, RR-30, BP-146/84, PO2-91, WBC-13.9 H on admission. Treatment: Remdesivir, Vasopressin, mechanical ventilation. Question: Septic shock was documented in progress notes, 04/14. Can you specify if this condition was present on admission? Please document a response in Progress Note or Discharge Summary. 1. Yes - Condition was present at the time of inpatient admission. 2. No - Condition was not present at the time of inpatient admission and it developed during the inpatient stay. 3. W - Provider is unable to clinically determine whether condition was present on admission or not. 4. Other [please specify] PHYSICIAN RESPONSE Condition was Present on Admit: No Please remember a lack of response to the above will prompt a phone page by [facility]/Coding staff. In responding to this query, please exercise your independent professional judgment. The purpose of this communication is to more accurately reflect the complexity of your patients condition. The fact that a question is asked does not imply that any particular answer is desired or expected. Thank you for your timely response to this clarification. Requestors name: [ ] Phone # [ ] THIS PHYSICIAN QUERY FORM IS A PERMANENT PART OF THE MEDICAL RECORD CRISPIN ZHANG Apr 16, 2021 20:01 ROQUE CHAMBERS DO Apr 16, 2021 21:11
--- NOTE | 2021-04-18 04:38 | ED Respiratory ---
General Chief Complaint: COVID19 Suspect/Confirmed Stated Complaint: COVID PNA W HYPOXIA Nursing Triage Note: CHILLS, BODYACHE, DIARRHEA STARTING 04/03/21, DX WITH COVID 04/07/21 C/O INCREASED SOA TONIGHT. Source: RN/MD Exam Limitations: clinical condition History of Present Illness Date Seen by Provider: Apr 13, 2021 Time Seen by Provider: 14:30 Initial Comments called to bedside due to significant decline in respiratory status for int ubation. Patient currently in ICU for Covid pneumonia, uncontrolled DM and HTN. Timing/Duration: getting worse Severity: severe Prior Episodes/Possible Cause: illness exposure Allergies and Home Medications Allergies Coded Allergies: NKANo Known Allergies (Verified Allergy, Unknown, 04/14/07) Patient Home Medication List Home Medication List Reviewed: Yes Ascorbate Calcium (Vitamin C) 500 Mg Tablet, 500 MG PO DAILY, (Reported) Entered as Reported by: YANELY SANTOS on 04/12/21 1034 Last Action: Reviewed Cholecalciferol (Vitamin D3) (Vitamin D3) 50 Mcg Capsule, 50 MCG PO DAILY, (Reported) Entered as Reported by: YNAELY SANTOS on 04/12/211033 Last Action: Reviewed Multivitamin (Multivitamin) 1 Each Tablet, 1 EACH PO DAILY, (Reported) Entered as Reported by: YANELY SANTOS on 04/12/211033 Last Action: Reviewed Zinc (Zinc) 50 Mg Tablet, 50 MG PO DAILY, (Reported) Entered as Reported by: YANELY SANTOS on 04/12/211033 Last Action: Reviewed Discontinued Medications Hydrocodone/Acetaminophen (Hydrocodone-Acetamin 5-325 mg) 1 Each Tablet, 1 EACH PO Q6H Discontinued Reason: No Longer Taking Prescribed by: KAUSHIK CAMPBELL on 02/02/20 1850 Last Action: Discontinued Lisinopril (Lisinopril) 20 Mg Tablet, 20 MG PO DAILY, (Reported) Discontinued Reason: No Longer Taking Entered as Reported by: MOISES NIX on 12/14/191438 Last Action: Discontinued Pantoprazole Sodium (Pantoprazole Sodium) 20 Mg Tablet.dr, 20 MG PO DAILY, (Reported) Discontinued Reason: No Longer Taking Entered as Reported by: MOISES NIX on 12/14/19 1439 Last Action: Discontinued Prednisone (Prednisone) 50 Mg Tab, 50 MG PO DAILY Discontinued Reason: No Longer Taking Prescribed by: KAUSHIK CAMPBELL on 02/02/20 185 Last Action: Discontinued Review of Systems Review of Systems Constitutional: see HPI : No Past Xrzznyf-Ybhpti-Ujtmym Hx Patient Social History Tobacco Use?: Yes Tobacco type used: Cigarettes Smoking Status: Former Smoker Smokeless Tobacco Frequency: Never a User Use of E-Cig and/or Vaping Yong: Never a User Substance use?: No Alcohol Use?: Yes Alcohol Frequency: Rarely Pt feels they are or have been: Unable to obtain Immunizations Up To Date Tetanus Booster (TDap): More than 5yrs Influenza Vaccine Up-to-Date: No; Not Current Seasonal Allergies Seasonal Allergies: Yes Past Medical History Surgery/Hospitalization HX: NIDDM Surgeries: Yes Section, Gallbladder Respiratory: No Cardiac: Yes Hypertension Neurological: No Last Menstrual Period: Apr 09, 2021 Reproductive Disorders: Yes (HX PID--USES IUD) 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 oz. [phone]; 68.45 BMI Method:Stated General Appearance: severe distress Respiratory: other (respirations assisted with BVM on my entry into the room. Patient in severe respiratory distress; tachycardic and tachypneic) Cardiovascular: tachycardia Gastrointestinal: other (morbid obesity) Focused Exam Lactate Level 04/12/21 01:28: Lactic Acid Level 3.71*H Lactic Acid Level Laboratory Tests Test 04/12/21 01:28 Lactic Acid Level 3.71 MMOL/L (0.50-2.00) *H Procedures/Interventions Date of ETT Placement: Apr 13, 2021 Time of ETT Placement: 14:50 Intubation Method: orotracheal Tube Size: 8.00 Medications: Etomidate, Rocuronium Positive End Tide CO2: Yes Breath Sounds after Intubation: bilateral-equal Intubation Complications: oral-unsuccessful attempt, O2 saturation decreased Post Intubation Xray: Yes Patient sedated with 20mg etomidate and 50mg rocuronium; subsequently 50mg propofol. After 2 attempts with difficulty due to patient's size/anatomy and a brief desaturation, cords were visualised and 8.0 ett successfully passed. positive breath soungds bilaterall, CO2 color change noted Care turned over to: eICU Progress/Results/Core Measures Suspected Sepsis Infection Criteria Present: Documented Infection Sepsis Screen: Severe Sepsis Risk SIRS Temperature: Pulse: 123 Respiratory Rate: 28 Laboratory Tests 04/12/21 01:28: White Blood Count 13.9H Blood Pressure 86 /73 Mean: 77 04/12/21 01:28: Lactic Acid Level 3.71*H Laboratory Tests 04/12/21 01:28: Creatinine 1.19, INR Comment 1.1, Platelet Count 228, Total Bilirubin 1.0 Results/Orders Lab Results Laboratory Tests Test 04/12/21 01:28 04/12/21 01:45 04/12/21 03:40 Range/Units White Blood Count 13.9 H 4.3-11.0 10^3/uL Red Blood Count 4.58 3.80-5.11 10^6/uL Hemoglobin 14.0 11.5-16.0 g/dL Hematocrit 42 35-52 % Mean Corpuscular Volume 91 80-99 fL Mean Corpuscular Hemoglobin 31 25-34 pg Mean Corpuscular Hemoglobin Concent 34 32-36 g/dL Red Cell Distribution Width 12.6 10.0-14.5 % Platelet Count 228 130-400 10^3/uL Mean Platelet Volume 10.0 9.0-12.2 fL Immature Granulocyte % (Auto) 1 % Neutrophils (%) (Auto) 91 H 42-75 % Lymphocytes (%) (Auto) 4 L 12-44 % Monocytes (%) (Auto) 4 0-12 % Eosinophils (%) (Auto) 0 0-10 % Basophils (%) (Auto) 0 0-10 % Neutrophils # (Auto) 12.6 H 1.8-7.8 10^3/uL Lymphocytes # (Auto) 0.6 L 1.0-4.0 10^3/uL Monocytes # (Auto) 0.6 0.0-1.0 10^3/uL Eosinophils # (Auto) 0.0 0.0-0.3 10^3/uL Basophils # (Auto) 0.0 0.0-0.1 10^3/uL Immature Granulocyte # (Auto) 0.1 0.0-0.1 10^3/uL Neutrophils % (Manual) 87 % Lymphocytes % (Manual) 1 % Monocytes % (Manual) 4 % Band Neutrophils 8 % Blood Morphology Comment NORMAL Prothrombin Time 15.0 H 12.2-14.7 SEC INR Comment 1.1 0.8-1.4 Activated Partial Thromboplast Time 33 24-35 SEC D-Dimer 1.27 H 0.00-0.49 UG/ML Sodium Level 129 L 135-145 MMOL/L Potassium Level 3.0 L 3.6-5.0 MMOL/L Chloride Level 94 L 98-107 MMOL/L Carbon Dioxide Level 18 L 21-32 MMOL/L Anion Gap 17 H 5-14 MMOL/L Blood Urea Nitrogen 8 7-18 MG/DL Creatinine 1.19 0.60-1.30 MG/DL Estimat Glomerular Filtration Rate 50 BUN/Creatinine Ratio 7 Glucose Level 494 *H 70-105 MG/DL Mean Blood Glucose 235 H <=126 mg/dL Hemoglobin A1c 9.8 H 4.0-5.6 % Lactic Acid Level 3.71 *H 0.50-2.00 MMOL/L Calcium Level 9.1 8.5-10.1 MG/DL Corrected Calcium 9.5 8.5-10.1 MG/DL Total Bilirubin 1.0 0.1-1.0 MG/DL Aspartate Amino Transf (AST/SGOT) 74 H 5-34 U/L Alanine Aminotransferase (ALT/SGPT) 99 H 0-55 U/L Alkaline Phosphatase 100 40-136 U/L C-Reactive Protein High Sensitivity 31.84 H 0.00-0.50 MG/DL Total Protein 7.6 6.4-8.2 GM/DL Albumin 3.5 3.2-4.5 GM/DL Procalcitonin 1.54 H <0.10 NG/ML Urine Color YELLOW Urine Clarity CLEAR Urine pH 6.5 5-9 Urine Specific [place] 1.020 1.016-1.022 Urine Protein 2+ H NEGATIVE Urine Glucose (UA) 3+ H NEGATIVE Urine Ketones NEGATIVE NEGATIVE Urine Nitrite NEGATIVE NEGATIVE Urine Bilirubin NEGATIVE NEGATIVE Urine Urobilinogen 0.2 < = 1.0 MG/DL Urine Leukocyte Esterase NEGATIVE NEGATIVE Urine RBC (Auto) 3+ H NEGATIVE Urine RBC 2-5 H /HPF Urine WBC NONE /HPF Urine Squamous Epithelial Cells 2-5 /HPF Urine Crystals NONE /LPF Urine Bacteria NEGATIVE /HPF Urine Casts NONE /LPF Urine Mucus SMALL H /LPF Urine Culture Indicated CULTURE PENDING Lab Scanned Report Referred Lab Report [id number] Micro Results Microbiology 04/12/21 Blood Culture - Preliminary, Resulted Corynebacterium species 04/12/21 Urine Culture - Final, Complete Mixed Bacterial Radha 04/12/21 Blood Culture - Preliminary, Resulted Staph, Coag Neg (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[employer]) Vital Signs/I&O 04/12/21 04/12/21 04/12/21 04/12/21 01:10 01:10 01:10 01:56 Temp 38.9 38.9 Pulse 134 Resp 30 B/P (MAP) 146/84 (104) Pulse Ox 91 93 O2 Delivery Nasal Cannula Nasal Cannula Room Air O2 Flow Rate 3.00 3.00 Capillary Refill : Blood Pressure Mean: 77 Point of Care Testing Finger Stick Blood Glucose: 352 Blood Glucose Action Taken: RN NOTIFIED Diagnostic Imaging Diagonstic Imaging: Xray Plain Films/CT/US/NM/MRI: chest Time of Consult: 03:39 Critical Care Note Critical Care Start Time: 16:45 Stop Time: 17:00 Departure Impression Primary Impression: Pneumonia due to COVID-19 virus Additional Impression: Hypoxia Disposition: ADMITTED INPATIENT Condition: Stable Admissions Decision to Admit Reason: Admit from ER (General) Decision to Admit/Date: Apr 12, 2021 Time/Decision to Admit Time: 03:39 Departure-Patient Inst. Referrals: [facility] (PCP) Primary Care Physician PAM GLEASON MD Apr 18, 2021 04:38
== END 2021-04-15 00:17 | disposition expired | DRG 208 ==
LOC: EDUNIT# 01:00 → ER 01:03 → 4TH 03:40 → ICU 04-13 08:50
PROVIDERS: ADMIT Family Medicine; ATTEND Family Medicine
PROC: 5A09357 Assistance with Respiratory Ventilation, Less than 24 Consecutive Hours, Continuous Positive Airway Pressure (ICD-10-PCS; principal; 2021-04-13)
PROC: 5A1945Z Respiratory Ventilation, 24-96 Consecutive Hours (ICD-10-PCS; 2021-04-13)
PROC: 0BH17EZ Insertion of Endotracheal Airway into Trachea, Via Natural or Artificial Opening (ICD-10-PCS; 2021-04-13)
DX: U07.1 COVID-19 (principal); J12.82 Pneumonia due to coronavirus disease 2019; J96.01 Acute respiratory failure with hypoxia; A41.89 Other specified sepsis; R65.21 Severe sepsis with septic shock; Z68.44 Body mass index [BMI] 60.0-69.9, adult; D68.69 Other thrombophilia; N17.9 Acute kidney failure, unspecified; I48.0 Paroxysmal atrial fibrillation; Z66 Do not resuscitate; Z73.0 Burn-out; Z79.899 Other long term (current) drug therapy; I10 Essential (primary) hypertension; K21.9 Gastro-esophageal reflux disease without esophagitis; E66.01 Morbid (severe) obesity due to excess calories; Z87.891 Personal history of nicotine dependence; R79.89 Other specified abnormal findings of blood chemistry; E11.65 Type 2 diabetes mellitus with hyperglycemia
CPT/HCPCS: 36415; 36600; 71045; 80053; 81000; 82805; 82947; 83036; 83605; 83735; 84100; 84145; 84478; 85007; 85025; 85027; 85379; 85610; 85730; 86141; 87040; 87070; 87077; 87088; 87186; 87205; 93005; 93306; 94002; 94003; 94640; 94660; 94760; 94799; 96361; 96374